=== PATIENT | female | born 1990 | race Caucasian/White ===

== ENCOUNTER 2017-10-15 16:02 | Emergency (ER) | payer OTHER ==
[~2017-10-15] VITALS: Ht 170.2 cm; Wt 129.3 kg
[~2017-10-15 16:02] MED LIST: CHOL400T PO; TOP100 PO
[2017-10-15 16:24] VITALS: BP 119/89
[2017-10-15 16:48] VITALS: BP 118/85
== END 2017-10-15 16:50 | disposition home or self-care (01) ==
LOC: MED 16:02
DX: E65 Localized adiposity (principal); J45.909 Unspecified asthma, uncomplicated; Z79.899 Other long term (current) drug therapy
CPT/HCPCS: 99283

== ENCOUNTER 2018-07-29 13:34 | Inpatient (IN) | payer OTHER ==
[~2018-07-29] VITALS: Ht 175.3 cm; Wt 108.0 kg
[2018-07-29 13:40] VITALS: BP 127/50
--- NOTE | 2018-07-29 13:50 | NUR ---
brought in by EMS from home---mother called 911 as pt with repeated tonic clonic seizure activity 45mins given 2.5mg versed IN x 2 by fire rescue followed by 5mg versed IM no injury no incontinent noted upon arrival to ER, pt answering questions holding conversation----admits to have had a recent sinus infection
--- NOTE | 2018-07-29 14:36 | NUR ---
DR SHAH AT BEDSIDE FOR PT EVAL
[2018-07-29] MEDS ORDERED: NACL 0.9% 1,000 ML IV ONE (14:43)
[2018-07-29] MEDS ORDERED: NACL 0.9% 1,000 ML IV SCH (14:43)
[2018-07-29] MEDS ORDERED: ONDANSETRON 4 MG/2 ML VIAL IVP ONE (14:45)
[2018-07-29] MEDS ORDERED: LORazepam 2 MG/ML VIAL IVP ONE (14:45)
[2018-07-29] MEDS ORDERED: PROMETHAZINE 25 MG/ML VIAL IM ONE (14:45)
--- NOTE | 2018-07-29 14:59 | NUR ---
PT ASSISTED ONTO BED DRUMMOND. UNABLE TO GIVE URINE AT THIS TIME.
--- NOTE | 2018-07-29 15:02 | NUR ---
SHEY EMT AT BEDSIDE FOR EKG
--- NOTE | 2018-07-29 15:20 | NUR ---
WITNESSED TONIC CLONIC SEIZURE LASTING FOR 7 MINS. ATIVAN GIVEN ORDERED. PT AAO X4. PERRL BRISK 3 MM. FULL CLEAR SPEECH. NO INCONTINENCE NOTED. PT DENIES SOB. DR SHAH AT BEDSIDE FOR PT EVALUATION
[2018-07-29 15:48] LABS: BASOPHILS # (AUTO) 0.1 K/uL (0.00-0.22); BASOPHILS % (AUTO) 0.6 % (0.0-2.0); EOSINOPHILS # (AUTO) 0.3 K/uL (0-0.4); EOSINOPHILS % (AUTO) 3.2 % (0.0-4.0); HEMATOCRIT 40.8 % (36-48); HEMOGLOBIN 13.3 g/dL (12.0-16.0); LYMPHOCYTES % (AUTO) 21.8 % (20.5-51.1); MEAN CORPUSCULAR HEMOGLOBIN 28 pg (27-31); MEAN CORPUSCULAR HGB CONC 33 g/dL (33-37); MEAN CORPUSCULAR VOLUME 86.2 fL (80-94); MONOCYTES # (AUTO) 0.7 K/uL (0.8-1.0); MONOCYTES % (AUTO) 7.3 % (1.7-9.3); NEUTROPHILS # (AUTO) 6.2 K/uL (1.8-7.7); NEUTROPHILS % (AUTO) 67.1 % (42.2-75.2); PLATELET COUNT (AUTO) 179 K/uL (140-450); RED BLOOD CELL COUNT(AUTO) 4.73 MIL/uL (4.20-5.40); RED CELL DISTRIBUTION WIDTH 14.1 % (11.6-13.7); WHITE BLOOD COUNT (AUTO) 9.2 K/uL (4.8-10.8)
--- NOTE | 2018-07-29 15:50 | NUR ---
Note kavitha in ED - 07/29/18 at 1659 by MED WITNESSED TONIC CLONIC SEIZURES LASTING APPROX 4 MINS. PT AAO X4 FULL CLEAR SPEECH. PERRL BRISK 3 MM. NO TRAUMA OR INJURY SUSTAINED. SAFETY ENSURED. WILL CONTINUE TO MONITOR.
--- NOTE | 2018-07-29 15:50 | NUR ---
WITNESSED TONIC CLONIC SEIZURES LASTING APPROX 4 MINS. PT AAO X4 FULL CLEAR SPEECH. PT RESPONSIVE AND FOLLOW COMMANDS. PERRL BRISK 3 MM. NO TRAUMA OR INJURY SUSTAINED. SAFETY ENSURED. WILL CONTINUE TO MONITOR.
--- NOTE | 2018-07-29 15:55 | NUR ---
OBTAINED URINE VIA CATH. CALLED LAB FOR CHILI POWDER MIXER.
--- NOTE | 2018-07-29 16:13 | NUR ---
PT TAKEN TO CT VIA BED. PT PLACED ON MONITOR. CHAPERONED PT. PT CONVERSATING APPROPRIATELY
--- NOTE | 2018-07-29 16:14 | NUR ---
PT TAKEN TO CT ACCOMPANIED BY NURSE HOOD
[2018-07-29 16:15] LABS: ANION GAP 14.2 (8-16); CARBON DIOXIDE 24.6 mmol/L (21-32); CHLORIDE 106 mmol/L (98-107); GFR ARICAN-AMERICAN 86 mL/min (>90); GLUCOSE 93 mg/dL (74-106); POTASSIUM 3.8 mmol/L (3.5-5.1); SODIUM SERUM 141 mmol/L (136-145); UREA NITROGEN, BLOOD 16 mg/dL (7-18)
--- NOTE | 2018-07-29 16:20 | NUR ---
WITNESSED SEIZURE WITH JERKING MOVEMENTS APPROX [address] PT TAKEN BACK TO ROOM VIA BED WITH CAN DRAGGER. NOTIFIED CHARGE NURSE. PT RESPONSIVE TO VOICE, ABLE TO FOLLOW COMMANDS, FULL CLEAR SPEECH. PERRL BRISK 3 MM. PT PLACED BACK ON FULL ONLINE SERVICES MANAGER. SEIZURE PRECAUTIONS BACK ON. WILL CONTINUE TO MONITOR.
[2018-07-29 16:28] LABS: ALBUMIN 3.6 g/dL (3.4-5.0); ASPARTATE AMINOTRANSFERASE 18 U/L (15-37); TOTAL BILIRUBIN 0.4 mg/dL (0.0-1.0)
--- NOTE | 2018-07-29 16:35 | NUR ---
RADIOLOGY AT BEDSIDE.
[2018-07-29] MEDS ORDERED: diphenhydrAMINE 50 MG/ML VIAL IVP ONE (16:40)
--- NOTE | 2018-07-29 17:10 | NUR ---
PT IS AAO X4. FUL CLEAR SPEECH. CONVERSATING WITH MOTHER APPROPRIATELY. NO SIGNS AND SYMPTOMS OF DISTRESS NOTED. SAFETY ENSURED. MOTHER AT BEDSIDE.
[2018-07-29 17:50] LABS: ACETONE, SERUM NEGATIVE (NEGATIVE)
[2018-07-29 17:59] LABS: MAGNESIUM 1.8 mg/dL (1.8-2.4)
[2018-07-29 18:09] LABS: AMYLASE 47 U/L (25-115); LIPASE 148 U/L (73-393)
--- NOTE | 2018-07-29 18:22 | NUR ---
PT ACTIVELY SEIZING WITH JERKING MOVEMENTS. V/S: 128/58, 125, 100% 2LPM VIA NC, 19. DR SHAH NOTIFIED. PT SAFETY ENSURED. RN AT BEDSIDE
--- NOTE | 2018-07-29 18:24 | NUR ---
JERKING MOVEMENTS NOTED LASTING APPROX 7 MINS. PT RESPONSIVE TO COMMANDS. OPENS EYES WHEN ASKED, PT PERRL BRISK 3MM. NO TRAUMA NOTED. SAFETY ENSURED. RN AT BEDSIDE FOR MONITORING.
[2018-07-29 18:26] LABS: APPEARANCE,URINE CLEAR (CLEAR); BILIRUBIN,URINE NEGATIVE (NEGATIVE); BLOOD, URINE 1+ (NEGATIVE); COLOR,URINE YELLOW (YELLOW); LEUKOCYTE ESTERASE ,URINE NEGATIVE (NEGATIVE); NITRITE, URINE NEGATIVE (NEGATIVE); UGLUCOSE NEGATIVE (NEGATIVE)
[2018-07-29 18:35] LABS: RBC,URINE 0-5 /HPF (0-5)
[2018-07-29 18:36] LABS: WBC,URINE 0-5 /HPF (0-5)
[2018-07-29 18:38] LABS: BARBITURATE, URINE NEG. ng/ml (NEG <=200); BENZODIAZEPINE, URINE POS. ng/mL (NEG <=200); CANNABINOID, URINE NEG. ng/mL (NEG <=50); COCAINE, URINE NEG. ng/mL (NEG <=300); OPIATE, URINE NEG. ng/mL (NEG <=2000); PHENCYCLIDINE SCREEN,URINE NEG. ng/mL (NEG <=25)
--- NOTE | 2018-07-29 19:10 | NUR ---
received report from IDALMIS Fuentes. assumed care at this time
--- NOTE | 2018-07-29 19:10 | NUR ---
Pt report given to IDALMIS Gaines. Transfer of care at this time.
--- NOTE | 2018-07-29 19:33 | NUR ---
Patient will be admitted to care of Dr. Venegas. Admited to MST. Will go to room 126A. Belongings list completed. VSS at time of transfer. Report to IDALMIS Palm. Transfer fo care at this time
[2018-07-29] MEDS ORDERED: BISACODYL 10 MG SUPP RC PRN (19:35)
[2018-07-29] MEDS ORDERED: guaiFENesin DM 200/20 MG-10 ML 10 ML UDC PO PRN (19:35)
[2018-07-29] MEDS ORDERED: ALUMINUM HYD/MAG/SIMETHICONE 30 ML UDC PO PRN (19:35)
[2018-07-29] MEDS ORDERED: MORPHINE SULFATE 2 MG/ML SYR IVP PRN (19:35)
[2018-07-29] MEDS ORDERED: LORazepam 2 MG/ML VIAL IVP PRN (19:35)
[2018-07-29] MEDS ORDERED: ACETAMINOPHEN 325 MG TAB PO PRN (19:35)
[2018-07-29] MEDS ORDERED: ALBUTEROL 0.083% 2.5 MG/3 ML NEBU INH PRN (19:35)
[2018-07-29] MEDS ORDERED: ZOLPIDEM 5 MG TAB PO PRN (19:35)
[2018-07-29] MEDS ORDERED: diphenhydrAMINE 50 MG/ML VIAL IVP PRN (19:35)
[2018-07-29] MEDS ORDERED: POTASSIUM CHLORIDE 10 MEQ TABER PO PRN (19:35)
[2018-07-29] MEDS ORDERED: HYDROcodone/APAP 5/325 MG 1 TAB TAB PO PRN ×2 (19:35)
[2018-07-29] MEDS ORDERED: cloNIDine 0.1 MG TAB PO PRN (19:35)
[2018-07-29] MEDS ORDERED: MAG SULF 2000 MG/WATER PREMIX 50 ML IV PRN (19:35)
[2018-07-29] MEDS ORDERED: POTASSIUM CHLORIDE 40 MEQ, LIDOCAINE 1% 25 MG in NACL 0.9% 250 ML IV PRN (19:35)
[2018-07-29] MEDS ORDERED: ACETAMINOPHEN 650 MG SUPP RC PRN (19:35)
[2018-07-29] MEDS ORDERED: DOCUSATE SODIUM 250 MG GELCAP PO PRN (19:35)
[2018-07-29] MEDS ORDERED: IPRATROPIUM 0.02% 0.5 MG/2.5 ML NEBU INH PRN (19:35)
[2018-07-29] MEDS ORDERED: ONDANSETRON 4 MG/2 ML VIAL IVP PRN (19:35)
[2018-07-29] MEDS ORDERED: SODIUM PHOSPHATE 118 ML ENEM RC PRN (19:35)
[2018-07-29] MEDS ORDERED: MAGNESIUM OXIDE 400 MG TAB PO PRN (19:35)
[2018-07-29 19:40] VITALS: BP 101/59
--- NOTE | 2018-07-29 19:40 | NUR ---
PT ARRIVED TO UNIT VIA GURNEY WITH MOTHER AT BEDSIDE. PT AMBULATED TO UNIT BED UNASSISTED AND TOLERATED WELL. RECEIVED REPORT FROM ER NURSE. PT AOX4 WITH HX: SEIZURE, HIGH FUNCTIONING AUTISM, BI-POLAR (MEDICINE NON-COMPLIANCE), ON ROOM AIR WITH LEFT HAND #20G INSERTED BY PARAMEDICS. DISCUSSED PLAN OF CARE AND PT VERBALIZED UNDERSTANDING. NO S/S OF RESPIRATORY DISTRESS OR DISCOMFORT AT THIS TIME. BED IN LOWEST POSITION, BED BREAKS ON, BOTH SIDE RAILS UP, AND SEIZURE PRECAUTIONS IN PLACE. BEDSIDE TABLE AND CALL LIGHT ARE WITHIN REACH. WILL CONTINUE TO MONITOR.
--- NOTE | 2018-07-29 20:00 | NUR ---
VITAL SIGNS TAKEN AND TOLERATED WELL. MRSA SWAB COLLECTED AND TOLERATED WELL. NO S/S OF RESPIRATORY DISTRESS OR DISCOMFORT NOTED AT THIS TIME. WILL CONTINUE TO MONITOR.
--- NOTE | 2018-07-29 21:00 | NUR ---
LEFT HAND IV SITE WAS NOT GIVING BLOOD RETURN AND HURT PT WHEN FLUSHED. TEGADERM HAS BEEN TAMPERED WITH MY PT- HOLE EXACTLY WHERE IV PUNCTURED THE SKIN AND FOUND PT TAKING MEDICAL TAPE OFF OF THE IV SITE. EDUCATED PT ON NOT TAKING OFF TAPE FROM IV SITE. NEW IV SITE INSERTED BY CHARGE NURSE IVY-IDALMIS ON FIRST ATTEMPT. LEFT FA #22G. PT TOLERATED WELL. NO S/S OF RESPIRATORY DISTRESS OR DISCOMFORT NOTED AT THIS TIME. WILL CONTINUE TO MONITOR.
[2018-07-29] MEDS: levETIRAcetam 500 MG in NACL 0.9% 100 ML IV SCH (21:02)
--- NOTE | 2018-07-29 21:02 | NUR ---
SCHEDULED MEDICATION KEPPRA GIVEN AND TOLERATED WELL. NO S/S OF RESPIRATORY DISTRESS OR DISCOMFORT NOTED AT THIS TIME. WILL CONTINUE TO MONITOR.
[2018-07-29] MEDS ORDERED: levETIRAcetam 100 MG/ML VIAL IV ONE (21:07)
--- NOTE | 2018-07-29 22:00 | NUR ---
PT SLEEPING IN BED. NO S/S OF RESPIRATORY DISTRESS OR DISCOMFORT NOTED AT THIS TIME. WILL CONTINUE TO MONITOR.
[2018-07-30] VITALS: BP 92/57
--- NOTE | 2018-07-30 | NUR ---
VITAL SIGNS TAKEN AND TOLERATED WELL. NO S/S OF RESPIRATORY DISTRESS OR DISCOMFORT NOTED AT THIS TIME. WILL CONTINUE TO MONITOR.
--- NOTE | 2018-07-30 02:00 | NUR ---
PT CONTINUES TO SLEEP IN BED. NO S/S OF RESPIRATORY DISTRESS OR DISCOMFORT NOTED AT THIS TIME. WILL CONTINUE TO MONITOR.
[2018-07-30 04:00] VITALS: BP 90/53
--- NOTE | 2018-07-30 04:00 | NUR ---
VITAL SIGNS TAKEN AND TOLERATED WELL. NO S/S OF RESPIRATORY DISTRESS OR DISCOMFORT NOTED AT THIS TIME. WILL CONTINUE TO MONITOR.
--- NOTE | 2018-07-30 04:55 | NUR ---
CAME INTO PT ROOM AND PT STATED, "I'M ABOUT TO HAVE A SEIZURE." I NOTICED THE RIGHT SIDED RAIL PADDING WAS OFF AND SHE SAID SHE WAS COLD SO SHE TOOK THE BLANKET TO COVER HERSELF. I ASKED HER WHAT SHE WAS FEELING THAT SHE KNOWS SHE'S GOING TO HAVE A SEIZURE AND SHE DIDN'T RESPOND. I LEFT THE ROOM TO GET ANOTHER BLANKET TO PAD THE SIDE RAIL AND FOUND PT ACTIVELY SEIZING IN BED. CALLED CHARGE NURSE KEVIN FOR HELP WITH TAKING ATIVAN OUT OF THE PIXIS. CHARGE NURSE ARRIVED WITH ATIVAN AND WAS ADMINISTERED. PT TOLERATED WELL. PT CONTINUES TO SEIZE SHAKING HER BODY AND CHANGING POSITIONS FROM LEFT TO RIGHT. NO S/S OF RESPIRATORY DISTRESS OR DISCOMFORT NOTED AT THIS TIME. WILL CONTINUE TO MONITOR.
[2018-07-30] MEDS: LORazepam 2 MG/ML VIAL IVP PRN ×2 (05:12→10:36)
--- NOTE | 2018-07-30 05:12 | NUR ---
ATIVAN WAS GIVEN SEIZURE PROTOCOL WITH CHARGE NURSE KEVIN PRESENT. PT TOLERATED WELL. NO S/S OF RESPIRATORY DISTRESS OR DISCOMFORT NOTED AT THIS TIME. WILL CONTINUE TO MONITOR.
--- NOTE | 2018-07-30 05:30 | NUR ---
INTERMITTENT SEIZING WITH CHARGE NURSE IVY-IDALMIS PRESENT THAT CEASED AT 0519 AND IS NOW CALM IN BED SLEEPING. ACCORDING TO ORDER TO DELIVERY SUPERVISOR, PT CONTINUES TO HAVE SR WITH ARTIFACTS. NO S/S OF RESPIRATORY DISTRESS OR DISCOMFORT NOTED AT THIS TIME. WILL CONTINUE TO MONITOR.
--- NOTE | 2018-07-30 07:38 | NUR ---
RECEIVED HAND OFF REPORT FROM ASPHALT SPREADER NURSE PT IS STABLE AND IN NO APPARENT DISTRESS. ALL SAFETY MEASURES ARE IN PLACE WILL CONTINUE TO MONITOR,
[2018-07-30 08:00] VITALS: BP 99/56
--- NOTE | 2018-07-30 09:13 | NUR ---
PATIENT HAS BEEN SCREENED AND CATEGORIZED MODERATE NUTRITION RISK. PATIENT WILL BE SEEN WITHIN 3-5 DAYS OF ADMISSION. 08/01/18RAMAN BA[address]
--- NOTE | 2018-07-30 09:30 | NUR ---
FREQUENT ROUNDING ON PT PT IS AWAKE AND STABLE IN BED, ALL SAFETY MEASURES ARE IN PLACE. PT IS TALKING WILL CONTINUE TO MONITOR,
[2018-07-30] MEDS: levETIRAcetam 500 MG in NACL 0.9% 100 ML IV SCH (09:38)
--- NOTE | 2018-07-30 10:43 | NUR ---
ATIVAN GIVEN PER ORDER. PT FAMILY CALLED AND STATED THE PATIENT WAS EXPERIENCING A SEIZURE. ARRIVED TO THE ROOM AT 1026 PT WAS SHOWING SIGNS OF SEIZURE. MOTHER AT PT BEDSIDE PT WAS ON HER SIDE. WENT TO GET ATIVAN. CAME BACK AT 1028 PT NO LONGER SHOWING SIGNS OF SEIZURE TRIED TO AROUSE PT TO SEE HER NEURO STATUS PT STARTED SHOWING SIGNS OF SEIZURE AGAIN. FROM 1033 TO 1036. ASSESSED PT TELE STRIP AND PLACED IN PT CHART.
--- NOTE | 2018-07-30 11:16 | NUR ---
FREQUENT ROUNDING PT IS AWAKE IN BED PT IS STABLE AND APPEARS IN NO APPARENT DISTRESS. ALL SAFETY MEASURES ARE IN PLACE. FAMILY IS AT THE BEDSIDE. WILL CONTINUE TO MONITOR.
[2018-07-30 12:37] VITALS: BP 114/65
--- NOTE | 2018-07-30 13:35 | NUR ---
PT WAS HAVING ANOTHER SEIZURE LIKE EPISODE FROM [address] AT PT BEDSIDE DR STATED THAT THOSE ARE SEIZURES. PT IS NOW STABLE AND IN NO APPARENT DISTRESS. ALL SAFETY MEASURES ARE IN PLACE WILL CONTINUE TO MONITOR. PT FAMILY IS AT BEDSIDE.
--- NOTE | 2018-07-30 15:38 | NUR ---
ENDORSED PT TO ALDA FOR CONTINUITY OF CARE. PT IS AWAKE AND STABLE PT IS IN NO APPARENT DISTRESS. AND ALL SAFETY MEASURES ARE IN PLACE.
--- NOTE | 2018-07-30 15:38 | NUR ---
Received report from Priti sprague. Pt stable at this time. Call light within reach.
[2018-07-30 16:00] VITALS: BP 121/75
--- NOTE | 2018-07-30 16:00 | NUR ---
Pt assisted back to bed after toileting. Pt with wobbly gait, able to amb with handheld assist. Call light within reach.
--- NOTE | 2018-07-30 16:05 | NUR ---
Pt observed having generalized body shaking. Bilat padded siderails up for safety. Pt nonverbal but obeys commands when instructed to raise arm & to push self up higher in bed. No SOB noted, no excessive oral secretions. Vital signs obtained. Pt able to reposition self with min assist. Call light within reach. Will cont to monitor.
--- NOTE | 2018-07-30 17:36 | NUR ---
Pt seen ambulating in hallway. Asked where she is going, but pt does not respond. Walked alongside pt, noted to be trying to open exit doors. Pt started running towards exits. Security paged to assist. Pt was redirected by security personnel back to her room. Spoke to Art (father) on the phone for assistance. Per Art, he will call pt's mother to come back & monitor pt at bedside. Paged Dr. Khoury to report behavior and prn IM med. Awaiting call back.
[2018-07-30] MEDS ORDERED: LORazepam 2 MG/ML VIAL IM/IVP PRN ×2 (17:40)
[2018-07-30] MEDS ORDERED: LORazepam 2 MG/ML VIAL ONE (17:57)
--- NOTE | 2018-07-30 19:20 | NUR ---
ENDORSED PT TO NOC SHIFT NURSE. NO DISTRESS NOTED AT THIS TIME. FAMILY AT BEDSIDE.
--- NOTE | 2018-07-30 19:21 | NUR ---
RECEIVED REPORT FROM DAY SHIFT NURSE ALDA-RN AT BEDSIDE. PT AOX4 WITH HX: SEIZURE, HIGH FUNCTIONING AUTISM, BI-POLAR (MEDICINE NON-COMPLIANCE), ON ROOM AIR. NO IV SITE IN PLACE. PT FAMILY AT BEDSIDE. DISCUSSED PLAN OF CARE AND PT VERBALIZED UNDERSTANDING. NO S/S OF RESPIRATORY DISTRESS OR DISCOMFORT AT THIS TIME. BED IN LOWEST POSITION, BED BREAKS ON, BOTH SIDE RAILS UP, AND SEIZURE PRECAUTIONS IN PLACE. BEDSIDE TABLE AND CALL LIGHT ARE WITHIN REACH. WILL CONTINUE TO MONITOR.
[2018-07-30 20:00] VITALS: BP 122/81
--- NOTE | 2018-07-30 20:00 | NUR ---
VITAL SIGNS TAKEN AND TOLERATED WELL. NO S/S OF RESPIRATORY DISTRESS OR DISCOMFORT NOTED AT THIS TIME. WILL CONTINUE TO MONITOR.
--- NOTE | 2018-07-30 21:01 | NUR ---
PT C/O HEADACHE. TYLENOL GIVEN AND TOLERATED WELL. NO S/S OF RESPIRATORY DISTRESS OR DISCOMFORT NOTED AT THIS TIME. WILL CONTINUE TO MONITOR.
--- NOTE | 2018-07-30 22:00 | NUR ---
PT REQUESTED TO TAKE A SHOWER. SELENA MELO AND PT'S SISTER ASSISTED PT IN THE SHOWER AND TOLERATED WELL. PT NOW BACK IN BED RESTING. NO S/S OF RESPIRATORY DISTRESS OR DISCOMFORT NOTED AT THIS TIME. WILL CONTINUE TO MONITOR.
[2018-07-31] VITALS: BP 91/54
--- NOTE | 2018-07-31 | NUR ---
VITAL SIGNS TAKEN AND TOLERATED WELL. NO S/S OF RESPIRATORY DISTRESS OR DISCOMFORT NOTED AT THIS TIME. WILL CONTINUE TO MONITOR.
--- NOTE | 2018-07-31 02:00 | NUR ---
PT SLEEPING IN BED. NO S/S OF RESPIRATORY DISTRESS OR DISCOMFORT NOTED AT THIS TIME. WILL CONTINUE TO MONITOR.
[2018-07-31 04:00] VITALS: BP 98/50
--- NOTE | 2018-07-31 04:00 | NUR ---
VITAL SIGNS TAKEN AND TOLERATED WELL. NO S/S OF RESPIRATORY DISTRESS OR DISCOMFORT NOTED AT THIS TIME. WILL CONTINUE TO MONITOR.
--- NOTE | 2018-07-31 06:00 | NUR ---
PT CONTINUES TO SLEEP IN BED. NO S/S OF RESPIRATORY DISTRESS OR DISCOMFORT NOTED AT THIS TIME. WILL CONTINUE TO MONITOR.
--- NOTE | 2018-07-31 07:15 | NUR ---
RECEIVED BEDSIDE REPORT FROM MACHINIST 2ND SHIFT NURSE FOR CONTINUITY OF CARE. PATIENT IS SLEEPING ON BED AT THIS TIME. EVEN AND UNLABORED CHEST RISES NOTED, ON RA. PATIENT IS AAOX4. NO SIGNS OF DISTRESS NOTED. NO IV SITE DEVELOPED, PER MACHINIST 2ND SHIFT NURSE, PATIENT REMOVED THE IV AND REFUSED TO GET ANOTHER ONE. SKIN INTACT AND CLEAN. PATIENT IS ABLE TO AMBULATE AND CONTINENT. TELE MONITOR ATTACHED. SAFETY MEASURES IN PLACE. BED IN LOW POSITION AND CALL LIGHT WITHIN REACH.
--- NOTE | 2018-07-31 07:38 | NUR ---
RAPID RESPONSE CALLED AT THIS TIME PATIENT PRESENTING WITH SEIZURES SATURTATION 97% OM ROOM AIR HR 122 RR 20 BREATH SOUNDS DECREASED WITH NO EVIDENCE OF SOB RHONCHI OR WHEEZING
--- NOTE | 2018-07-31 07:40 | NUR ---
PATIENT PRESENTING WITH CONTINUED SEIZURES AND DESCENDING SATURATION TO 89% PLACED ON SUPPLEMENTAL OXYGEN AT 15LPM VIA NON REBREATHER SATURATION ASCENDING TO 100% HR 128 RR 20 BREATH SOUNDS DECREASED BILATERAL NO SOB NOTED
--- NOTE | 2018-07-31 07:43 | NUR ---
CONTINUANCE OF SEIZURES IN PROGRESS SATURATION 99% ON SUPPLEMENTAL OXYGENT AT 15 LPM VIA NON REBREATHER HR 119 RR 20 BREATH SOUNDS CLEAR BILATERAL NO SOB NOTED
--- NOTE | 2018-07-31 07:48 | NUR ---
SEIZURES IN PROGRESS SATURATION 99% ON SUPPLEMENTAL OXYGEN AT 15 LPM VIA NON REBREATHER HR 110 RR 20 BREATH SOUNDS CLEAR BILATERAL NO SOB NOTED
--- NOTE | 2018-07-31 07:50 | NUR ---
SEIZURES CONTROLLED SATURATION 100% ON SUPPLEMENTAL OXYGEN AT 15 LPM VIA NON REBREATHER SATURATION 100% HR 102 RR 20 BREATH SOUNDS CLEAR BILATERAL NO SOB NOTED
[2018-07-31] MEDS ORDERED: LORazepam 2 MG/ML VIAL ONE ×2 (07:54→08:01)
[2018-07-31 08:00] VITALS: BP 106/66
--- NOTE | 2018-07-31 08:20 | NUR ---
MOVED PATIENT INTO ROOM 107A. PATIENT IS AWAKE, RESPONSIVE WITH EYE OPENS. NO SIGNS OF DISTRESS NOTED. SAFETY MEASURES IN PLACE. TELE MONITOR ATTACHED.
--- NOTE | 2018-07-31 09:15 | NUR ---
PATIENT IS AWAKE AND READING MAGAZINE ON BED. NO SIGNS OF DISTRESS NOTED. TELE MONITOR ATTACHED. SAFETY MEASURES IN PLACE. BED IN LOW POSITION AND CALL LIGHT WITHIN REACH.
--- NOTE | 2018-07-31 09:45 | NUR ---
MOTHER JONATHAN WAS AT BEDSIDE AND TALKING TO PATIENT. NO SIGNS OF DISTRESS NOTED. SAFETY MEASURES IN PLACE. TELE MONITOR ATTACHED.
--- NOTE | 2018-07-31 09:50 | NUR ---
PATIENT HAS ANOTHER EPISODE OF PSEUDOSEIZURE AND ENDED IN 6 MINS. VITAL SIGNS ARE WITHIN PATIENT'S NORMAL PARAMETER. NO SIGNS OF INJURY OBSERVED. MOTHER JONATHAN IS BY BEDSIDE. SAFETY MEASURES IN PLACE. SEIZURE PADDING IN PLACE. TELE MONITOR ATTACHED. BED IN LOW POSITION. DR SANTILLAN NOTIFIED AND WAS AWARE.
--- NOTE | 2018-07-31 10:30 | NUR ---
DR SANTILLAN IS TALKING TO PATIENT AND PATIENT'S MOM JONATHAN AT BEDSIDE. NO SIGNS OF DISTRESS NOTED. SAFETY MEASURES IN PLACE.
--- NOTE | 2018-07-31 11:15 | NUR ---
DISCHARGE INSTRUCTION PROVIDED TO PATIENT AND MOTHER JONATHAN AT BEDSIDE. EDUCATED PATIENT AND MOTHER JONATHAN TO FOLLOW UP WITH MD, DISEASE MANAGEMENT, SIGNS AND SYMPTOMS, MEDICATION REGIMEN, SIDE EFFECT, AND DIET REGIMEN. MOTHER JONATHAN VERBALIZED UNDERSTANDING. PROVIDED PRINTED OUT DISCHARGE INSTRUCTION AND PRESCRIPTION. INSTRUCTED PATIENT AND MOTHER JONATHAN TO TAKE ALL THE BELONGINGS. PER JONATHAN, SHE IS WAITING FOR HER RIDE, IT MIGHT TAKE SOME TIME. PATIENT IS RESTING ON BED AT THIS TIME. NO SIGNS OF DISTRESS NOTED. SAFETY MEASURES IN PLACE.
--- NOTE | 2018-07-31 11:25 | NUR ---
PATIENT HAS CHANGE INTO HER OWN CLOTHES. PATIENT PULLED OUT THE IV BY HERSELF. CHECKED IV CANNULA AND ITS INTACT, MINIMAL BLEEDING AT IV SITE. PER JONATHAN, SHE IS STILL WAITING FOR HER RIDE.
[2018-07-31 12:00] VITALS: BP 115/65
--- NOTE | 2018-07-31 12:01 | NUR ---
PATIENT RECEIVED HER LUNCH TRAY AND EATING LUNCH ON BED AT THIS TIME. NO SIGNS OF DISTRESS NOTED. SAFETY MEASURES IN PLACE. AWAITING FOR RIDE TO ARRIVE THE HOSPITAL.
--- NOTE | 2018-07-31 12:20 | NUR ---
REMOVED ALL ARM BANDS. PATIENT TOOK ALL HER BELONGINGS. ESCORTED PATIENT TO THE LOBBY WITH WHEELCHAIR. PATIENT IS DISCHARGE AT THIS TIME IN STABLE CONDITION ACCOMPANIED BY MOTHER JONATHAN.
== END 2018-07-31 12:20 | disposition home or self-care (01) | DRG 756 ==
LOC: MED 13:34 → MMU 19:00 → MTU 07-31 09:18
PROVIDERS: ADMIT Internal Medicine Pulmonary Disease; ATTEND Internal Medicine Pulmonary Disease
DX: F44.5 Conversion disorder with seizures or convulsions (principal); Z91.14 Patient's other noncompliance with medication regimen; E66.9 Obesity, unspecified; F41.0 Panic disorder [episodic paroxysmal anxiety]; J45.909 Unspecified asthma, uncomplicated; F41.9 Anxiety disorder, unspecified; Z68.35 Body mass index [BMI] 35.0-35.9, adult; Z79.899 Other long term (current) drug therapy
CPT/HCPCS: 36415; 36600; 70450; 71045; 80053; 80305; 81001; 81025; 82009; 82150; 82803; 82948; 83605; 83690; 83735; 84484; 85025; 85610; 85730; 87081; 93005; 96361; 96372; 96374; 96375; 99285; G0482; J1200; J1953; J2060; J2405; J2550; J7030; Q0092

== ENCOUNTER 2018-07-31 21:23 | Inpatient (IN) | payer OTHER ==
[~2018-07-31] VITALS: Ht 170.2 cm; Wt 134.7 kg
[2018-07-31 21:25] VITALS: BP 131/65
--- NOTE | 2018-07-31 21:50 | NUR ---
TO ER BED 5
--- NOTE | 2018-07-31 21:55 | NUR ---
28/F BIB MOTHER FOR SI. PT ARRIVES TO ED WITH MULTIPLE SUPERFICIAL LACERATIONS TO BL WRISTS AND FOREARMS. PT DENIES ANY OTHER SYMPTOMS. PT AOX4, GCS 15, SKIN NORMAL WARM AND DRY, RR EVEN AND UNLABORED. 1:1 SITTER AT BEDSIDE WITH CLOSE MONITORING. ENVIRONMENT CHECKED FOR SAFETY, SAFETY MEASURES ENSURED. PT WAS PLACED IN GOWN, BELONGINGS SENT TO SECURITY. HX DEPRESSION RX PAXIL
--- NOTE | 2018-07-31 22:20 | NUR ---
TELEPSYCH REQUEST SENT
[2018-07-31 22:28] LABS: BASOPHILS % (AUTO) 0.6 % (0.0-2.0); EOSINOPHILS # (AUTO) 0.4 K/uL (0-0.4); EOSINOPHILS % (AUTO) 4.9 % (0.0-4.0); HEMOGLOBIN 12.8 g/dL (12.0-16.0); LYMPHOCYTES # (AUTO) 2.4 K/uL (2.5-16.5); MEAN CORPUSCULAR HEMOGLOBIN 29 pg (27-31); MEAN CORPUSCULAR HGB CONC 33 g/dL (33-37); MEAN CORPUSCULAR VOLUME 86.7 fL (80-94); MONOCYTES # (AUTO) 0.7 K/uL (0.8-1.0); MONOCYTES % (AUTO) 7.8 % (1.7-9.3); NEUTROPHILS # (AUTO) 5.2 K/uL (1.8-7.7); NEUTROPHILS % (AUTO) 59.7 % (42.2-75.2); PLATELET COUNT (AUTO) 191 K/uL (140-450); RED CELL DISTRIBUTION WIDTH 14.1 % (11.6-13.7); WHITE BLOOD COUNT (AUTO) 8.7 K/uL (4.8-10.8)
--- NOTE | 2018-07-31 22:33 | NUR ---
PT ATTEMPTED TO COLLECT URINE, UNABLE TO AT THIS TIME, WILL TRY AGAIN
[2018-07-31 22:37] LABS: ANION GAP 14.2 (8-16); CARBON DIOXIDE 26.5 mmol/L (21-32); CHLORIDE 106 mmol/L (98-107); CREATININE 1.1 mg/dL (0.6-1.3); GFR ARICAN-AMERICAN 77 mL/min (>90); GLUCOSE 88 mg/dL (74-106); POTASSIUM 3.7 mmol/L (3.5-5.1); SODIUM SERUM 143 mmol/L (136-145); UREA NITROGEN, BLOOD 13 mg/dL (7-18)
--- NOTE | 2018-07-31 22:40 | NUR ---
SPOKE WITH/GAVE REPORT TO PSYCH AUDRA GREENE OVER THE PHONE.
[2018-07-31 22:43] LABS: ACETAMINOPHEN < 0.5 ug/ml (10-30); ALBUMIN 3.5 g/dL (3.4-5.0); ASPARTATE AMINOTRANSFERASE 18 U/L (15-37); SALICYLATE < 2.8 mg/dL (2.8-20.0); TOTAL BILIRUBIN 0.5 mg/dL (0.0-1.0)
--- NOTE | 2018-07-31 23:00 | NUR ---
WOUND CARE PERFORMED ON BL WRIST AND FA BY JEFF EMT, PT TOLERATED WELL.
--- NOTE | 2018-08-01 00:30 | NUR ---
ATTEMPTED TO COLLECT URINE SAMPLE VIA 16FR STRAIGHT CATH WITH EDUCATION. FEMALE CHAPPERONE PABLOU AT BEDSIDE. UNSUCCESSFUL DUE TO PT RESTLESS AND TENSING MUSCLES DESPITE REASSURANCE. WILL ATTEMPT AGAIN LATER
--- NOTE | 2018-08-01 00:55 | NUR ---
PT LAYING IN BED, RR EVEN AND ULABORED. DENIES ANY PAIN. 1:1 SITTER WITH CLOSE MONITORING AT BEDSIDE, SAFETY MEASURES ENSURED. ALL NEEDS MET AT THIS TIME.
[2018-08-01 01:24] LABS: BARBITURATE, URINE NEG. ng/ml (NEG <=200); BENZODIAZEPINE, URINE POS. ng/mL (NEG <=200); CANNABINOID, URINE NEG. ng/mL (NEG <=50); COCAINE, URINE NEG. ng/mL (NEG <=300); OPIATE, URINE NEG. ng/mL (NEG <=2000); PHENCYCLIDINE SCREEN,URINE NEG. ng/mL (NEG <=25)
--- NOTE | 2018-08-01 04:04 | NUR ---
PT SITTING IN BED, RR EVEN AND ULABORED. VS NOTED, DENIES ANY PAIN. 1:1 SITTER WITH CLOSE MONITORING AT BEDSIDE, SAFETY MEASURES ENSURED. ALL NEEDS MET AT THIS TIME.
--- NOTE | 2018-08-01 04:10 | NUR ---
CALLED AND SPOKE WEmiliano PINEDA AT [facility], SHE INFORMED ME THAT SHE HAD CONTACTED 6 DIFFERENT FACILITIES, NO BEDS AVAILABLE.
[2018-08-01] MEDS ORDERED: ONDANSETRON 4 MG/2 ML VIAL IVP PRN (04:20)
[2018-08-01] MEDS ORDERED: LORazepam 2 MG/ML VIAL IVP PRN (04:20)
[2018-08-01] MEDS ORDERED: HYDROcodone/APAP 5/325 MG 1 TAB TAB PO PRN ×2 (04:20)
--- NOTE | 2018-08-01 04:35 | NUR ---
Patient will be admitted to care of DR. SANTILLAN. Admited to MEDSUR. Will go to room 109B. Belongings list completed. Report to IDALMIS AMAYA AT BEDSIDE.
[2018-08-01 05:00] VITALS: BP 109/68
--- NOTE | 2018-08-01 05:00 | NUR ---
ADMITTED A 28 F. FROM ER . CAME BY ALMA ACCOMPANIED BY ER NURSE AND SITTER1:1 DUE TO SUICIDAL ATTEMPT. PT WAS JUST DISCHARGED IN THIS UNIT YESTERDAY. PT IS AWAKE,ALERT AND ORIENTED X4 AT THIS TIME. WITH MULTIPLE LACERATIONS OF KENNETH WRIST. SHE VERBALIZED THAT SHE DID IT DUE TO DEPRESSION. WHICH PT CAN'T TELL THE CAUSE. DENIES ANY HALLUCINATION. NO IV ACCESS NOTED. ON OBSERVATION ONLY. PLAN OF CARE DISCUSSED WITH PT AND SEEMED PT VERBALIZED UNDERSTANDING AT THIS TIME. BED ON LOW POSITION. WITH NO OBJECTS THAT CAN BE USED TO HURT SELF. SHE JUST HAVE A MAGAZINE THAT SHE LIKES TO HAVE AT THIS TIME. WILL FOLLOW UP ADMIT ORDERS.
--- NOTE | 2018-08-01 05:30 | NUR ---
MRSA NARES SPECIMEN COLLECTED . WILL SEND TO LAB.
--- NOTE | 2018-08-01 07:16 | NUR ---
PT ASLEEP. ENDORSED PT IN STABLE CONDITION AT THIS TIME TO AM NURSE FOR CONTINUITY OF CARE.
--- NOTE | 2018-08-01 07:20 | NUR ---
PATIENT WAS SLEEPING COMFORTABLY, EASILY AROUSABLE BY NAME. RESPIRATION EVEN, UNLABOR ON ROOM AIR. SKIN DRY AND WARM. NO IV ACCESS AT THIS TIME. DENIED PAIN. ADMITTED TO HAVE SUICIDAL THOUGH, HOWEVER COULD NOT VERBALIZE ANY PLAN. ADMITTED TO HAVE HALLUCINATION, BUT STATED SHE DOES NOT KNOW WHAT IT IS. PLAN OF CARE WAS DISCUSSED WITH PATIENT. BED AT LOW POSITION, SIDE RAILS UP. 1:1 SITTER ENSURED
--- NOTE | 2018-08-01 07:32 | NUR ---
SIDE RAILS PADDED FOR SEIZURE PRECAUTIONS.
--- NOTE | 2018-08-01 07:50 | NUR ---
PATIENT HAS BEEN SCREENED AND CATEGORIZED LOW NUTRITION RISK. PATIENT WILL BE SEEN WITHIN 7 DAYS OF ADMISSION. 08/07/[address]
[2018-08-01 08:00] VITALS: BP 119/56
--- NOTE | 2018-08-01 08:22 | NUR ---
PATIENT WAS FOUND THRASHING, AND SHAKING IN BED, NOT RESPONSE TO VERBAL STIMULATION, BUT PULLED AWAY TO PAINFUL STIMULI, AND GRIMACED. WILL NOTIFY
--- NOTE | 2018-08-01 08:53 | NUR ---
CONTACTED DR. JOY[facility]S GROUP REGARDING PSYCH CONSULT, EXCHANGE WILL PAGE DR. MEJIA. AWAITING FOR CALL BACK. LORETA ASSIGNED MADE AWARE.
--- NOTE | 2018-08-01 09:00 | NUR ---
PATIENT BROKE THE PLASTIC CUP IN HALF AND CRYING AND THREATENED TO CUT HERSELF. SECURITY WAS NOTIFIED. PLASTIC CUP WAS REMOVED FROM PATIENT. PATIENT WAS GIVEN DRINKS AND MAGAZINE PER REQUEST. PATIENT IS STABLE AT THIS TIME. FAMILY WAS NOTIFIED.
--- NOTE | 2018-08-01 11:41 | NUR ---
Patient's [facility] supportive employment case manager, Yves Echevarria returned phone call, after patient's father provided consent for SW to speak to her. SW informed Yves of patient's hospitalization and requested any updates on patient if possible. KM will follow up with Yves at a later time.
--- NOTE | 2018-08-01 11:54 | NUR ---
PATIENT WAS AWAKE, ALERT, TALKING AND LAUGHING WITH FAMILY. RESPIRATION EVEN, UNLABOR ON ROOM AIR. NO DISTRESS NOTED AT THIS TIME.
[2018-08-01 13:05] VITALS: BP 132/73
--- NOTE | 2018-08-01 13:10 | NUR ---
@1305: pt verbalized that she feels like starting to have a seizure episode. Vigorous shaking on right shoulder and head noted with eyes closed. positioned pt on left side, seizure pads already applied on side rails, vital signs taken. no SOB noted. pt on room air with sats at 95%. @1310: pt stopped seizing. no SOB noted. no signs of pain at this time. post seizure vital signs stable. David assigned made aware.
[2018-08-01 13:15] VITALS: BP 127/76
--- NOTE | 2018-08-01 13:30 | NUR ---
Patient eyes close, patient start shaking, informed patient that I will start an IV and I need her cooperation, patient eyes still close and she stops shaking, will continue to observe patient, sitter and family at bedside at this time
--- NOTE | 2018-08-01 13:56 | NUR ---
DR. MCGOVERN WAS MADE AWARE OF PATIENT HAD ANOTHER PSEUDOSEIZURE EPISODE FOR 10 MINUTES. OK TO CONTINUE TO MONITOR PER MD
--- NOTE | 2018-08-01 14:45 | NUR ---
PATIENT HAD ANOTHER PSEUDOSEIZURE EPISODE LASTED FOR 10 MINUTES, WAS ABLE TO ANSWER SIMPLE QUESTIONS DURING EPISODE. FAMILY AT BEDSIDE.
[2018-08-01 16:00] VITALS: BP 121/84
--- NOTE | 2018-08-01 16:00 | NUR ---
PATIENT WAS AWAKE, ALERT, LAUGHING WITH MOTHER. DENIED PAIN AT THIS TIME. NO DISTRESS NOTED
--- NOTE | 2018-08-01 16:50 | NUR ---
PATIENT COMPLAINED OF HEADACHE 4/, NORCO WAS OFFERED BUT PATIENT REFUSED
--- NOTE | 2018-08-01 17:08 | NUR ---
ENDORSEMENT GIVEN TO VONDA RAYGOZA FOR CONTINUITY OF CARE. PATIENT IS STABLE AT THIS TIME
--- NOTE | 2018-08-01 17:10 | NUR ---
ASSUMED CARE FROM LORETA. PT AAOX4, TALKING TO MOTHER AT THE BEDSIDE. NO COMPLAINTS AT THIS TIME. WILL CONTINUE TO MONITOR .
--- NOTE | 2018-08-01 18:50 | NUR ---
PT HAD ANOTHER RIGHT SHOULDER AND HEAD SHAKING EPISODE FOR ABOUT 10 MINS WHILE LYING DOWN IN BED, WITH 3 SIDE RAILS RAISED UP. PT'S MOTHER AT THE BEDSIDE. PER PT'S MOTHER JONATHAN, THAT WAS NOT A REAL SEIZURE EPISODE. PT'S VITAL SIGNS STABLE. NO SOB NOTED. PT WAS BACK TO BASELINE AGAIN AFTER 10 MINUTES, CONVERSING WITH MOTHER AT THE BEDSIDE. WILL CONTINUE TO MONITOR PT.
--- NOTE | 2018-08-01 19:00 | NUR ---
PT AAOX4. TALKING TO MOTHER AT THE BEDSIDE. NO SOB NOTED. NO COMPLAINTS MADE. ENDORSED TO REJI-RN FOR CONTINUITY OF CARE.
--- NOTE | 2018-08-01 19:01 | NUR ---
RECEIVED BEDSIDE REPORT FROM DAY SHIFT NURSE, MOM @ BEDSIDE, PT AAOX4, SITTER1:1 DUE TO SUICIDAL ATTEMPT. WITH MULTIPLE LACERATIONS OF KENNETH WRIST. NO IV ACCESS NOTED. ON OBSERVATION ONLY. PLAN OF CARE DISCUSSED WITH PT AND SEEMED PT VERBALIZED UNDERSTANDING AT THIS TIME. BED ON LOW POSITION. WITH NO OBJECTS THAT CAN BE USED TO HURT SELF. WILL CONTINUE TO MONITOR.
--- NOTE | 2018-08-01 21:45 | NUR ---
PT'S MOM STATES PT TOLD HER THAT PT HEARD MALE VOICE TO HURT HERSELF WHEN PT ATTEMPT SUICIDE AND HEARD FEMALE VOICE TODAY, NOT SURE WHAT FEMALE VOICE TOLD PT.
--- NOTE | 2018-08-01 22:45 | NUR ---
PT CRYING AND AGITATING. CHARGE NURSE, SALVADOR START IV, GOOD BLOOD RETURN NOTED.
--- NOTE | 2018-08-01 22:54 | NUR ---
GIVEN ATIVAN DR. ORDERED. PT TOLERATED WELL. WILL CONTINUE TO MONITOR.
[2018-08-02] VITALS: BP 94/49
--- NOTE | 2018-08-02 | NUR ---
PT SLEEPING. VS CHECKED. WITHIN NORMAL RANGE. 1:1 SITTER AT BEDSIDE. WILL CONTINUE TO MONITOR.
--- NOTE | 2018-08-02 02:05 | NUR ---
PT SLEEPING IN BED COMFORTABLY. NO S/S OF SOB OR ANY RESP DISTRESS NOTED. BED IN LOW POSITION.
--- NOTE | 2018-08-02 04:21 | NUR ---
PT SLEEPING IN BED COMFORTABLY. NO S/S OF SOB OR ANY RESP DISTRESS NOTED. BED IN LOW POSITION, 1:1 SITTER AT BEDSIDE.
--- NOTE | 2018-08-02 05:23 | NUR ---
PT SLEEPING IN BED COMFORTABLY. RESP EVEN AND UNLABORED. BED IN LOW POSITION. 1:1 SITTER AT BEDSIDE.
--- NOTE | 2018-08-02 05:39 | NUR ---
Still no vacancy found for pt, will nitify charge nurse if placement is found.
[2018-08-02 06:45] LABS: BASOPHILS # (AUTO) 0.1 K/uL (0.00-0.22); BASOPHILS % (AUTO) 0.7 % (0.0-2.0); EOSINOPHILS # (AUTO) 0.3 K/uL (0-0.4); EOSINOPHILS % (AUTO) 4.4 % (0.0-4.0); HEMATOCRIT 39.8 % (36-48); LYMPHOCYTES # (AUTO) 2.5 K/uL (2.5-16.5); LYMPHOCYTES % (AUTO) 34.1 % (20.5-51.1); MEAN CORPUSCULAR HEMOGLOBIN 29 pg (27-31); MEAN CORPUSCULAR HGB CONC 33 g/dL (33-37); MEAN CORPUSCULAR VOLUME 87.1 fL (80-94); MONOCYTES # (AUTO) 0.6 K/uL (0.8-1.0); MONOCYTES % (AUTO) 7.8 % (1.7-9.3); NEUTROPHILS # (AUTO) 3.9 K/uL (1.8-7.7); PLATELET COUNT (AUTO) 205 K/uL (140-450); RED BLOOD CELL COUNT(AUTO) 4.57 MIL/uL (4.20-5.40); RED CELL DISTRIBUTION WIDTH 14.3 % (11.6-13.7); WHITE BLOOD COUNT (AUTO) 7.4 K/uL (4.8-10.8)
--- NOTE | 2018-08-02 06:45 | NUR ---
TALKED TO DR. SANTILLAN PT ON OBSERVATION ONLY. STATE TO CHANGE ORDER TO IN PATIENT. ALSO INFORM TO DR. SANTILLAN THAT PT'S MOM WANT HER TO SEE PSYCHIATRIST D/T PT HEAR VOICE. AWARE OF IT.
--- NOTE | 2018-08-02 07:05 | NUR ---
ENDORSED PT TO DAY SHIFT NURSEROXANA. PT IN STABLE CONDITION.
--- NOTE | 2018-08-02 07:08 | NUR ---
RECEIVED BEDSIDE REPORT FROM BIOPHYSICS TEACHER RN. PT IS ALERT AND ABLE TO MAKE NEEDS KNOWN. STATES SHE STILL HAS THOUGHTS OF HURTING HERSELF, NO SPECIFIC PLAN VERBALIZED. STATES SHE STILL EXPERIENCES AUDITORY AND VISUAL HALLUCINATIONS AT TIMES. SELF-INFLICTED LACERATION TO B/L WRISTS, COVERED WITH TEGADERM. NO S/S DISTRESS. VSS. IV SITE PATENT AND INTACT. PT ABLE TO AMBULATE W/ STEADY GAIT. BED IN LOW POSITION & LOCKED. CALL LIGHT WITHIN REACH. SITTER AT DOOR. WILL CONTINUE TO MONITOR.
[2018-08-02 07:11] LABS: ALBUMIN 3.4 g/dL (3.4-5.0); ANION GAP 12.1 (8-16); CARBON DIOXIDE 27.4 mmol/L (21-32); CREATININE 0.9 mg/dL (0.6-1.3); MAGNESIUM 1.9 mg/dL (1.8-2.4); POTASSIUM 3.5 mmol/L (3.5-5.1); TOTAL BILIRUBIN 0.5 mg/dL (0.0-1.0)
[2018-08-02 08:00] VITALS: BP 118/46
--- NOTE | 2018-08-02 08:55 | NUR ---
FAMILY MEMBER SITTING AT BEDSIDE. SITTER AT DOOR FOR SUICIDAL PRECAUTIONS.
[2018-08-02] MEDS ORDERED: PARoxetine 10 MG TAB PO SCH (10:00)
[2018-08-02] MEDS ORDERED: ARIPiprazole 10 MG TAB PO SCH (10:00)
--- NOTE | 2018-08-02 10:38 | NUR ---
ADMINISTERED SCHEDULED MEDICATIONS. PT STATES SHE IS HAVING "SAD THOUGHTS". EXPLAINED TO PT THAT BOTH PAXIL AND ABILIFY WILL TREAT DEPRESSION.
--- NOTE | 2018-08-02 12:23 | NUR ---
Packet faxed to Uzair at [facility] for review.
--- NOTE | 2018-08-02 12:28 | NUR ---
Called Wilder May [facility], s/w Intake. No beds.
--- NOTE | 2018-08-02 12:30 | NUR ---
Called [facility], s/w House SUP Elvia. No beds.
--- NOTE | 2018-08-02 12:31 | NUR ---
Called [facility], no answer. Was forwarded to the voicemail of Raoul Patterson.
--- NOTE | 2018-08-02 12:38 | NUR ---
DISCUSSED POC WITH MOTHER AT BEDSIDE. MOTHER VERBALIZED COMPLETE UNDERSTANDING.
--- NOTE | 2018-08-02 13:51 | NUR ---
PT RESTING IN BED, NO S/S DISTRESS. MOTHER AT BEDSIDE.
--- NOTE | 2018-08-02 15:51 | NUR ---
PT SLEEPING IN BED, RESPIRATIONS EVEN AND UNLABORED. MOTHER AT BEDSIDE. 1:1 SITTER. WILL CONTINUE TO MONITOR.
[2018-08-02 16:00] VITALS: BP 121/62
--- NOTE | 2018-08-02 17:23 | NUR ---
PT ASSISTED TO THE SHOWER. MOTHER WILL HELP PT IN THE SHOWER. 1:1 SITTER MONITORING OUTSIDE.
--- NOTE | 2018-08-02 17:45 | NUR ---
PATIENT BACK IN ROOM WITH MOTHER. 1:1 SITTER CLOSELY MONITORING.
--- NOTE | 2018-08-02 19:07 | NUR ---
ENDORSED POC TO COMMERCIAL ROOFER RN. PT IN STABLE CONDITION.
--- NOTE | 2018-08-02 19:08 | NUR ---
RECEIVED REPORT FROM DAY SHIFT NURSE ROXANA-RN AT BEDSIDE. PT PARENTS ARE AT BEDSIDE. PT AOX4, ON ROOM AIR WITH LEFT WRIST #22G-SL. SELF-INFLICTED SUPERFICIAL LACERATIONS BILATERAL WRISTS AND FOREARM COVERED WITH TEGADERM AND OTHERS GENERAL MAINTENANCE ENGINEER. DISCUSSED PLAN OF CARE AND PT VERBALIZED UNDERSTANDING. NO S/S OF RESPIRATORY DISTRESS OR DISCOMFORT NOTED AT THIS TIME. BED IN LOWEST POSITION, BED BREAKS ON WITH BOTH SIDE RAILS UP AND (1:1) SITTER DUE TO SUICIDE ATTEMPT. BEDSIDE TABLE WITHIN REACH. WILL CONTINUE TO MONITOR.
[2018-08-02 20:00] VITALS: BP 113/77
--- NOTE | 2018-08-02 20:00 | NUR ---
VITAL SIGNS TAKEN AND TOLERATED WELL. NO S/S OF RESPIRATORY DISTRESS OR DISCOMFORT NOTED AT THIS TIME. WILL CONTINUE TO MONITOR.
--- NOTE | 2018-08-02 22:00 | NUR ---
PT RESTING IN BED BUSY WITH A COLORING BOOK, AND INTERACTING APPROPRIATELY. NO S/S OF RESPIRATORY DISTRESS OR DISCOMFORT NOTED AT THIS TIME. WILL CONTINUE TO MONITOR.
[2018-08-03] VITALS: BP 97/54
--- NOTE | 2018-08-03 | NUR ---
VITAL SIGNS TAKEN AND TOLERATED WELL. NO S/S OF RESPIRATORY DISTRESS OR DISCOMFORT NOTED AT THIS TIME. WILL CONTINUE TO MONITOR.
--- NOTE | 2018-08-03 02:00 | NUR ---
PT CONTINUES TO SLEEP IN BED. NO S/S OF RESPIRATORY DISTRESS OR DISCOMFORT NOTED AT THIS TIME. WILL CONTINUE TO MONITOR.
--- NOTE | 2018-08-03 03:50 | NUR ---
PT AWOKE TO USE THE TOILET. I ASKED IF SHE FELT OKAY AND SHE REPLIED THAT SHE WAS. SHE WAS ABLE TO GET UP AND AMBULATE TO THE TOILET- STABLE. WHEN SHE RETURNED SHE SAT IN BED STATING, "I'M HEARING VOICES TALKING TO ME AGAIN." I ASKED WHAT THEY WERE SAYING AND SHE STATED, "I DON'T KNOW." SHE THEN BEGAN TALKING TO ME ABOUT HOW EXCITED SHE IS ABOUT August THEN STATED "I FEEL LIKE I'M GOING TO HAVE A SEIZURE." PT THEN LAID DOWN ON HER RIGHT SIDE AND BEGAN TO TWITCH SOFTLY THEN MORE FORCEFULLY ON INTERMITTENT CYCLES THAT STARTED AT 0334 UNTIL 0338. PT NOW SLEEPING IN BED, SNORING SOFTLY. NO S/S OF RESPIRATORY DISTRESS OR DISCOMFORT NOTED AT THIS TIME. WILL CONTINUE TO MONITOR.
--- NOTE | 2018-08-03 06:00 | NUR ---
PT CONTINUES TO SLEEP IN BED. NO S/S OF RESPIRATORY DISTRESS OR DISCOMFORT NOTED AT THIS TIME. WILL CONTINUE TO MONITOR.
--- NOTE | 2018-08-03 07:26 | NUR ---
RECEIVED BEDSIDE REPORT FROM IDALMIS OZUNA. PT STABLE, SLEEPING, BUT EASILY AROUSABLE. NO SIGNS OF DISTRESS NOTED. NO REDNESS, SWELLING, OR INFLAMMATION NOTED ON IV SITE. 1:1 SITTER AT BEDSIDE. CALL [place] WITHIN REACH. BED IN LOWEST POSITION. SAFETY MEASURES IN PLACE. PLAN OF CARE REVIEWED.
--- NOTE | 2018-08-03 07:27 | NUR ---
ENDORSED PT CARE TO DAY SHIFT NURSE GEORGE PICKENS FOR CONTINUITY OF CARE.
[2018-08-03 08:00] VITALS: BP 103/66
--- NOTE | 2018-08-03 08:30 | NUR ---
DR MEJIA AT THE BEDSIDE.
[2018-08-03] MEDS ORDERED: ARIPiprazole 10 MG TAB PO SCH (09:00)
[2018-08-03] MEDS ORDERED: PARoxetine 10 MG TAB PO SCH (09:00)
[2018-08-03] MEDS: PARoxetine 10 MG TAB PO SCH (09:25)
[2018-08-03] MEDS: ARIPiprazole 10 MG TAB PO SCH (09:25)
--- NOTE | 2018-08-03 09:29 | NUR ---
ADMINISTERED SCHEDULED MEDICATIONS, PT TOLERATED WELL. FAMILY AND 1:1 SITTER AT THE BEDSIDE. NO OTHER NEEDS AT THIS TIME.
--- NOTE | 2018-08-03 11:48 | NUR ---
PT STABLE, SLEEPING, BUT EASILY AROUSABLE. NO SIGNS OF DISTRESS NOTED. PARENTS AT THE BEDSIDE.
--- NOTE | 2018-08-03 12:30 | NUR ---
PT EATING LUNCH, PARENTS AT THE BEDSIDE.
--- NOTE | 2018-08-03 13:20 | NUR ---
PT STABLE, SLEEPING, BUT EASILY AROUSABLE. CHEST RISE AND FALL VISIBLY NOTED. MOTHER AT THE BEDSIDE.
[2018-08-03] MEDS ORDERED: ABI10 PO (14:29)
[2018-08-03] MEDS ORDERED: PAX10 PO (14:29)
--- NOTE | 2018-08-03 15:50 | NUR ---
VITAL SIGNS TAKEN, PT STABLE. NO OTHER NEEDS AT THIS TIME. WILL CONTINUE TO MONITOR.
[2018-08-03 16:00] VITALS: BP 108/62
--- NOTE | 2018-08-03 17:30 | NUR ---
PT AMBULATING IN THE HALLWAY WITH STEADY GAIT, ASSISTED BY SITTER.
--- NOTE | 2018-08-03 19:25 | NUR ---
RECD. RESTING IN BED, AWAKE, A/OX4. RESPIRATION EVEN AND UNLABORED. IV SALINE LOCK AT THE LEFT WRIST G22, PATENT AND INTACT. WITH SELF INFLICTED LACERATION BILATERAL FOREARMS/WRISTS. STATED SHE STILL HEARS VOICES OCCASIONALLY. PLAN OF CARE FOR THE SHIFT DISCUSSED. VERBALIZED UNDERSTANDING. DENIES PAIN 0/10. WILL CONTINUE TO MONITOR AND ENSURE SAFETY BEING THE NURSE-SITTER FOR THIS SHIFT.
--- NOTE | 2018-08-03 19:25 | NUR ---
ENDORSED PT TO IDALMIS STEWART FOR CONTINUITY OF CARE. PT STABLE.
--- NOTE | 2018-08-03 20:30 | NUR ---
ATE A CHOCOLATE PUDDING. REMAIN JUST SITTING QUIETLY, CLOSED EYES, THEN OPENS AGAIN. OCCASIONALLY MOUTH MOVING BUT NO SOUNDS COME OUT. CLOSED EYES AGAIN THEN WAKES UP. NO AGITATION NOTED.
--- NOTE | 2018-08-03 21:00 | NUR ---
AMBULATED TO TO VOID, BACK TO BED AFTER VOIDING.
--- NOTE | 2018-08-03 22:00 | NUR ---
SLEEPING COMFORTABLY IN BED.
--- NOTE | 2018-08-03 22:54 | NUR ---
At thie time there are no beds available for placement, will continue to make calls , Yadira RAYGOZA made aware. Addendum: 08/03/18 at 2300 by Ronaldo Randle CM At this
--- NOTE | 2018-08-03 23:21 | NUR ---
WOKE UP FOR A FEW MINUTES THEN WENT BACK TO SLEEP.
[2018-08-04] VITALS: BP 103/70
--- NOTE | 2018-08-04 00:08 | NUR ---
STILL SLEEPING COMFORTABLY, VS STABLE.
--- NOTE | 2018-08-04 02:45 | NUR ---
WOKE UP FOR A FEW MINUTES THEN WENT BACK TO SLEEP.
--- NOTE | 2018-08-04 04:15 | NUR ---
SLEEPING COMFORTABLY IN BED.
--- NOTE | 2018-08-04 06:00 | NUR ---
WOKE UP, SMILES WHEN GREETED GOOD MORNING BUT WENT BACK TO SLEEP AGAIN.
--- NOTE | 2018-08-04 06:21 | NUR ---
STILL SLEEPING COMFORTABLY, NEW SITTER MONITORING PATIENT. CONDITION REMAIN STABLE. NO SUICIDAL IDEATION. NO SEIZURE NOTED DURING SHIFT. ENDORSED TO IDALMIS HAYNES FOR CONTINUITY OF CARE.
--- NOTE | 2018-08-04 07:00 | NUR ---
RECEIVED REPORT FROM MECHANICAL MAINTENANCE INSTRUCTOR NURSE IVY FOR CONTINUITY OF CARE. PT IN STABLE CONDITION. RESPIRATIONS EVEN AND UNLABORED. PT SLEEPING AT THIS TIME. IV INTACT AND PATENT, SALINE LOCK. SAFETY MEASURES IN PLACE. BED IN LOW POSITION. 1:1 SITTER AT BEDSIDE. WILL CONTINUE TO MONITOR.
[2018-08-04 08:00] VITALS: BP 112/69
--- NOTE | 2018-08-04 08:01 | NUR ---
PT SLEEPING AT THIS TIME IN STABLE CONDITION. RESPIRATIONS EVEN AND UNLABORED. BED IN LOW POSITION. SITTER 1:1 AT BEDSIDE. WILL CONTINUE TO MONITOR.
--- NOTE | 2018-08-04 09:09 | NUR ---
DAD ARRIVED, PT WAKING UP AFTER SLEEPING. PT IN STABLE CONDITION. BED IN LOW POSITION. WILL CONTINUE TO MONITOR.
--- NOTE | 2018-08-04 09:49 | NUR ---
AWAKE AND EATING BREAKFAST AT THIS TIME IN STABLE CONDITION. FAMILY AT BEDSIDE. SITTER 1:1. BED IN LOW POSITION. WILL CONTINUE TO MONITOR.
[2018-08-04] MEDS: ARIPiprazole 10 MG TAB PO SCH (09:54)
[2018-08-04] MEDS: PARoxetine 10 MG TAB PO SCH (09:54)
--- NOTE | 2018-08-04 10:05 | NUR ---
FAMILY MEMBER (DAD) LEFT AND PT IS SITTING QUIETLY IN BED. THEN PT LAID DOWN ON THE BED AND STARTED TO SLOWLY TWITCH BODY IF HAVING A MILD SEIZURE. PT WAS ASKED IF SHE WAS OKAY "NO" PT WAS ASKED IF SHE LIKED [employer]FE[employer] CR[employer] "YES" PT SMILED AND PT WAS ASKED IF SHE CAN TELL THE NURSE WHY SHE LIKED [employer] CR[employer]. PT SAT UP WITH A SMILE AND TALKED ABOUT [employer] IN STABLE CONDITION. NO TWITCHING AT THIS TIME. BED IN LOW POSITION. SITTER 1:1. WILL CONTINUE TO MONITOR.
--- NOTE | 2018-08-04 11:20 | NUR ---
PT USING THE RESTROOM AT THIS TIME FOR BOWEL MOVEMENT. WILL CONTINUE TO MONITOR.
--- NOTE | 2018-08-04 12:05 | NUR ---
EATING LUNCH AT THIS TIME. PT IN STABLE CONDITION. BED IN LOW POSITION. SITTER 1:1. WILL CONTINUE TO MONITOR.
--- NOTE | 2018-08-04 13:53 | NUR ---
PT SITTING IN BED WORKING ON A WORD SEARCH PUZZLE AT THIS TIME. PT IN STABLE CONDITION. BED IN LOW POSITION. SITTER 1:1. WILL CONTINUE TO MONITOR.
--- NOTE | 2018-08-04 13:56 | NUR ---
FAMILY AT BEDSIDE AT THIS TIME (MOM AND DAD). PT IN STABLE CONDITION. BED IN LOW POSITION. WILL CONTINUE TO MONITOR.
--- NOTE | 2018-08-04 15:13 | NUR ---
SITTING IN THE CHAIR TALKING ON THE PHONE WITH FAMILY IN STABLE CONDITION. FAMILY AT BEDSIDE (MOM). WILL CONTINUE TO MONITOR. WILL CONTINUE TO MONITOR.
--- NOTE | 2018-08-04 15:56 | NUR ---
PSEUDOSEIZURE LASTING 4 MINUTES. [id number]. PT IN STABLE CONDITION. RESPIRATIONS EVEN AND UNLABORED. PT SLEEPING AT THIS TIME. VITALS: B/P 115/69 P 115 T 96.3 O2 98% R 18. BED IN LOW POSITION. SITTER 1:1. WILL CONTINUE TO MONITOR.
[2018-08-04 16:00] VITALS: BP 115/69
--- NOTE | 2018-08-04 16:31 | NUR ---
PT AWAKE AND TALKING WITH FAMILY MEMBER (MOM) IN STABLE CONDITION AT THIS TIME. RESPIRATIONS EVEN AND UNLABORED. BED IN LOW POSITION. SITTER 1:1. WILL CONTINUE TO MONITOR.
--- NOTE | 2018-08-04 18:13 | NUR ---
PT LYING IN BED IN STABLE CONDITION, TALKING TO FAMILY MEMBER (MOM). BED IN LOW POSITION. SITTER 1:1. WILL CONTINUE TO MONITOR.
--- NOTE | 2018-08-04 18:36 | NUR ---
GAVE REPORT TO CLINICAL SOCIOLOGIST NURSE TERRY FOR CONTINUITY OF CARE. PT IN STABLE CONDITION.
--- NOTE | 2018-08-04 18:37 | NUR ---
RECD. RESTING IN BED, AWAKE, A/OX4. RESPIRATION EVEN AND UNLABORED. IV SALINE LOCK AT THE LEFT FOREARM G22, PATENT AND INTACT. WHEN INQUIRED IF SHE STILL HEAR VOICES STATED, "I HAD ONE TODAY." BUT DID NOT UNDERSTAND WHAT THE VOICE IS TELLING HER, CLAIMED IT IS A MALE VOICE. ON SOME OCCASION WHILE IN BED IMITATES THE SOUND OF BIRDS. PLAN OF CARE FOR THE SHIFT DISCUSSED. VERBALIZED UNDERSTANDING. DENIES PAIN 0/10. WILL CONTINUE TO MONITOR BEING THE NURSE-SITTER FOR THIS SHIFT.
--- NOTE | 2018-08-04 19:46 | NUR ---
SITTING ON BED DOING CROSS WORD PUZZLE.
--- NOTE | 2018-08-04 21:00 | NUR ---
WANTS TO HAVE A SHOWER. ACCOMPANIED TO SHOWER ROOM AND TAKE A SHOWER.
--- NOTE | 2018-08-04 21:20 | NUR ---
BACK ROOM, SAFETY MAINTAINED.
--- NOTE | 2018-08-04 22:00 | NUR ---
DISCUSSED AND REVIEWED PT CARE PLAN WITH TERRY GARCIA LVN
--- NOTE | 2018-08-04 22:18 | NUR ---
IN BED RESTING, EATING CHIPS BROUGHT BY MOTHER EARLIER TODAY.
--- NOTE | 2018-08-04 23:25 | NUR ---
IV INFILTRATED, NEW IV LINE INSERTED BY LUZ HAYNES AT THE RIGHT WRIST G 24.
[2018-08-05] VITALS: BP 117/65
--- NOTE | 2018-08-05 | NUR ---
SLEEPING COMFORTABLY IN BED.
--- NOTE | 2018-08-05 02:35 | NUR ---
WOKE UP FOR A WHILE STATED SHE FEELS WARM. REMOVE EXTRA BLANKETS. WENT BACK TO SLEEP.
--- NOTE | 2018-08-05 04:00 | NUR ---
WOKE UP FOR A FEW MINUTES THEN WENT BACK TO SLEEP.
--- NOTE | 2018-08-05 06:43 | NUR ---
CONDITION REMAIN STABLE. NO UNUSUAL BEHAVIOR NOTED DURING SHIFT. NEW SITTER MONITORING PATIENT NEAR DOOR. WILL ENDORSED TO AM NURSE FOR CONTINUITY OF CARE.
--- NOTE | 2018-08-05 07:15 | NUR ---
RECEIVED REPORT FROM SOURCING COORDINATOR NURSE TERRY FOR CONTINUITY OF CARE. PT IN STABLE CONDITION. RESPIRATIONS EVEN AND UNLABORED. IV INTACT AND PATENT. SAFETY MEASURES IN PLACE. BED IN LOW POSITION. SITTER 1:1 AT BEDSIDE. WILL CONTINUE TO MONITOR.
[2018-08-05 08:00] VITALS: BP 107/71
--- NOTE | 2018-08-05 09:49 | NUR ---
GAVE ORDERED DUE MEDICATIONS. PT TOLERATED WELL. SITTER 1:1 AT BEDSIDE. BED IN LOW POSITION. WILL CONTINUE TO MONITOR.
[2018-08-05] MEDS: PARoxetine 10 MG TAB PO SCH (09:55)
[2018-08-05] MEDS: ARIPiprazole 10 MG TAB PO SCH (09:55)
--- NOTE | 2018-08-05 10:53 | NUR ---
S/W Kristal RAYGOZA taking care of patient. Will fax new [phone] hold for placement
--- NOTE | 2018-08-05 11:09 | NUR ---
SW followed up with [facility]. Spoke to Dory. Per Dory, [facility], [facility], [facility], [facility], and [facility] all have no beds available. SW/CM will follow up as needed.
--- NOTE | 2018-08-05 11:10 | NUR ---
[facility] s/w Radha, patient is denied because she is unable to be safely managed [facility] s/w Elvia no beds at this time. They are full [facility] s/w Beatris, expecting discharges, packet faxed Wilder [facility] s/w Felix no adult beds only child/adolescent [facility] s/w Lori, packet fax for review [facility] s/w Amparo no beds
--- NOTE | 2018-08-05 11:27 | NUR ---
FAXED [phone] HOLD TO FLACO AT [facility] .
--- NOTE | 2018-08-05 12:26 | NUR ---
EATING LUNCH IN STABLE CONDITION. CALL LIGHT AT BEDSIDE. BED IN LOW POSITION. WILL CONTINUE TO MONITOR.
--- NOTE | 2018-08-05 13:30 | NUR ---
FAMILY AT BEDSIDE ASKING FOR TRANSFER UPDATE. ALL QUESTIONS ANSWERED AT THIS TIME. PT IN STABLE CONDITION. SITTER 1:1 AT BEDSIDE. BE IN LOW POSITION. WILL CONTINUE TO MONITOR.
--- NOTE | 2018-08-05 15:06 | NUR ---
PT SITTING IN CHAIR AT THIS TIME. FAMILY AT BEDSIDE AT THIS TIME. PT IN STABLE CONDITION. SITTER 1:1. WILL CONTINUE TO MONITOR.
[2018-08-05 16:00] VITALS: BP 111/63
--- NOTE | 2018-08-05 17:25 | NUR ---
PT EATING AT THIS TIME. PT IN STABLE CONDITION. FAMILY AT BEDSIDE (MOM). WILL CONTINUE TO MONITOR. BED IN LOW POSITION. CALL LIGHT AT BEDSIDE. Addendum: 08/05/18 at 9154 by Kristal Pardo RN NOTE FOR [phone]
--- NOTE | 2018-08-05 17:25 | NUR ---
PT C/O HAVING BAD THOUGHTS OF CUTTING HERSELF AND FEELING SAD. PT MENTIONED NOT WANTING TO GO HOME HEARD VOICES IN HER ROOM. WALKED AROUND MST IN STABLE CONDITION. RESPIRATIONS EVEN AND UNLABORED. PT STATED FEELING A LITTLE BETTER AFTER THE WALK. PT ADVISED IF FEELING SAD ASK SITTER TO TAKE A WALK. WILL CONTINUE TO MONITOR.
--- NOTE | 2018-08-05 19:15 | NUR ---
GAVE REPORT TO CPC CODER NURSE KEDAR FOR CONTINUITY OF CARE. PT IN STABLE CONDITION.
--- NOTE | 2018-08-05 19:16 | NUR ---
RECEIVED BEDSIDE REPORT FROM MIRIAM RAYGOZA. PT IS AAO X4 ON ROOM AIR. RESPIRATIONS ARE EQUAL AND UNLABORED. C/C SUICIDAL IDEATION. PT WITH SUPERFICIAL CUTS TO BOTH WRIST. IV ON R WRIST 22G SL. ON 5150 HOLD WITH SITTER. MOTHER AND FATHER ARE AT BEDSIDE. DR CRUZJACKIE HERE TO SEE PT. ALL SAFETY MEASURES ARE IN PLACE. WILL CONTINUE TO MONITOR.
--- NOTE | 2018-08-05 20:10 | NUR ---
PER DR JACKIE CABRALES PT TO BE D/C. CALLED TEACHER PRIVATE DR.KIM FIGUEROA TO D/C. PT S VITAL SIGNS ARE STABLE. BRITANY FREGOSO WILL PREPARE D/C PAPERS. Addendum: 08/05/18 at 2131 by Yolanda Gustafson RN VITAL SIGNS: 111/75 105 HR 98% RA RR 16 NO PAIN 98.3
--- NOTE | 2018-08-05 20:40 | NUR ---
GAVE D/C INSTRUCTIONS PT WITH 2 NEW PRESCRIPTIONS EXPLAINED SIDE EFFECTS. PER PT HAS TAKEN THESE MEDS BEFORE. ALL PAPERS WERE SIGN. D/C PHOTO TAKEN. IV REMOVED. IV CATH IS INTACT. SECURITY BROUGHT PATIENT BELONGINGS. PT AMBULATED OUT OF UNIT WITH BOTH PARENTS IN STABLE CONDITION.
== END 2018-08-05 20:40 | disposition home or self-care (01) | DRG 384 ==
LOC: MED 21:23 → MTU 08-01 04:18 → UNDOADMIN 08-01 04:18 → UNDOADMOB 08-01 04:18 → MTU 08-01 04:18 → OBSVTOIN 08-02 07:03
PROVIDERS: ADMIT Internal Medicine Pulmonary Disease; ATTEND Internal Medicine Pulmonary Disease
DX: S61.512A Laceration without foreign body of left wrist, initial encounter (principal); E66.01 Morbid (severe) obesity due to excess calories; F32.9 Major depressive disorder, single episode, unspecified; X78.9XXA Intentional self-harm by unspecified sharp object, initial encounter; F41.9 Anxiety disorder, unspecified; F70 Mild intellectual disabilities; F84.0 Autistic disorder; J45.909 Unspecified asthma, uncomplicated; G40.89 Other seizures; S61.511A Laceration without foreign body of right wrist, initial encounter; S51.812A Laceration without foreign body of left forearm, initial encounter; S51.811A Laceration without foreign body of right forearm, initial encounter; Z79.899 Other long term (current) drug therapy; Y93.89 Activity, other specified; Y92.89 Other specified places as the place of occurrence of the external cause; Y99.8 Other external cause status
CPT/HCPCS: 99285; G0378; 36415; 80053; 80305; 83735; 85025; 87081; 93005; C1758; G0480; G0482; J2060

== ENCOUNTER 2018-08-20 17:40 | Inpatient (IN) | payer OTHER ==
[~2018-08-20] VITALS: Ht 170.2 cm; Wt 129.3 kg
[~2018-08-20 17:40] MED LIST changes: +ABI10 PO; -CHOL400T PO; +PAX10 PO; -TOP100 PO
[2018-08-20 17:45] VITALS: BP 155/93
--- NOTE | 2018-08-20 17:55 | NUR ---
PATIENT AMBULATED TO BED 1
[2018-08-20] MEDS ORDERED: NACL 0.9% 1,000 ML IV ONE (18:03)
--- NOTE | 2018-08-20 18:04 | NUR ---
PT EVALUATED BY DR. SHAH. CHARGE NURSE MADE AWARE THAT PT IS +SI WITH PLAN. +VISUAL AND AUDITORY HALLUCINATIONS. DENIES HI. PT CALM AND COOPERATIVE AT THIS TIME. PT IN GOWN AND ON MONITOR. HR 135, EKG IN PROGRESS. PT DENIES CP/SOB.
--- NOTE | 2018-08-20 18:12 | NUR ---
PT BIB MOM C/O GENERALIZED WEAKNESS, NAUSEA, VOMITING, DIARRHEA X 4 DAYS. VOMITING X 3 TODAY, DIARRHEA X 2 TODAY. DENIES BLOOD IN STOOL OR EMESIS. +PAINFUL URINATION X 4 DAYS. PT DIAGNOSED WITH UTI AT [facility] 4 DAYS AGO. PT ALSO "HEARING VOICES" "THEY ARE TELLING ME TO KILL MYSELF." +SI WITH PLAN TO "CUT." +VISUAL HALLUCINATIONS "A FEMALE AND MALE ARE WATCHING." PT CALM AND COOPERATIVE. MOTHER WITH PATIENT. VSS. HX: AUTISM, PSEUDO SEIZURES, DEPRESSION RX: PAROXETINE, ABILIFY, KEFLEX.
--- NOTE | 2018-08-20 18:18 | NUR ---
[facility] CALLED TO EVALUATE PT, ADVISED THEY WILL BE SENDING A OFFICER TO EVALUATE.
[2018-08-20 18:40] LABS: BASOPHILS % (AUTO) 0.4 % (0.0-2.0); EOSINOPHILS # (AUTO) 0.1 K/uL (0-0.4); EOSINOPHILS % (AUTO) 0.5 % (0.0-4.0); HEMATOCRIT 40.7 % (36-48); HEMOGLOBIN 13.2 g/dL (12.0-16.0); LYMPHOCYTES # (AUTO) 2.4 K/uL (2.5-16.5); LYMPHOCYTES % (AUTO) 20.3 % (20.5-51.1); MEAN CORPUSCULAR HEMOGLOBIN 28 pg (27-31); MEAN CORPUSCULAR HGB CONC 33 g/dL (33-37); MEAN CORPUSCULAR VOLUME 86.5 fL (80-94); MONOCYTES # (AUTO) 0.9 K/uL (0.8-1.0); MONOCYTES % (AUTO) 7.7 % (1.7-9.3); NEUTROPHILS # (AUTO) 8.4 K/uL (1.8-7.7); NEUTROPHILS % (AUTO) 71.1 % (42.2-75.2); PLATELET COUNT (AUTO) 305 K/uL (140-450); RED BLOOD CELL COUNT(AUTO) 4.71 MIL/uL (4.20-5.40); RED CELL DISTRIBUTION WIDTH 14.9 % (11.6-13.7); WHITE BLOOD COUNT (AUTO) 11.8 K/uL (4.8-10.8)
[2018-08-20] MEDS ORDERED: LOPERAMIDE 2 MG CAP PO ONE (18:45)
[2018-08-20] MEDS ORDERED: ONDANSETRON 4 MG/2 ML VIAL IVP ONE (18:45)
--- NOTE | 2018-08-20 18:46 | NUR ---
EMT SHEY ASSISTING PT TO RESTROOM TO PROVIDE URINE SAMPLE. PT MOTHER AT [facility]
[2018-08-20] MEDS ORDERED: NACL 0.9% 2,000 ML IV SCH (18:50)
--- NOTE | 2018-08-20 18:56 | NUR ---
[place] [employer] AT BEDSIDE
--- NOTE | 2018-08-20 18:58 | NUR ---
PT TACHYCARDIC AT 137, ER NOTIFIED, 2L BOLUS NS STARTED
--- NOTE | 2018-08-20 19:00 | NUR ---
[place] [employer] AT BEDSIDE TO EVALUATE PT.
--- NOTE | 2018-08-20 19:05 | NUR ---
RECEIEVED REPORT FROM IDALMIS CELAYA. [facility] AT THIS TIME.
[2018-08-20 19:11] LABS: ALBUMIN 3.5 g/dL (3.4-5.0); ASPARTATE AMINOTRANSFERASE 19 U/L (15-37); CARBON DIOXIDE 25.5 mmol/L (21-32); CHLORIDE 101 mmol/L (98-107); GFR ARICAN-AMERICAN 86 mL/min (>90); GLUCOSE 123 mg/dL (74-106); POTASSIUM 3.5 mmol/L (3.5-5.1); SODIUM SERUM 139 mmol/L (136-145); TOTAL BILIRUBIN 0.3 mg/dL (0.0-1.0); UREA NITROGEN, BLOOD 4 mg/dL (7-18)
[2018-08-20 19:19] LABS: MAGNESIUM 1.7 mg/dL (1.8-2.4)
--- NOTE | 2018-08-20 19:26 | NUR ---
TELEPSYCH CONSULT REQUEST INITIATED
[2018-08-20 19:35] LABS: ACETONE, SERUM NEGATIVE (NEGATIVE)
[2018-08-20 19:45] LABS: APPEARANCE,URINE CLEAR (CLEAR); BILIRUBIN,URINE NEGATIVE (NEGATIVE); BLOOD, URINE TRACE-I (NEGATIVE); COLOR,URINE YELLOW (YELLOW); LEUKOCYTE ESTERASE ,URINE 1+ (NEGATIVE); NITRITE, URINE NEGATIVE (NEGATIVE); UGLUCOSE NEGATIVE (NEGATIVE)
[2018-08-20 19:49] LABS: BARBITURATE, URINE NEG. ng/ml (NEG <=200); BENZODIAZEPINE, URINE NEG. ng/mL (NEG <=200); CANNABINOID, URINE NEG. ng/mL (NEG <=50); COCAINE, URINE NEG. ng/mL (NEG <=300); OPIATE, URINE NEG. ng/mL (NEG <=2000); PHENCYCLIDINE SCREEN,URINE NEG. ng/mL (NEG <=25)
[2018-08-20 20:02] LABS: RBC,URINE 0 /HPF (0-5)
--- NOTE | 2018-08-20 20:15 | NUR ---
PT LYING IN BED QUIETLY. MOTHER AT BEDSIDE. VSS. EMT 1:1 MONITORING. BED IN LOWEST POSITION. SEIZURE PRECAUTIONS IN PLACE. WILL CONTINUE TO MONITOR.
--- NOTE | 2018-08-20 21:21 | NUR ---
DR. CHAVIRA CALLED AND SPEAKING WITH PRIMARY NURSE CHAS AT THIS TIME.
--- NOTE | 2018-08-20 21:25 | NUR ---
SPOKE WITH DR. CHAVIRA, TELEPSYCH, TO PROVIDE INFORMATION REGARDING CURRENT PT STATUS.
--- NOTE | 2018-08-20 21:35 | NUR ---
SECURITY AT BEDSIDE AND BELONGINGS SENT WITH SECURITY AND WILL BE STORED WHILE PATIENT WAITING FOR PLACEMENT.
--- NOTE | 2018-08-20 22:05 | NUR ---
PT AWAKE AND SITTING UPRIGHT IN BED. FATHER AT BEDSIDE. VSS AT THIS TIME. EMT 1:[address] PADS IN PL[address]. WILL CONTINUE TO MONITOR.
[2018-08-20] MEDS ORDERED: CEPH250C16 PO (22:48)
[2018-08-20] MEDS ORDERED: ARIPiprazole 10 MG TAB PO ONE (23:00)
[2018-08-20] MEDS ORDERED: PARoxetine 20 MG TAB PO ONE (23:00)
[2018-08-20] MEDS ORDERED: MAG SULF 2000 MG/WATER PREMIX 50 ML IV ONE (23:00)
[2018-08-20] MEDS ORDERED: CEPHALEXIN 500 MG CAP PO ONE (23:00)
[2018-08-20] MEDS ORDERED: ALBUTEROL 0.083% 2.5 MG/3 ML NEBU INH PRN (23:20)
[2018-08-20] MEDS ORDERED: ACETAMINOPHEN 325 MG TAB PO PRN (23:20)
--- NOTE | 2018-08-20 23:50 | NUR ---
Patient will be admitted to care of Dr. Cortés. Admited to [facility]. Will go to room 109B. Belongings list completed. VSS at time of transport. Report to IDALMIS Hammond. Endorsed to Stephany to administer paxil and abilify. Transfer of care at this time.
--- NOTE | 2018-08-20 23:53 | NUR ---
RECEIVED FROM ER PER WHEELCHAIR AWAKE AND ALERT. NO SOB. DENIES PAIN AT THIS TIME. CALL LIGHT WITH IN REACH . ROM X 4. CLEAR SPEECH. ABLE TO VERBALIZE NEEDS WELL IN [place]. SKIN INTACT WITH OLD SCARS ON BOTH WRISTS FROM ATTEMPTED SUICIDE IN THE PAST. PT. PROVIDED WITH A SANDWICH RT COMPLAINED THAT SHE IS VERY HUNGRY. NO FURTHER COMPLAINTS DONE. DX. OF 5150. BED RAILS PADDED FOR HX. OF PSEUDO SEIZURES. IVF SITE TO RIGHT HAND #22 INTACT AND NEW. GOOD BLOOD RETURN. SKIN INTACT. OBESE FEMALE PT. BED ALARM ON.
--- NOTE | 2018-08-21 00:14 | NUR ---
ASSISTED TO RESTROOM SITUATED INSIDE ROOM TO URINATE. NOTED ROM X 4. ABLE TO STAND UP INDEPENDENTLY BY HERSELF. ABLE TO VERBALIZE AND COMMUNICATE WITH CARE GIVERS WELL. ABILIFY AND PAXIL P.O. ORDERED IN ER ADMINISTERED. TOLERATED WELL.
[2018-08-21 00:38] VITALS: BP 121/80
--- NOTE | 2018-08-21 01:04 | NUR ---
PT. SLEEPING AT THIS TIME. WITH SITTER 1:1 . BED SIDE RAILS PADDED FOR SEIZURE PRECAUTIONS.
--- NOTE | 2018-08-21 03:50 | NUR ---
SLEEPING WELL THIS SHIFT. SITTER 1:1. NO RESTLESSNESS OR ANY UNTOWARD INCIDENT.
--- NOTE | 2018-08-21 05:50 | NUR ---
SLEEPING WELL THIS SHIFT. SITTER 1:1. NO COMPLAINTS DONE AFTER EATING HER SNACK.
--- NOTE | 2018-08-21 07:18 | NUR ---
ENDORSED TO T HE NEXT RN FOR CONTINUITY OF CARE. SLEPT WELL THIS SHIFT. PRESENTLY AWAKE AND ALERT. SITTER 1:1.
--- NOTE | 2018-08-21 07:19 | NUR ---
RECEIVED BEDSIDE REPORT FROM REHABILITATION WORKER NURSE. PATIENT IS AWAKE, ALERT, AND ORIENTEDX4. NO SIGNS OF DISTRESS ON RA. SKIN IS INTACT. IV ON R HAND 22G SL. CLEAN, DRY AND INTACT. PATIENT IS AMBULATORY, CONTINENT. ABLE TO MAKE NEEDS KNOWN. PATIENT ON 5150 HOLD. 1:1 SITTER AT BEDSIDE. WILL CONTINUE TO MONITOR THE PATIENT
[2018-08-21 08:00] VITALS: BP 151/85
--- NOTE | 2018-08-21 09:10 | NUR ---
PATIENT HAS BEEN SCREENED AND CATEGORIZED HIGH NUTRITION RISK. PATIENT WILL BE SEEN WITHIN 1-2 DAYS OF ADMISSION. 08/20/18-08/22/[address]
[2018-08-21] MEDS: ARIPiprazole 10 MG TAB PO SCH (09:37)
[2018-08-21] MEDS: CEPHALEXIN 500 MG CAP PO SCH ×2 (09:37→21:21)
[2018-08-21] MEDS: PARoxetine 20 MG TAB PO SCH (09:37)
--- NOTE | 2018-08-21 09:40 | NUR ---
ADMINISTERED MEDS. EDUCATED ON MEDS. PATIENT VERBALIZED UNDERSTANDING AND TOLERATED WELL. WILL CONTINUE TO MONITOR. 1:1 SITTER AT BEDSIDE
[2018-08-21] MEDS ORDERED: ZOLPIDEM 5 MG TAB PO PRN (10:55)
--- NOTE | 2018-08-21 11:40 | NUR ---
1:1 SITTER AT BEDSIDE. PATIENT IS SLEEPING. NO SIGNS OF DISTRESS
--- NOTE | 2018-08-21 11:53 | NUR ---
CALLED DR JOY'S OFFICE [phone], NOTIFIED THEM OF NEW CONSULT, HE WILL NOTIFY ONCALL DOCTOR, UNSURE WHO IT IS AT THIS TIME, FACE SHEET FAXED TO [phone].
--- NOTE | 2018-08-21 12:43 | NUR ---
PATIENT IS SLEEPING. NO SIGNS OF DISTRESS. WILL CONTINUE TO MONITOR. 1:1 SITTER AT BEDSIDE
--- NOTE | 2018-08-21 14:18 | NUR ---
08/21/18 RD INITIAL ASSESSMENT COMPLETED PLEASE REFER TO NUTRITION ASSESSMENT UNDER CARE ACTIVITY FOR ESTIMATED NUTRITIONAL NEEDS. 1. CONTINUE REGULAR DIET TOLERATED 2. ENCOURAGED PT TO INCREASE VEGETABLE INTAKE 3. ENCOURAGED PT TO DECREASE INTAKE OF SUGAR SWEETENED BEVERAGES 4. RD TO FOLLOW-UP 5-7 DAYS, LOW RISK CECE CHEN, RD
--- NOTE | 2018-08-21 14:29 | NUR ---
PATIENT IN THE RESTROOM. FAMILY AT BEDSIDE. 1:1 SITTER AT BEDSIDE. WILL CONTINUE TO MONITOR THE PATIENT
--- NOTE | 2018-08-21 15:42 | NUR ---
FAMILY AT BEDSIDE. PER MOM PATIENT HAS A SMALL PSEUDOSEIZURE. PATIENT SHOWS NO SIGNS OF DISTRESS. WILL CONTINUE TO MONITOR THE PATIENT
[2018-08-21 15:50] VITALS: BP 125/76
--- NOTE | 2018-08-21 17:45 | NUR ---
PATIENT NOT EATING. ENCOURAGED PATIENT TO EAT AT THIS TIME. PATIENT IS EATING. MOM AT BEDSIDE. 1:1 SITTER AT BEDSIDE. WILL CONTINUE TO MONITOR
--- NOTE | 2018-08-21 19:00 | NUR ---
GAVE BEDSIDE REPORT TO ADMINISTRATIVE VOLUNTEER NURSE.PATIENT ENDORSED IN STABLE CONDITION
--- NOTE | 2018-08-21 19:01 | NUR ---
RECD. RESTING IN BED, AWAKE, A/OX4. RESPIRATION EVEN AND UNLABORED. IV SALINE LOCK AT THE RIGHT HAND G22, PATENT AND INTACT. SEEMS DROWSY AND DEPRESSED. PLAN OF CARE FOR THE SHIFT DISCUSSED WITH PATIENT AND MOTHER. MOTHER IS WORRIED BY DAUGHTER WANTS TO VOID BUT UNABLE TO VOID WHEN PATIENT GOES TO THE BR. CRANBERRY JUICES AND WATER GIVEN, AND WILL MONITOR VOIDING AFTER DRINKING JUICE AND WATER. ON 1:1 SITTER MONITORING PATIENT NEAR DOOR. DENIES PAIN 0/10.
[2018-08-21 20:00] VITALS: BP 122/78
--- NOTE | 2018-08-21 20:30 | NUR ---
MOTHER AND FATHER AT THE BEDSIDE. PATIENT IS RESTING IN BED, WANTS A SLEEPING PILL, WILL MEDICATE ORDERED.
--- NOTE | 2018-08-21 21:20 | NUR ---
MEDICATED WITH AMBIEN ORDERED. FATHER AND MOTHER LEFT.
--- NOTE | 2018-08-21 21:30 | NUR ---
Patient's Plan of Care was discussed and reviewed with DIRECTOR OF HEALTHCARE SYSTEMS: TERRY GARCIA
--- NOTE | 2018-08-21 22:20 | NUR ---
SLEEPING COMFORTABLY IN BED.
[2018-08-22] VITALS: BP 126/78
--- NOTE | 2018-08-22 | NUR ---
SLEEPING COMFORTABLY IN BED, SITTER MONITORING PATIENT NEAR DOOR.
--- NOTE | 2018-08-22 05:44 | NUR ---
Follow up calls were made through out shift. Still no bed vacancies at this time. Called the following contracted [facility] facilities regarding bed placement. [facility], spoke with Pat. [facility], spoke with Mehnaz, they wont have bed vacancies until Sunday. [facility], spoke with Poly[facility], spoke with Jacquelyn. [facility], spoke with Nabil. [facility], spoke with Minh. NOC shift will endorse to on comming shift to follow up with bed placement.
--- NOTE | 2018-08-22 06:45 | NUR ---
ABLE TO SLEEP WELL. CONDITION REMAIN STABLE. NO AGITATION, NO SUICIDAL IDEATION NOTED DURING SHIFT. WILL ENDORSE TO AM NURSE FOR CONTINUITY FO CARE.
--- NOTE | 2018-08-22 07:25 | NUR ---
Received bedside report from pm nurse Sana. Pt in bed interacting appropriately with RT. Respirations even & nonlabored. Sitter at bedside. Will cont to monitor. Addendum: 08/22/18 at 0948 by Jazmín Salinas RN Addendum: Right hand IV saline lock patent & asymptomatic.
--- NOTE | 2018-08-22 07:45 | NUR ---
Served breakfast tray. Pt in bed, awake, says "thank you" but wants to eat later. Pt with intermittent non-productive cough. Sitter remains at bedside.
[2018-08-22 08:00] VITALS: BP 123/84
--- NOTE | 2018-08-22 08:15 | NUR ---
Pt lying quietly in bed, awake, no signs of distress. Asked pt if she's ready to eat her breakfast. Pt sat up & only drank 1 box of orange juice then went back to bed. Asked pt if she is still hearing voices. Pt replies "yes, they're telling me to hurt myself." Asked pt if they are saying anything in particular, pt says "no." Pt also verbalized "i don't feel good about it. It upsets me." Active listening, validation, & reassurance provided. Room checked for safety hazards. Sitter remains at bedside.
--- NOTE | 2018-08-22 09:15 | NUR ---
Pt's father Art arrived to visit pt. Pt lying supine in bed, awake, interacting appropriately with visitor. Sitter remains at bedside.
[2018-08-22] MEDS: PARoxetine 20 MG TAB PO SCH (09:32)
[2018-08-22] MEDS: CEPHALEXIN 500 MG CAP PO SCH ×2 (09:32→21:00)
[2018-08-22] MEDS: ARIPiprazole 10 MG TAB PO SCH (09:33)
--- NOTE | 2018-08-22 10:54 | NUR ---
Bedside report given to Michell RAYGOZA. Pt asleep in bed, respirations even & nonlabored, FLACC 0. Pt's father Art sitting at bedside.
--- NOTE | 2018-08-22 10:55 | NUR ---
RECEIVED ENDORSEMENT FROM IDALMIS LIZAMA. PATIENT IS SLEEPING BUT EASILY AROUSABLE. RESPIRATIONS ARE EVEN AND UNLABORED ON ROOM AIR. PATIENT DENIES ANY PAIN OR SUICIDAL IDEATION AT THIS TIME. RIGHT HAND 22G IV INTACT AND SL. PLAN OF CARE WAS REVIEWED WITH PATIENT. PATIENT VERBALIZED UNDERSTANDING. SAFETY MEASURES IN PLACE, CALL LIGHT WITHIN REACH. Addendum: 08/22/18 at 1309 by Michell Ramírez RN FATHER PRESENT AT THE BEDSIDE.
--- NOTE | 2018-08-22 12:50 | NUR ---
PATIENT SLEEPING, EASILY AROUSABLE. PATIENT DENIES ANY PAIN AT THIS TIME. NO OTHER NEEDS AT THIS TIME. WILL CONTINUE TO MONITOR.
--- NOTE | 2018-08-22 13:53 | NUR ---
PATIENT RESTING IN BED. MOM AND DAD PRESENT AT THE BEDSIDE. ADDRESSED ALL QUESTIONS AND CONCERNS. NO OTHER NEEDS AT THIS TIME, WILL CONTINUE TO MONITOR.
--- NOTE | 2018-08-22 15:35 | NUR ---
DR SHIPLEY MADE AWARE OF MAG 1.7 TODAY, NO NEW ORDERS AT THIS TIME.
--- NOTE | 2018-08-22 15:55 | NUR ---
PATIENT SLEEPING, EASILY AROUSABLE. PATIENT DENIES PAIN AT THIS TIME. NO OTHER NEEDS AT THIS TIME, WILL CONTINUE TO MONITOR.
[2018-08-22 16:00] VITALS: BP 134/75
--- NOTE | 2018-08-22 17:15 | NUR ---
PATIENT SLEEPING, EASILY AROUSABLE. PATIENT DENIES ANY PAIN AT THIS TIME. NO OTHER NEEDS AT THIS TIME, WILL CONTINUE TO MONITOR.
--- NOTE | 2018-08-22 19:19 | NUR ---
ENDORSED TO OFFICIAL COURT REPORTER NURSE FOR CONTINUITY OF CARE. PATIENT IS STABLE AT THIS TIME.
--- NOTE | 2018-08-22 19:20 | NUR ---
RECD. RESTING IN BED, AWAKE, A/OX4. RESPIRATION EVEN AND UNLABORED. IV SALINE LOCK AT THE RIGHT HAND G20, PATENT AND INTACT. STATED SHE IS NOT HEARING VOICES AT THIS TIME. PLAN OF CARE FOR THE SHIFT DISCUSSED. NODS HEAD IN UNDERSTANDING. SITTER NEAR DOOR MONITORING PATIENT. DENIES PAIN 0/10.
--- NOTE | 2018-08-22 19:45 | NUR ---
AMBULATED TO BR TO VOID, DENIES PAIN DURING URINATION. ENCOURAGED TO DRINK MORE FLUIDS. NO AGITATION NOTED AT THIS TIME.
--- NOTE | 2018-08-22 20:00 | NUR ---
Patient's Plan of Care was discussed and reviewed with ENVELOPE SEALING MACHINE OPERATOR: RADHA. WILL CONTINUE WITH CURRENT POC.
--- NOTE | 2018-08-22 20:30 | NUR ---
INTERACTING WITH FATHER AT THE BEDSIDE.
--- NOTE | 2018-08-22 21:00 | NUR ---
DUE PO MEDICATIONS GIVEN.
[2018-08-23 00:03] VITALS: BP 123/83
--- NOTE | 2018-08-23 01:30 | NUR ---
WOKE UP, AMBULATED TO BR TO VOID, BACK TO BED AFTER VOIDING AND SLEEP AGAIN.
--- NOTE | 2018-08-23 04:00 | NUR ---
SLEEPING COMFORTABLY IN BED, SITTER SITTING NEAR DOOR.
--- NOTE | 2018-08-23 06:34 | NUR ---
Follow up calls were made through out shift. There were no updates on bed placement. Called [facility], [facility], [facility], [facility], [facility], [facility]. Will endorse to next shift. 5150 expires today 08/23 @ 0023
--- NOTE | 2018-08-23 07:10 | NUR ---
ABLE TO SLEEP WELL. NO SUICIDAL BEHAVIOR NOTED DURING SHIFT. ENDORSED TO AM NURSE FOR CONTINUITY OF CARE.
--- NOTE | 2018-08-23 07:15 | NUR ---
RECEIVED PT FROM GAS TURBINE MECHANIC NURSE, PT IS ASLEEP AND LYING ON THE BED WITH 1:1 SITTER ON THE BEDSIDE, IV LINE ON RT HAND G. 22 ON SALINE LOCK, RESPIRATION IS EVEN AND NO SIGN OF DISTRESS NOTED, ROOM WAS CHECKED FOR ANY HARMFUL OBJECTS. WILL MONITOR PT.
[2018-08-23 08:00] VITALS: BP 124/83
[2018-08-23] MEDS: ARIPiprazole 10 MG TAB PO SCH (08:32)
[2018-08-23] MEDS: CEPHALEXIN 500 MG CAP PO SCH (08:32)
[2018-08-23] MEDS: PARoxetine 20 MG TAB PO SCH (08:33)
--- NOTE | 2018-08-23 08:35 | NUR ---
PT IS AWAKE, 1:1 SITTER ON THE BEDSIDE, DAD TALKING TO PT, ORAL MEDICATIONS WERE GIVEN AND PT TOLERATED IT. PT IS CLAM AND RESPONDING APPROPRIATELY TO DA. WILL MONITOR PT.
--- NOTE | 2018-08-23 10:06 | NUR ---
SPOKE TO RADHA HOOD) AT DR ANITA FREEMAN'S OFFICE AT [phone], CLINIC IS CLOSED FOR TODAY. Addendum: 08/23/18 at 1009 by Pamela Hamilton UNABLE TO OBTAIN FOLLOW UP VISIT.
--- NOTE | 2018-08-23 10:35 | NUR ---
PSYCH DOCTOR CAME TO PT'S ROOM AND SPOKE TO PT NOW.
--- NOTE | 2018-08-23 13:33 | NUR ---
DISCHARGED PT TO HOME WITH FAMILY VIA WHEELCHAIR, TEACHINGS AND INSTRUCTIONS GIVEN TO PT AND VERBALIZED UNDERSTANDING. IV AND ARM BANDS REMOVED AND PT IS STABLE AT THIS TIME, DENIES HURTING SELF NOW.
[2018-08-23] MEDS ORDERED: ARIPiprazole 10 MG TAB PO SCH (21:00)
[2018-08-23] MEDS ORDERED: PARoxetine 20 MG TAB PO SCH (21:00)
--- NOTE | 2018-08-26 11:44 | NUR ---
CALLED PATIENT'S #[phone] SPOKE WITH HER FATHER MR HARLEY ANDREA AND INFORMED HIM THAT I MADE A F/U APPOINTMENT WITH HER PCP DR LYDIA HOWARD [phone] PER PT'S FATHER MR. ANDREA HE HAS TO RESCHEDULE IT HE SAID HE HAS THE NUMBER AND WILL CALL THEM.
== END 2018-08-23 13:33 | disposition home or self-care (01) | DRG 422 ==
LOC: MED 17:40 → MTU 23:20
PROVIDERS: ADMIT Internal Medicine Pulmonary Disease; ATTEND Internal Medicine Pulmonary Disease
DX: E86.0 Dehydration (principal); F31.32 Bipolar disorder, current episode depressed, moderate; F41.9 Anxiety disorder, unspecified; Z79.899 Other long term (current) drug therapy; T36.95XA Adverse effect of unspecified systemic antibiotic, initial encounter; Y92.89 Other specified places as the place of occurrence of the external cause
CPT/HCPCS: 36415; 80053; 80305; 81001; 81025; 82009; 83605; 83735; 85025; 87081; 87086; 93005; 96361; 96365; 96375; 99285; G0482; J2405; J3475; J7030

== ENCOUNTER 2018-10-22 17:47 | Emergency (ER) | payer OTHER ==
[~2018-10-22] VITALS: Ht 170.2 cm; Wt 129.3 kg
[~2018-10-22 17:47] MED LIST changes: +CEPH250C16 PO
[2018-10-22 17:55] VITALS: BP 133/66
[2018-10-22 18:52] LABS: BASOPHILS # (AUTO) 0.1 K/uL (0.00-0.22); BASOPHILS % (AUTO) 0.7 % (0.0-2.0); EOSINOPHILS # (AUTO) 0.3 K/uL (0-0.4); EOSINOPHILS % (AUTO) 4.4 % (0.0-4.0); HEMATOCRIT 40.6 % (36-48); HEMOGLOBIN 13.2 g/dL (12.0-16.0); LYMPHOCYTES # (AUTO) 2.4 K/uL (2.5-16.5); LYMPHOCYTES % (AUTO) 32.3 % (20.5-51.1); MEAN CORPUSCULAR HEMOGLOBIN 28 pg (27-31); MEAN CORPUSCULAR HGB CONC 33 g/dL (33-37); MEAN CORPUSCULAR VOLUME 86.7 fL (80-94); MONOCYTES # (AUTO) 0.6 K/uL (0.8-1.0); MONOCYTES % (AUTO) 7.8 % (1.7-9.3); NEUTROPHILS # (AUTO) 4.2 K/uL (1.8-7.7); NEUTROPHILS % (AUTO) 54.8 % (42.2-75.2); PLATELET COUNT (AUTO) 197 K/uL (140-450); RED BLOOD CELL COUNT(AUTO) 4.69 MIL/uL (4.20-5.40); RED CELL DISTRIBUTION WIDTH 14.9 % (11.6-13.7); WHITE BLOOD COUNT (AUTO) 7.6 K/uL (4.8-10.8)
[2018-10-22 19:07] LABS: ANION GAP 15.2 (8-16); CARBON DIOXIDE 26.7 mmol/L (21-32); CHLORIDE 105 mmol/L (98-107); CREATININE 1.1 mg/dL (0.6-1.3); GFR ARICAN-AMERICAN 77 mL/min (>90); GLUCOSE 90 mg/dL (74-106); POTASSIUM 3.9 mmol/L (3.5-5.1); SODIUM SERUM 143 mmol/L (136-145); UREA NITROGEN, BLOOD 18 mg/dL (7-18)
[2018-10-22 19:12] LABS: ALBUMIN 3.6 g/dL (3.4-5.0); ASPARTATE AMINOTRANSFERASE 15 U/L (15-37); TOTAL BILIRUBIN 0.2 mg/dL (0.0-1.0)
[2018-10-22 19:13] LABS: ACETAMINOPHEN < 0.5 ug/ml (10-30); SALICYLATE < 2.8 mg/dL (2.8-20.0)
[2018-10-22 19:27] LABS: APPEARANCE,URINE SL CLOUDY (CLEAR); BILIRUBIN,URINE NEGATIVE (NEGATIVE); BLOOD, URINE 3+ (NEGATIVE); COLOR,URINE AMBER (YELLOW); LEUKOCYTE ESTERASE ,URINE TRACE (NEGATIVE); NITRITE, URINE NEGATIVE (NEGATIVE); UGLUCOSE NEGATIVE (NEGATIVE)
[2018-10-22 19:35] LABS: RBC,URINE 20-50 /HPF (0-5)
[2018-10-22 19:40] LABS: BARBITURATE, URINE NEG. ng/ml (NEG <=200); BENZODIAZEPINE, URINE NEG. ng/mL (NEG <=200); CANNABINOID, URINE NEG. ng/mL (NEG <=50); COCAINE, URINE NEG. ng/mL (NEG <=300); OPIATE, URINE NEG. ng/mL (NEG <=2000); PHENCYCLIDINE SCREEN,URINE NEG. ng/mL (NEG <=25)
[2018-10-22 23:56] VITALS: BP 130/77
== END 2018-10-22 23:56 | disposition home or self-care (01) ==
LOC: MED 17:47
DX: F29 Unspecified psychosis not due to a substance or known physiological condition (principal); F32.9 Major depressive disorder, single episode, unspecified; Z86.69 Personal history of other diseases of the nervous system and sense organs; Z79.899 Other long term (current) drug therapy; Z79.2 Long term (current) use of antibiotics
CPT/HCPCS: 36415; 80053; 80305; 81001; 81025; 85025; 87086; 93005; 99284; G0480; G0482

== ENCOUNTER 2018-12-13 10:39 | Inpatient (IN) | payer OTHER ==
--- NOTE | 2018-12-09 21:00 | NUR ---
FAXED AGAIN THE APPLICATION FOR ASSESSMENT TO [facility]; RECEIVED BY RAMIRO Addendum: 12/17/18 at 0615 by Dania Reilly RN JIGNESH DUFFY
[~2018-12-13] VITALS: Ht 167.6 cm; Wt 99.8 kg
--- NOTE | 2018-12-13 10:42 | NUR ---
PT AMBULATED TO BED 2.
[2018-12-13 10:46] VITALS: BP 131/92
--- NOTE | 2018-12-13 10:57 | NUR ---
UPON INTIAL TRIAGE, PT AND MOTHER STATED PT C/O UTI SYMTPOMS. WHEN COLLECTING URINE, MOTHER ADDS THAT HER DAUGHTER IS SUICIDAL. PT VERBALLY STATES SHE IS HEARING HALLUCINATIONS AND IS SUICIDAL PT MOVED TO BED 6
--- NOTE | 2018-12-13 11:11 | NUR ---
Patient transferred to bed 6 for further care. RN re-evaluating patient at bedside.
--- NOTE | 2018-12-13 11:12 | NUR ---
C/O SUICDAL IDEATION/HALLUCINATIONS. WAS RECENTLY RELEASED FROM BEHAVIORAL FACILITY ON 12/11.PT STATED SHE HAS BURING SENSATION WHEN SHE GOES BATHROOM X 1-2 WEEKS. NO URGENCY NOTED. PMH- DEPRESSION, AUSTISM . DENIES N/V/D; SKIN IS PINK/WARM/DRY; AAOX4 WITH EVEN AND STEADY GAIT; LUNGS CLEAR BL; HR EVEN AND REGULAR; PT DENIES ANY FEVER, CP, SOB, OR COUGH AT THIS TIME; PATIENT STATES PAIN OF 5/10 AT THIS TIME; VSS; PATIENT POSITIONED FOR COMFORT; HOB ELEVATED; BEDRAILS UP X2; BED DOWN. ER MD MADE AWARE OF PT STATUS. MOTHER AT BEDSIDE.
--- NOTE | 2018-12-13 11:17 | NUR ---
Telepsychiatry consultation ordered as requested by Dr. Hirsch.
[2018-12-13 11:36] LABS: APPEARANCE,URINE SL CLOUDY (CLEAR); BILIRUBIN,URINE NEGATIVE (NEGATIVE); BLOOD, URINE NEGATIVE (NEGATIVE); COLOR,URINE YELLOW (YELLOW); LEUKOCYTE ESTERASE ,URINE 1+ (NEGATIVE); NITRITE, URINE NEGATIVE (NEGATIVE); PH,URINE 5.5 (5.0-9.0); UGLUCOSE NEGATIVE (NEGATIVE)
[2018-12-13 11:47] LABS: RBC,URINE 0-5 /HPF (0-5)
--- NOTE | 2018-12-13 12:09 | NUR ---
Telepsych speaking with patietn and mother at bedside.
--- NOTE | 2018-12-13 12:45 | NUR ---
Called [place] [employer] for 5150 hold evaluation.
[2018-12-13 13:07] LABS: BASOPHILS % (AUTO) 0.7 % (0.0-2.0); EOSINOPHILS # (AUTO) 0.4 K/uL (0-0.4); EOSINOPHILS % (AUTO) 5.9 % (0.0-4.0); HEMATOCRIT 42.5 % (36-48); HEMOGLOBIN 13.9 g/dL (12.0-16.0); LYMPHOCYTES # (AUTO) 2.1 K/uL (2.5-16.5); MEAN CORPUSCULAR HEMOGLOBIN 29 pg (27-31); MEAN CORPUSCULAR HGB CONC 33 g/dL (33-37); MEAN CORPUSCULAR VOLUME 87.8 fL (80-94); MONOCYTES # (AUTO) 0.5 K/uL (0.8-1.0); MONOCYTES % (AUTO) 8.5 % (1.7-9.3); NEUTROPHILS # (AUTO) 3.4 K/uL (1.8-7.7); NEUTROPHILS % (AUTO) 51.9 % (42.2-75.2); PLATELET COUNT (AUTO) 170 K/uL (140-450); RED BLOOD CELL COUNT(AUTO) 4.84 MIL/uL (4.20-5.40); RED CELL DISTRIBUTION WIDTH 14.5 % (11.6-13.7); WHITE BLOOD COUNT (AUTO) 6.5 K/uL (4.8-10.8)
--- NOTE | 2018-12-13 13:12 | NUR ---
[facility] aware of patient and will continue to follow. Please fax clinicals and [phone] hold when placed to [phone] for placement assistance. Thank you
[2018-12-13 13:45] LABS: BARBITURATE, URINE NEGATIVE ng/ml (NEG <=200); BENZODIAZEPINE, URINE NEGATIVE ng/mL (NEG <=200); CANNABINOID, URINE NEGATIVE ng/mL (NEG <=50); COCAINE, URINE NEGATIVE ng/mL (NEG <=300); OPIATE, URINE NEGATIVE ng/mL (NEG <=2000); PHENCYCLIDINE SCREEN,URINE NEGATIVE ng/mL (NEG <=25)
[2018-12-13 13:49] LABS: ANION GAP 11.6 (8-16); CHLORIDE 106 mmol/L (98-107); GFR ARICAN-AMERICAN 86 mL/min (>90); GLUCOSE 111 mg/dL (74-106); POTASSIUM 4.6 mmol/L (3.5-5.1); SODIUM SERUM 143 mmol/L (136-145); UREA NITROGEN, BLOOD 11 mg/dL (7-18)
--- NOTE | 2018-12-13 13:53 | NUR ---
Denice ALEXANDER at bedside for 5150 hold evaluation.
[2018-12-13 13:57] LABS: ASPARTATE AMINOTRANSFERASE 14 U/L (15-37); TOTAL BILIRUBIN 0.4 mg/dL (0.0-1.0)
[2018-12-13 13:59] LABS: ACETAMINOPHEN < 0.5 ug/ml (10-30); ALBUMIN 3.8 g/dL (3.4-5.0); SALICYLATE < 2.8 mg/dL (2.8-20.0)
--- NOTE | 2018-12-13 16:41 | NUR ---
Pt Packed received by [facility]. Contacted the following facilities: No beds available, faxed for waitlist. [facility], [facility], [facility], [place]. Will f/u.
[2018-12-13] MEDS ORDERED: NITROFURANTOIN 100 MG CAP PO ONE (17:00)
--- NOTE | 2018-12-13 18:00 | NUR ---
OFFERED PT DINNER TRAY.
--- NOTE | 2018-12-13 18:20 | NUR ---
Received report from outgoing shift. Will continue to look for placement
--- NOTE | 2018-12-13 19:05 | NUR ---
ENDORSED TO PM SHIFT RN
--- NOTE | 2018-12-13 23:15 | NUR ---
PT CONTINUES TO HAVE SUICIDAL IDEATIONS BUT GUARDED ABOUT ANY PLAN. STATES SHE STILL HEARS VOICES TELLING HER TO HURT HERSELF. WILL CONTINUE TO MONITOR.
--- NOTE | 2018-12-13 23:53 | NUR ---
[facility] no beds [facility] no beds [facility] no answer [facility] Razia no beds [facility] s[facility]w [facility] no beds
--- NOTE | 2018-12-14 03:11 | NUR ---
PT ASLEEP ON BED. PRESENTS GUARDED ABOUT ANY SUICIDAL IDEATIONS. PT HAS A FLAT AFFECT AND IS WITHDRAWN. PT VSS. WILL CONTINUE TO MONITOR.
--- NOTE | 2018-12-14 05:38 | NUR ---
Still no beds at any of the contracted facilities. Will endorse to incoming shift to continue to seek placement
--- NOTE | 2018-12-14 07:24 | NUR ---
RECEIVED REPORT FROM MARIAN RAYGOZA. PT FOUND SLEEPING IN BED LYING LEFT LATERAL. BREAKFAST TRAY PROVIDED FOR PATIENT. PT IS WAITING FOR PLACEMENT TO A PSYCHIATRIC FACILITY.
--- NOTE | 2018-12-14 08:02 | NUR ---
Pt does not want to eat at this time. Pt is calm and relaxed, states she wants to sleep a little longer. Lights in room dimmed. Sitter at bedside.
--- NOTE | 2018-12-14 08:18 | NUR ---
Spoke with patient's mother Larissa, she was given an update on patient's status. Mother transferred to a portable phone and speaking to patient.
--- NOTE | 2018-12-14 08:18 | NUR ---
Larissa (patient's mother)-
[2018-12-14] MEDS ORDERED: NITROFURANTOIN 100 MG CAP ONE ×2 (09:11→17:05)
--- NOTE | 2018-12-14 09:12 | NUR ---
Pt report given to Celine RAYGOZA . Transfer of care at this time.
[2018-12-14] MEDS: NITROFURANTOIN 100 MG CAP PO SCH ×2 (09:13→17:09)
--- NOTE | 2018-12-14 09:13 | NUR ---
Report received from IDALMIS Paz. Transfer of care at this time.
--- NOTE | 2018-12-14 09:50 | NUR ---
pt is sleeping in bed.
--- NOTE | 2018-12-14 10:24 | NUR ---
Pt is resting in bed with eyes opened. Calm and relaxed. VSS.
[2018-12-14] MEDS ORDERED: ARIP20TA1 PO (11:21)
[2018-12-14] MEDS ORDERED: PAX20 PO (11:21)
[2018-12-14] MEDS ORDERED: OLAN2.5T1 PO (11:22)
[2018-12-14] MEDS ORDERED: OLANZapine 5 MG ODT SL ONE (11:30)
--- NOTE | 2018-12-14 11:49 | NUR ---
PT IS RESTING IN BED WITH EYES OPENED. CALM AND RELAXED. PARENTS ARE AT BEDSIDE.
--- NOTE | 2018-12-14 12:12 | NUR ---
PT IS EATING IN BED.
--- NOTE | 2018-12-14 13:56 | NUR ---
PT IS SITTING IN BED. CALM AND RELAXED.
--- NOTE | 2018-12-14 14:39 | NUR ---
PT IS SITING IN BED WITH EYES OPENED. CALM AND RELAXED.
--- NOTE | 2018-12-14 14:44 | NUR ---
MOTHER IS BACK AND SITTING AT BEDSIDE.
--- NOTE | 2018-12-14 15:13 | NUR ---
ICED WATER PROVIDED TO PT. MOTHER IS SITING AT BEDSIDE. PT IS CALM AND RELAXED.
--- NOTE | 2018-12-14 16:00 | NUR ---
Pt ambulated to restroom without assistance. Gurney sheet, pillow case and blankets removed from bed, new clean sheet and pillow case applied to bed. Pt also provided with a new clean gown. Warm blanket provided. Pt placed in position of comfort. Mother at bedside. All questions answered at this time.
--- NOTE | 2018-12-14 16:59 | NUR ---
Crackers and juice provided to pt. Mother is at bedside. Pt is calm and relaxed.
--- NOTE | 2018-12-14 17:23 | NUR ---
PT IS EATING DINNER IN BED. MOTHER IS AT BEDSIDE. PT IS CALM AND RELAXED.
--- NOTE | 2018-12-14 19:14 | NUR ---
Pt report given to IDALMIS Temple. Transfer of care at this time.
--- NOTE | 2018-12-14 19:31 | NUR ---
PT AWAKE, LAYING ON BED. PT GUARDED ABOUT ANY SUICIDAL IDEATIONS. CONTINUES TO ENDORSE AUDITORY HALLUCINATIONS; DENIES COMMAND HALLUCINATIONS. WILL CONTINUE TO MONITOR.
--- NOTE | 2018-12-14 19:55 | NUR ---
PT ADMITTED TO [facility] RM 110A. PT TRANSFERRED VIA [facility] WITH [facility] EMT, STABLE CONDITION. REPORT GIVEN TO TERRY RAYGOZA. PT CARE TRANSFERRED TO RECEIVING RN.
[2018-12-14 20:00] VITALS: BP 102/49
--- NOTE | 2018-12-14 20:00 | NUR ---
Admitted from ER TO MED SURGICAL UNIT, with chief complaint of SUICIDAL IDEATION, HEARING VOICES, UTI, 28 y/o ,Female, Cooperative, AWAKE, A/OX4, OBESE. RESPIRATION EVEN AND UNLABORED. NO IV LINE. INDEPENDENT, ABLE TO AMBULATE BY HERSELF. WHEN INQUIRED IS SHE HAS THOUGHTS OF HURTING SELF, STATED "YES". HEAD TO TOE ASSESSMENT DONE WITH CHARGE NURSE WILD, SKIN INTACT. PLAN OF CARE FOR THE SHIFT DISCUSSED. VERBALIZED UNDERSTANDING. DENIES PAIN 0/10. oriented to call light, bed, phone,television, bathroom, smoking policy,visiting hours, procedures, ID bracelet on. Belongings list checked.
[2018-12-14] MEDS: OLANZapine 5 MG TAB PO SCH (21:26)
[2018-12-14] MEDS: ARIPiprazole 10 MG TAB PO SCH (21:26)
[2018-12-14] MEDS: PARoxetine 20 MG TAB PO SCH (21:27)
--- NOTE | 2018-12-14 21:27 | NUR ---
DUE PO MEDICATIONS GIVEN. WATCHING TV.
--- NOTE | 2018-12-14 23:00 | NUR ---
SLEEPING COMFORTABLY IN BED.
[2018-12-15] VITALS: BP 92/44
--- NOTE | 2018-12-15 00:20 | NUR ---
Patient's Plan of Care was discussed and reviewed with SANDING SUPERVISOR: TERRY GARCIA.
--- NOTE | 2018-12-15 02:00 | NUR ---
NO DISTRESS NOTED. STILL SLEEPING COMFORTABLY IN BED.
--- NOTE | 2018-12-15 04:00 | NUR ---
CONTINUED SLEEPING IN BED. NO APPEARANCE OF DISCOMFORT NOTED.
--- NOTE | 2018-12-15 06:30 | NUR ---
WAKEN UP AND ENCOURAGED TO GO OUT OF BED AND VOID IN THE BR BUT CONTINUED SLEEPING AND SAID "LATER".
--- NOTE | 2018-12-15 07:00 | NUR ---
CONDITION REMAIN STABLE. STILL SLEEPING COMFORTABLY IN BED. NEW SITTER MONITORING PATIENT. WILL ENDORSE TO AM NURSE TO FOLLOW UP VOIDING AND FOR CONTINUITY OF CARE.
--- NOTE | 2018-12-15 07:20 | NUR ---
RECEIVED REPORT FROM FISH NET MAKER NURSE. PATIENT LYING DOWN IN BED SLEEPING, AROUSABLE BY VOICE. NO DISTRESS NOTED. DENIES ANY PAIN. RESPIRATIONS EVEN, UNLABORED, ON ROOM AIR. AAOX4, CALM, COOPERATIVE, SKIN COLOR APPROPRIATE TO ETHNICITY, WARM TO TOUCH. SKIN INTACT. NO IV SITE IN PLACE, MD AWARE. ABDOMEN SOFT, OBESE. REVIEWED PLAN OF CARE WITH PATIENT. PATIENT VERBALIZED UNDERSTANDING. SAFETY MEASURES IN PLACE, SITTER AT BEDSIDE. WILL CONTINUE TO MONITOR.
--- NOTE | 2018-12-15 07:31 | NUR ---
OLI FROM BEHAVIORAL DEPARTMENT IN [facility] CALLED AND SAID THAT HE IS IN [facility] AND PT IS BELONGING TO [facility] AND HE CAN NOT FIND PLACE FOR PT.AMPHIBIAN CREWMEMBER HAS TO DO THAT.
[2018-12-15 08:00] VITALS: BP 117/78
[2018-12-15] MEDS ORDERED: NITROFURANTOIN 100 MG CAP PO SCH (08:00)
--- NOTE | 2018-12-15 08:22 | NUR ---
PATIENT HAS BEEN SCREENED AND CATEGORIZED LOW NUTRITION RISK. PATIENT WILL BE SEEN WITHIN 7 DAYS OF ADMISSION. 12/20/[address]
[2018-12-15] MEDS: OLANZapine 5 MG TAB PO SCH ×2 (09:46→20:40)
--- NOTE | 2018-12-15 09:49 | NUR ---
PATIENT SITTING IN BED COLORING IN COLORING BOOK. NO DISTRESS NOTED. REPORTS HAVING THOUGHTS OF HARMING SELF, BUT NO PLANS. SITTER AT BEDSIDE. WILL CONTINUE TO MONITOR.
[2018-12-15 16:00] VITALS: BP 118/75
--- NOTE | 2018-12-15 16:30 | NUR ---
JULI FROM [facility] CALLED FOR INFORMATION, PER JULI, THEY ARE NOT ABLE TO ACCEPT PATIENT DUE TO HAVING A HISTORY OF AUTISM. [facility] DOES NOT ACCEPT PATIENT'S WITH AUTISM.
--- NOTE | 2018-12-15 17:08 | NUR ---
PATIENT HAD AN EPISODE PSEUDOSEIZURE THAT LASTED 2 MIN, WITH BODY SHAKING. PATIENT RESPONDING AND FOLLOWING COMMANDS DURING SEIZURE. NOTIFIED DR. JAMES FOR ATIVAN ORDER.
--- NOTE | 2018-12-15 19:16 | NUR ---
GAVE REPORT TO DENTURE PACKER NURSE FOR CONTINUITY OF CARE. PATIENT IN STABLE CONDITION.
--- NOTE | 2018-12-15 19:17 | NUR ---
RECEIVED BEDSIDE REPORT FROM DAY SHIFT NURSE. PATIENT LYING DOWN IN BED. FAMILY AT BEDSIDE. NO DISTRESS NOTED. DENIES ANY PAIN. RESPIRATIONS EVEN, UNLABORED, ON ROOM AIR. AAOX4, CALM, COOPERATIVE, SKIN WARM AND DRY TO TOUCH. SKIN INTACT. IV SITE ON LFA 22G, SL, PATENT, INTACT AND ASYMPTOMATIC. ABDOMEN SOFT. REVIEWED PLAN OF CARE WITH PATIENT. PATIENT VERBALIZED UNDERSTANDING. SAFETY MEASURES IN PLACE, SITTER AT BEDSIDE. WILL CONTINUE TO MONITOR.
--- NOTE | 2018-12-15 19:48 | NUR ---
ENDORSED PT TO CHARGE NURSEWILD FOR CONTINUOUS CARE. PT IN STABLE CONDITION.
--- NOTE | 2018-12-15 20:09 | NUR ---
Report received from day shift and will continue to follow up with Vern Ryan [facility] contracted psych facilities.
--- NOTE | 2018-12-15 20:15 | NUR ---
RECEIVED REPORT FROM LOYD RAYGOZA.PT IS IN STABLE CONDITION.PARENTS AT BEDSIDE.NO S/S OF ANY DISTRESS NOTED.WILL CONTINUE MONITORING.
[2018-12-15] MEDS: ARIPiprazole 10 MG TAB PO SCH (20:39)
[2018-12-15] MEDS: PARoxetine 20 MG TAB PO SCH (20:39)
[2018-12-15] MEDS: LORazepam 2 MG/ML VIAL IVP PRN (20:40)
--- NOTE | 2018-12-15 20:42 | NUR ---
HAD C/O SEIZURE .ALL PO MEDS GIVEN ALSO ATIVAN IVP .VS STABLE.WILL CONTINUE MONITORING.
[2018-12-16] VITALS: BP 108/75
--- NOTE | 2018-12-16 | NUR ---
NO SZ ANYMORE.SLEEPING W/O S/S OF ANY DISTRESS.SITTER AT BEDSIDE.
--- NOTE | 2018-12-16 01:21 | NUR ---
Follow up calls were made to contracted psych facilities, still no beds available for remainder of shift. [facility], spoke with Cullen. [facility], spoke with Christina. [facility], spoke with Kimberley. [facility], spoke with Poly. [facility], spoke with Verna. [facility], spoke with Corina. [facility], spoke with Nabil.
[2018-12-16 06:44] LABS: BASOPHILS # (AUTO) 0.1 K/uL (0.00-0.22); BASOPHILS % (AUTO) 0.8 % (0.0-2.0); EOSINOPHILS # (AUTO) 0.5 K/uL (0-0.4); EOSINOPHILS % (AUTO) 6.5 % (0.0-4.0); HEMOGLOBIN 13.2 g/dL (12.0-16.0); LYMPHOCYTES % (AUTO) 38.1 % (20.5-51.1); MEAN CORPUSCULAR HEMOGLOBIN 29 pg (27-31); MEAN CORPUSCULAR HGB CONC 33 g/dL (33-37); MEAN CORPUSCULAR VOLUME 88.2 fL (80-94); MONOCYTES # (AUTO) 0.7 K/uL (0.8-1.0); MONOCYTES % (AUTO) 8.4 % (1.7-9.3); NEUTROPHILS # (AUTO) 3.7 K/uL (1.8-7.7); NEUTROPHILS % (AUTO) 46.2 % (42.2-75.2); PLATELET COUNT (AUTO) 188 K/uL (140-450); RED BLOOD CELL COUNT(AUTO) 4.54 MIL/uL (4.20-5.40); WHITE BLOOD COUNT (AUTO) 7.9 K/uL (4.8-10.8)
--- NOTE | 2018-12-16 07:18 | NUR ---
Received report from night monitor. Will continue to look for placement.
--- NOTE | 2018-12-16 07:20 | NUR ---
REPORT GIVEN TO MATTHEW RAYGOZA.PT IS IN STABLE CONDITION.
--- NOTE | 2018-12-16 08:00 | NUR ---
RECEIVED REPORT FROM IDALMIS ROME. PATIENT ASLEEP, AROUSABLE, NOT IN ANY DISTRESS NOTED. VITALS TAKEN. HEPLOCK ON THE LEFT FOREARM DRY AND INTACT. SITTER PRESENT. NEEDS ATTENDED. WILL CONTINUE TO MONITOR.
[2018-12-16 08:23] VITALS: BP 127/69
[2018-12-16] MEDS: OLANZapine 5 MG TAB PO SCH ×2 (09:28→21:37)
[2018-12-16] MEDS: LORazepam 2 MG/ML VIAL IVP PRN (10:43)
--- NOTE | 2018-12-16 10:45 | NUR ---
PATIENT VERY AGITATED, MOTHER AT BEDSIDE, MEDICATED WITH ATIVAN ORDERED. WILL CONTINUE TO MONITOR.
--- NOTE | 2018-12-16 14:40 | NUR ---
FLACO FROM [facility] [phone] AND ASKING FOR RENEWAL OF HOLD. SPOKE TO DR. JOY AND HE SAID PATIENT IS STILL ON HOLD. HE IS NOT UNABLE TO WRITE THE RENEWAL TODAY AND HE SAID HE TALK TO THE MOTHER YESTERDAY ABOUT THE PLAN THAT PATIENT NEED IN PATIENT PSYCH.
[2018-12-16 16:00] VITALS: BP 116/76
--- NOTE | 2018-12-16 16:13 | NUR ---
SEEN BY DR. MORENO, COVERING FOR DR JOY, AND SHE WILL RENEW THE HOLD. WILL NOTIFY FLACO [facility].
--- NOTE | 2018-12-16 16:13 | NUR ---
WILL ENDORSE TO MIRIAM FOR CONTINUITY OF CARE. NO SEIZURE NOTED.
--- NOTE | 2018-12-16 16:14 | NUR ---
RECEIVED REPORT FROM CHARGE NURSE MATTHEW FOR CONTINUITY OF CARE. PT IN STABLE CONDITION. RESPIRATIONS EVEN AND UNLABORED. IV INTACT AND PATENT. BED IN LOW POSITION. SITTER 1:1. WILL CONTINUE TO MONITOR.
--- NOTE | 2018-12-16 16:27 | NUR ---
Discharge Plan: KM faxed [phone] to [facility] [phone]. KM/SYED will follow up as needed. Addendum: 12/18/18 at 0924 by Shahid Munoz Patient is a 28 year old female admitted for 5150 on 12/14/2018. Patient's hold was extended on 12/16/2018 1610 and will be expiring 12/19/2018 1610. Patient is currently awaiting placement for inpatient psych. VICKY will follow up. Addendum: 12/18/18 at 1613 by Shahid Munoz KM contacted Charge Nurse Vince to discuss DC plan for patient. Per Vince, patient is pending psych consult with Dr. Mejias on 12/19/2018. VICKY will follow up with patient.
--- NOTE | 2018-12-16 18:01 | NUR ---
PT SITTING IN BED LOOKING AT MAGAZINE IN STABLE CONDITION. WILL CONTINUE TO MONITOR. SITTER 1:1. BED IN LOW POSITION.
--- NOTE | 2018-12-16 19:25 | NUR ---
GAVE REPORT TO WELDER FITTER ARC NURSE SAKSHI FOR CONTINUITY OF CARE. PT IN STABLE CONDITION.
--- NOTE | 2018-12-16 19:26 | NUR ---
RECEIVED REPORT FROM AM NURSE, PATIENT AWAKE, ALERT ORIENTED X 4 WITH MOTHER AT BEDSIDE. NOT IN ANY DISTRESS NOTED. HEPLOCK ON THE LEFT FOREARM LG 22; DRY AND INTACT. SITTER PRESENT. NEEDS ATTENDED. WILL CONTINUE TO MONITOR.
[2018-12-16 20:00] VITALS: BP 131/64
--- NOTE | 2018-12-16 21:13 | NUR ---
FAXED AGAIN THE APPLICATION FOR ASSESSMENT TO [facility]; RECEIVED BY RAMIRO
[2018-12-16] MEDS: ARIPiprazole 10 MG TAB PO SCH (21:37)
[2018-12-16] MEDS: PARoxetine 20 MG TAB PO SCH (21:38)
--- NOTE | 2018-12-16 22:10 | NUR ---
PATIENT HAD A PSEUDOSEIZURE; PATIENT WAS TURNING FROM SIDE TO SIDE IN A NORMAL MANNER, NO RESPIRATORY DISTRESS NOTED WHILE PSEUDOSEIZURE ONGOING. LASTING FOR 15 MINS; PATIENT'S COLOR STILL NORMAL. AFTER PATIENT WAS TALKING AND ASKING FOR CANDY TO HER ROOMATE. NO DEFICITS NOTED. PLACED PATIENT BACK TO BED. PT TRIED CLOSING HER EYES.
--- NOTE | 2018-12-16 23:20 | NUR ---
PATIENT STOOD UP AND WENT TO BRUSH HER TEETH AT THE SMALL SINK. FIXED HERSELD. ASSISTED PT BACK TO BED IN A SUPINE POSITION. PT TRYING TO GET SOME SLEEP
--- NOTE | 2018-12-17 08:00 | NUR ---
RECEIVED REPORT FROM SENIOR CORPORATE RECRUITER. PATIENT ALERT AWAKE ORIENTED X4, NOT IN ANY DISTRESS NOTED. PATIENT DENIES HURTING HERSELF, NO AUDITORY HALLUCINATIONS, NO SEIZURE NOTED. INITIAL ASSESSMENT INITIATED. WILL CONTINUE TO MONITOR.
[2018-12-17 08:08] VITALS: BP 130/65
[2018-12-17] MEDS: OLANZapine 5 MG TAB PO SCH ×2 (09:08→20:33)
--- NOTE | 2018-12-17 12:19 | NUR ---
PATIENT C/O CONSTIPATION, WILL PAGE DR. DIAZ. RESTING IN BED, MOTHER AT BEDSIDE. WILL CONTINUE TO MONITOR.
[2018-12-17] MEDS: LORazepam 2 MG/ML VIAL IVP PRN (13:59)
--- NOTE | 2018-12-17 14:30 | NUR ---
Followed with cyn Galarza/veronica Garcia. No beds at this time.
--- NOTE | 2018-12-17 14:31 | NUR ---
Packet faxed to Jacquelyn at [facility] for wait-list. No beds at this time.
--- NOTE | 2018-12-17 14:34 | NUR ---
Followed up with cyn Patten/veronica Ford. No beds.
--- NOTE | 2018-12-17 14:35 | NUR ---
Called [facility], was transferred to [place] SU[facility]. NO answer.
--- NOTE | 2018-12-17 14:41 | NUR ---
Called [facility] s/w Amparo. No beds. Possible discharges later.
[2018-12-17 16:12] VITALS: BP 103/62
--- NOTE | 2018-12-17 17:52 | NUR ---
SEEN BY DR. DIAZ TODAY WITH ORDER OF MIRALAX. PATIENT HAD ONE TIME PSEUDO SEIZURE LASTED FOR ONE MINUTE.MOTHER AT BEDSIDE. WILL CONTINUE TO MONITOR.
--- NOTE | 2018-12-17 19:30 | NUR ---
RECEIVED FROM AM RN IN BED AWAKE AND ALERT FROM CHARGE NURSE. MOTHER AT BEDSIDE. SITTER IN PLACE. NO SOB. NEEDS WILL BE ANTICIPATED AND WILL BE MET. NEEDS ASSIST WITH ADLS. AFEBRILE. WILL CONTINUE WITH CARE FOR THE NIGHT. NO RESTLESSNESS. DX. SUICIDAL IDEATION. HX. OF SCHIZO, AUTISM , PSEUDO SEIZURES, DEPRESSION, HALLUCINATIONS AND VISUAL AUDITORY. IVF SITE LFA #22. INTACT AND WITH GOOD BLOOD RETURN.
[2018-12-17] MEDS: ARIPiprazole 10 MG TAB PO SCH (20:30)
[2018-12-17] MEDS: PARoxetine 20 MG TAB PO SCH (20:32)
--- NOTE | 2018-12-17 21:00 | NUR ---
MOTHER LEFT FOR HOME. NO COMPLAINTS DONE. ALL P.O. MEDICATIONS TAKEN WELL. SITTING UP ON SIDE OF BED AND WATCHING TV.
--- NOTE | 2018-12-17 23:00 | NUR ---
PT. STILL AWAKE AT THIS TIME WATCHING TV. ENCOURAGED TO SLEEP. SITTER PRESENT AND WATCHING OVER HER.
--- NOTE | 2018-12-18 | NUR ---
SLEEPING. NO COMPLAINTS DONE. SITTER WATCHING.
[2018-12-18 00:25] VITALS: BP 106/74
--- NOTE | 2018-12-18 03:00 | NUR ---
CHECKED ON PT. SLEEPING WELL. NO SEIZURES.
--- NOTE | 2018-12-18 05:20 | NUR ---
PT. SLEEPING WELL THIS SHIFT. NO COMPLAINTS DONE AND NO SEIZURES NOTED SINCE START OF SHIFT. WITH SITTER.
--- NOTE | 2018-12-18 07:00 | NUR ---
WILL ENDORSE TO AM RN FOR CONTINUITY OF CARE. SLEEPING WELL THIS SHIFT. SITTER IN PLACE. NO SEIZURES NOTED AND REPORTED BY SITTER THIS SHIFT. HEP LOCKED WITH IVF.
--- NOTE | 2018-12-18 07:13 | NUR ---
RECEIVED REPORT FROM MOLASSES PREPARER NURSE. PT IS AROUSABLE TO NAME, ORIENTED X4, NO C/O PAIN AT THIS TIME. IV ON LT FA 22 GA ON SALINE LOCK. RESPIRATIONS EVEN AND UNLABORED ON RA. ABD SOFT, ACTIVE BS. SKIN IS INTACT, WARM TO TOUCH. PT IS ON FALL RISK PRECAUTIONS, SAFETY MEASURES IN PLACE, CALL LIGHT WITHIN REACH. SITTER AT BEDSIDE. REVIEWED POC WITH PT, PT VERBALIZED UNDERSTANDING BUT WILL NEED REINFORCEMENT.
[2018-12-18 08:00] VITALS: BP 109/74
[2018-12-18] MEDS: POLYETHYLENE GLYCOL 17 GM/PKT PO SCH (08:58)
[2018-12-18] MEDS: OLANZapine 5 MG TAB PO SCH ×2 (08:58→21:01)
--- NOTE | 2018-12-18 08:58 | NUR ---
ADMINISTERED MIRALAX AND ZYPREXA PER ORDER, REVIEWED INDICATIONS AND POTENTIAL SIDE EFFECTS OF MEDICATIONS. PT HAS NO SIGNS OF DISTRESS AT THIS TIME.
--- NOTE | 2018-12-18 11:18 | NUR ---
PT RESTING IN BED IN SUPINE POSITION. PT HAS NO SIGNS OF DISTRESS AT THIS TIME.
--- NOTE | 2018-12-18 12:58 | NUR ---
12/18/18 RD INITIAL ASSESSMENT COMPLETED PLEASE REFER TO NUTRITION ASSESSMENT UNDER CARE ACTIVITY FOR ESTIMATED NUTRITIONAL NEEDS. 1. CONTINUE REGULAR DIET TOLERATED 2. RD TO FOLLOW-UP 5-7 DAYS, LOW RISK RAMAN BAIG RD
--- NOTE | 2018-12-18 13:25 | NUR ---
PT IS CONVERSATIONAL, VISITOR AT BEDSIDE. PT HAS NO C/O PAIN OR SIGNS OF DISTRESS AT THIS TIME.
[2018-12-18 14:25] VITALS: BP 99/50
--- NOTE | 2018-12-18 14:25 | NUR ---
PT HAD SEIZURE-LIKE ACTIVITY FOR 5 MINUTES, PT ON LEFT LATERAL SIDE. RN RUSLAN AND MOTHER AT SIDE. PAGED DR. DIAZ, AWAITING CALL BACK.
[2018-12-18 14:36] VITALS: BP 109/50
--- NOTE | 2018-12-18 14:36 | NUR ---
PT HAD SEIZURE-LIKE ACTIVITY FOR 1 MINUTE, PT ON LEFT LATERAL SIDE. WILL ADMINISTER ATIVAN WHEN IV AVAILABLE. PAGED DR. DIAZ FOR THE SECOND TIME, AWAITING CALL BACK.
--- NOTE | 2018-12-18 14:50 | NUR ---
DISCONTINUED IV ON LT FA WITH CANNULA INTACT, NO ACTIVE BLEEDING NOTED. STARTED IV ON LT HAND 22 GA, FLUSHING WITH NO RESISTANCE.
[2018-12-18] MEDS: LORazepam 2 MG/ML VIAL IVP PRN (14:54)
--- NOTE | 2018-12-18 14:54 | NUR ---
ADMINISTERED ATIVAN PER ORDER TO PREVENT SEIZURE-LIKE ACTIVITY, PT AND MOTHER VERBALIZES UNDERSTANDING OF INDICATION AND POTENTIAL SIDE EFFECTS. WILL CONTINUE TO MONITOR.
[2018-12-18 16:00] VITALS: BP 126/71
--- NOTE | 2018-12-18 16:18 | NUR ---
PT'S VITAL SIGNS STABLE AT THIS TIME, PT HAS NO C/O PAIN. MOTHER AND SITTER AT BEDSIDE. NO EPISODES OF SEIZURE-LIKE ACTIVITY AFTER ATIVAN ADMINISTERED.
--- NOTE | 2018-12-18 18:57 | NUR ---
PT SITITNG UP IN BED WATCHING TV. NO SIGNS OF DISTRESS NOTED AT THIS TIME.
--- NOTE | 2018-12-18 19:12 | NUR ---
ENDORSED PT TO MULTIPLE TUBE WINDING MACHINE OPERATOR NURSE. PT HAS NO SIGNS OF DISTRESS AT THIS TIME.
--- NOTE | 2018-12-18 19:15 | NUR ---
PT. MOTHER AT BEDSIDE . CARE PLANS FOR THE NIGHT DISCUSSED WITH THEM AND CALL LIGHT WITH IN REACH. SITTER IN PLACE. NO COMPLAINTS DONE. PT. ABLE TO VERBALIZE NEEDS WELL. IVF SITE INTACT AND WITH GOOD BLOOD RETURN.
--- NOTE | 2018-12-18 19:51 | NUR ---
Change of shift report given, will keep helping to facilitate placement
[2018-12-18] MEDS: ARIPiprazole 10 MG TAB PO SCH (21:01)
[2018-12-18] MEDS: PARoxetine 20 MG TAB PO SCH (21:01)
--- NOTE | 2018-12-18 22:11 | NUR ---
PT. HAD A SH0WER [id number] BY FEMALE HEALTH PROMOTER IN SHOWER ROOM FOR ASSIST. PT. VERY HAPPY AFTER. WITH SITTER. WATCHING TV AT THIS TIME. ABLE TO BRUSH HAIR HERSELF AND PUT SOCKS ON. ABLE TO INVOLVE SELF IN PERSONAL CARE. ASSISTED WITH ADLS.
--- NOTE | 2018-12-18 23:27 | NUR ---
No Beds through this evening [facility] has approved patient however awaiting discharges in the am. They will keep us informed. Intake paperwork sent also to [facility]/ Ashkan Quintana/ Miah/ Sarah/ Lissett Bang/ [facility]
[2018-12-19 00:02] VITALS: BP 110/74
--- NOTE | 2018-12-19 00:48 | NUR ---
SLEEPING WELL. SITTER IN PLACE. NO SOB. NO RESTLESSNESS.
--- NOTE | 2018-12-19 03:30 | NUR ---
SLEEPING. NO SEIZURES SINCE START OF SHIFT. SITTER IN PLACE WATCHING OVER HER.
--- NOTE | 2018-12-19 05:05 | NUR ---
SLEEPING WELL. NO REPORTED OR NOTED SEIZURES THIS SHIFT. SITTER IN PLACE.
--- NOTE | 2018-12-19 07:22 | NUR ---
ENDORSED TO AM RN FOR CONTINUITY OF CARE. AWAKE AND ALERT. NO SEIZURES THIS SHIFT.
[2018-12-19 08:04] VITALS: BP 118/63
[2018-12-19] MEDS: POLYETHYLENE GLYCOL 17 GM/PKT PO SCH (08:43)
[2018-12-19] MEDS: OLANZapine 5 MG TAB PO SCH (08:43)
--- NOTE | 2018-12-19 10:00 | NUR ---
SPOKE WITH DR. MEJIA OVER THE PHONE REGARDING THE PSYCH REEVALUATION. PER DR. MEJIA, HE WILL COME TO SEE PT LATER IN THE AFTERNOON.
--- NOTE | 2018-12-19 14:48 | NUR ---
PT IV ACCIDENTALLY GOT PULLED OUT. DOES NOT WANT A NEW IV ACCESS. PT IS MEDICALLY CLEARED BY DR DIAZ. JUST AWAITING PSYCH EVAL TO RELEASE PT SO SHE CAN GO HOME. MOM AT BEDSIDE. BOTH AGREE NOT NECESSARY.
[2018-12-19 16:00] VITALS: BP 126/74
[2018-12-19] MEDS ORDERED: PAX20 PO (16:47)
[2018-12-19] MEDS ORDERED: ARIP30TA1 PO (16:48)
[2018-12-19] MEDS ORDERED: OLAN2.5T1 PO ×2 (16:54→16:55)
--- NOTE | 2018-12-19 17:30 | NUR ---
DC INSTRUCTIONS GIVEN TO PT AND MOM. 3 NEW RX GIVEN. PT AND MOM VERBALIZED UNDERSTANDING. ANSWERED ALL QUESTIONS. REMOVED PT'S IV. CANNULA INTACT AND NO BLEEDING NOTED. PT IS ALREADY DRESSED. READY TO GO. REFUSED WHEELCHAIR. WE WILL GET A LOADING SUPERVISOR WALK WITH PT.
--- NOTE | 2018-12-19 17:35 | NUR ---
PT AMBULATED TO THE [facility], ACCOMPANIED BY MOM AND DISABILITY INSURANCE CLAIM EXAMINER. PT IS IN STABLE CONDITION.
--- NOTE | 2018-12-19 19:17 | NUR ---
Change of shift report given, will continue to help facilitate placement
== END 2018-12-19 17:35 | disposition home or self-care (01) | DRG 751 ==
LOC: MED 10:39 → MTU 12-14 17:08
PROVIDERS: ADMIT Internal Medicine Pulmonary Disease; ATTEND Internal Medicine Pulmonary Disease
DX: F29 Unspecified psychosis not due to a substance or known physiological condition (principal); F20.9 Schizophrenia, unspecified; R45.851 Suicidal ideations; F84.0 Autistic disorder; N39.0 Urinary tract infection, site not specified; E66.3 Overweight; F32.9 Major depressive disorder, single episode, unspecified; G40.909 Epilepsy, unspecified, not intractable, without status epilepticus; Z68.35 Body mass index [BMI] 35.0-35.9, adult
CPT/HCPCS: 36415; 80053; 80305; 81001; 81025; 85025; 87081; 87086; 99285; G0480; G0482; J0696; J2060; J7030; J7060

== ENCOUNTER 2019-04-20 15:00 | Inpatient (IN) | payer OTHER ==
[~2019-04-20] VITALS: Ht 167.6 cm; Wt 68.0 kg
[~2019-04-20 15:00] MED LIST changes: -ABI10 PO; +ARIP30TA1 PO; -CEPH250C16 PO; +OLAN2.5T1 PO; -PAX10 PO; +PAX20 PO
[2019-04-20 15:03] VITALS: BP 133/66
--- NOTE | 2019-04-20 15:14 | NUR ---
AMB TO MOTHER TO BED 05
--- NOTE | 2019-04-20 15:49 | NUR ---
Dr. hTao is evaluating the patient at bedside.
--- NOTE | 2019-04-20 15:55 | NUR ---
[facility] Call Center aware of patient. Will assistance with placement if asssitance is needed
--- NOTE | 2019-04-20 16:00 | NUR ---
BIB MOM WITH C/O AUDITORY COMMAND HALLUCINATIONS AND SUICIDAL IDEATION STARTING TODAY. PT STATES SHE IS HEARING A VOICE TELLING HER TO "CUT HERSELF". PT CONFIRMS SUICIDAL IDEATION. PT STATES HER PLAN IS TO CUT HERSELF BUT DENIES ACTING ON COMMANDS TO HURT HERSELF, AND DENIES HOMICIDAL IDEATION. PER PT MOM, SHE HAS HAD A RECENT INCREASE IN HER VRAYLAR RX FROM 1.5MG TO 4.5MG AND HAS STOPPED TAKING HER ABILIFY. PROVIDED A PT WITH A GOWN, COLLECTED ALL PATIENT BELONGINGS AND REMOVED ALL SAFTEY HAZARDS FROM THE ROOM. SEIZURE PADS IN PLACE. BED IN LOW POSITION, SIDE RAIL UP X2.
--- NOTE | 2019-04-20 16:10 | NUR ---
Telepsychiatry consultation ordered as requested by Dr. Thao.
--- NOTE | 2019-04-20 16:24 | NUR ---
PHLEB at bedside for blood draw.
--- NOTE | 2019-04-20 16:30 | NUR ---
Telepsych MD evaluating pt with pt's mother via Telepsych at bedside.
[2019-04-20 16:57] LABS: APPEARANCE,URINE CLOUDY (CLEAR); BILIRUBIN,URINE 1+ (NEGATIVE); BLOOD, URINE 3+ (NEGATIVE); COLOR,URINE RED (YELLOW); LEUKOCYTE ESTERASE ,URINE TRACE (NEGATIVE); NITRITE, URINE POSITIVE (NEGATIVE); PH,URINE 6.5 (5.0-9.0); UGLUCOSE NEGATIVE (NEGATIVE)
[2019-04-20 17:03] LABS: BARBITURATE, URINE NEGATIVE ng/ml (NEG <=200); BENZODIAZEPINE, URINE NEGATIVE ng/mL (NEG <=200); CANNABINOID, URINE NEGATIVE ng/mL (NEG <=50); COCAINE, URINE NEGATIVE ng/mL (NEG <=300); OPIATE, URINE NEGATIVE ng/mL (NEG <=2000); PHENCYCLIDINE SCREEN,URINE NEGATIVE ng/mL (NEG <=25)
[2019-04-20] MEDS ORDERED: NITROFURANTOIN 100 MG CAP PO ONE (17:10)
[2019-04-20 17:11] LABS: BASOPHILS # (AUTO) 0.1 K/uL (0.00-0.22); BASOPHILS % (AUTO) 0.8 % (0.0-2.0); EOSINOPHILS # (AUTO) 0.3 K/uL (0-0.4); EOSINOPHILS % (AUTO) 4.7 % (0.0-4.0); HEMATOCRIT 39.3 % (36-48); HEMOGLOBIN 13.4 g/dL (12.0-16.0); LYMPHOCYTES # (AUTO) 1.8 K/uL (2.5-16.5); LYMPHOCYTES % (AUTO) 24.7 % (20.5-51.1); MEAN CORPUSCULAR HEMOGLOBIN 29 pg (27-31); MEAN CORPUSCULAR HGB CONC 34 g/dL (33-37); MEAN CORPUSCULAR VOLUME 84.4 fL (80-94); MONOCYTES # (AUTO) 0.5 K/uL (0.8-1.0); MONOCYTES % (AUTO) 7.3 % (1.7-9.3); NEUTROPHILS # (AUTO) 4.5 K/uL (1.8-7.7); NEUTROPHILS % (AUTO) 62.5 % (42.2-75.2); PLATELET COUNT (AUTO) 168 K/uL (140-450); RED BLOOD CELL COUNT(AUTO) 4.66 MIL/uL (4.20-5.40); RED CELL DISTRIBUTION WIDTH 14.7 % (11.6-13.7); WHITE BLOOD COUNT (AUTO) 7.2 K/uL (4.8-10.8)
[2019-04-20 17:29] LABS: ANION GAP 9.7 (8-16); CARBON DIOXIDE 30.4 mmol/L (21-32); CHLORIDE 105 mmol/L (98-107); GFR ARICAN-AMERICAN 86 mL/min (>90); GLUCOSE 79 mg/dL (74-106); POTASSIUM 4.1 mmol/L (3.5-5.1); SODIUM SERUM 141 mmol/L (136-145); UREA NITROGEN, BLOOD 10 mg/dL (7-18)
[2019-04-20 17:48] LABS: ACETAMINOPHEN < 0.5 ug/ml (10-30); ALBUMIN 3.7 g/dL (3.4-5.0); ASPARTATE AMINOTRANSFERASE 18 U/L (15-37); SALICYLATE < 2.8 mg/dL (2.8-20.0); THYROID STIMULATING HORMONE 0.65 uIU/mL (0.34-3.74); TOTAL BILIRUBIN 0.3 mg/dL (0.0-1.0)
[2019-04-20] MEDS ORDERED: QUEtiapine FUMARATE 25 MG TAB PO ONE (17:50)
--- NOTE | 2019-04-20 17:53 | NUR ---
Dr. Thao is re-evaluating the patient at bedside.
[2019-04-20] MEDS ORDERED: buPROPion 75 MG TAB PO ONE (17:55)
--- NOTE | 2019-04-20 17:59 | NUR ---
CALLED AZRA RODARTE FOR SEROQUEL AND BUPROPRION
--- NOTE | 2019-04-20 18:02 | NUR ---
[place] [employer] at bedside.
[2019-04-20 18:13] LABS: RBC,URINE >100 /HPF (0-5)
--- NOTE | 2019-04-20 19:02 | NUR ---
pt awake in bed, mom at bedside
--- NOTE | 2019-04-20 19:10 | NUR ---
RECIVED REPORT FROM SULMA RAYGOZA. CONTINUATION OF CARE.
[2019-04-20] MEDS ORDERED: CARI4.5C PO (19:22)
--- NOTE | 2019-04-20 19:23 | NUR ---
PT RESTING IN BED EYES OPEN. RESPONDS TO VERBAL STIMULI. PT PRESENTS CALM. RESPIRATIONS ARE EVEN AND UNLABORED. SKIN IS WARM AND DRY TO TOUCH. VSS. MOTHER AT BEDSIDE. SUICIDE PRECAUTIONS IN PLACE. SEIZURE PRECAUTIONS IN PLACE, SIDERAILS PADDED. BED LOCKED AND IN LOWEST POSITION.
--- NOTE | 2019-04-20 19:27 | NUR ---
PT GIVEN SANDWICH AND JUICE. MOTHER AT BEDSIDE.
--- NOTE | 2019-04-20 21:00 | NUR ---
PT RESTING IN BED EYES CLOSED. RESPIRATIONS ARE EVEN AND UNLABORED. SUICIDE PRECAUTIONS IN PLACE. SEIZURE PRECAUTIONS IN PLACE, SIDERAILS PADDED. BED LOCKED AND IN LOWEST POSITION. 1:1 SITTER AT BEDSIDE.
--- NOTE | 2019-04-20 21:45 | NUR ---
PT RESTING IN BED EYES OPEN. PT AAO X4. PT DENIES HAVING VISUAL OR AUDITORY HALLUCINATIONS AT THIS TIME. RESPIRATIONS ARE EVEN AND UNLABORED. SUICIDE PRECAUTIONS IN PLACE. SEIZURE PRECAUTIONS IN PLACE, SIDERAILS PADDED. BED LOCKED AND IN LOWEST POSITION. 1:1 SITTER AT BEDSIDE.
--- NOTE | 2019-04-20 22:10 | NUR ---
Patient will be admitted to care of . Admited to [facility]. Will go to room 109A. Belongings list completed. Report to SALVADOR RAYGOZA.
[2019-04-20 22:15] VITALS: BP 102/60
--- NOTE | 2019-04-20 22:15 | NUR ---
RECEIVED PT FROM ER VIA WHEELCHAIR PT IS AAOX4 AMBULATORY HL ON LEFT FA GUGE # 20 PT 5150 HOLD FOR SUICIDAL IDEATION, SHE VERBALIZED TO HEAR VOICES TO KILL HERSELF BUT PT DID NOT DO ANY ACTION, TO KILL HERSELF, PT IS ORIENTED TO THE FLOOR NOT DISTRESS NOTED AT THIS Josette MARTÍNEZ PROTOCOL WAS TAKEN AND DEN TO; LAB, INITIAL ASSESSMENT DONE
[2019-04-20] MEDS ORDERED: ACETAMINOPHEN 325 MG TAB PO PRN (23:35)
--- NOTE | 2019-04-21 00:15 | NUR ---
PT SLEEPING WELL NOT DISTRESS NOTED, SITTER AT BED SIDE ALL TIMES
[2019-04-21 04:00] VITALS: BP 94/53
--- NOTE | 2019-04-21 04:00 | NUR ---
PT SLEEPONG , , NOT DISTRESS NOTED, SITTER AT BED SIDE FOR 5150 HOLD , PT WILL BE CONTINUINING ON CLOSE MONITORING FOR SUICIDAL IDEATION
--- NOTE | 2019-04-21 06:00 | NUR ---
PT SLEEPING NOT SIGNS OF DISTRESS NOTED AT THIS TIME , PT ON CLOSE CARE FOR SUICIDAL IDEATION
--- NOTE | 2019-04-21 07:03 | NUR ---
SITTER AT BED SIDE, THEODORE FELDMAN ENDORSED [facility] NURSE FOR CONTINUE FO CARE.
--- NOTE | 2019-04-21 07:20 | NUR ---
RECEIVED REPORT FROM DIRECTOR OPERATIONS BROADCAST NURSE FOR CONTINUATION OF CARE.
[2019-04-21] MEDS: NITROFURANTOIN 100 MG CAP PO SCH ×2 (07:39→17:15)
[2019-04-21 08:00] VITALS: BP 98/58
--- NOTE | 2019-04-21 08:57 | NUR ---
PATIENT HAS BEEN SCREENED AND CATEGORIZED LOW NUTRITION RISK. PATIENT WILL BE SEEN WITHIN 7 DAYS OF ADMISSION. 04/27/[address]
--- NOTE | 2019-04-21 09:10 | NUR ---
RECEIVED REPORT FROM SHIFT NURSE FOR CONTINUITY OF CARE. [id number] PATIENT. SITTER AT BEDSIDE. MOTHER AT BEDSIDE. RESPIRATIONS EVEN, UNLABORED. PATIENT IS CALM AT THIS TIME. NO C/O PAIN. NO S/SX ACUTE DISTRESS. WILL CONTINUE TO MONITOR. Addendum: 04/21/19 at 1940 by Xiomara Martinez RN AMEND: WRONG TIME.
--- NOTE | 2019-04-21 09:30 | NUR ---
PATIENT IS RESTING IN BED, ON A 1:1 SITTER FOR 5150 HOLD FOR DANGER TO SELF. MEDICATIONS TOLERATED WELL, ONLY MEDICATION IS MACROBID FOR UTI. PATIENT REPORTS LIGHT BURNING WHEN URINATING, BUT DENIES FEELING OF FEVER. WILL CONTINUE TO MONITOR.
--- NOTE | 2019-04-21 11:09 | NUR ---
Snaker Tractor Driver Note: Basic Screen: Yes High Risk DC Screen Hermleigh: EMRE Guerra Relationship: FATHER Pre-Admission Living Arrangements: Lives with Other Prior ADL Independent Current Home Health Name/Tel: N/A Current DME/02 Name/Tel: N/A Current Hospice Name/Tel: N/A Current Dialysis Name/Tel: N/A Advance Directive No - REFUSED Physician Orders for Life Sustaining Treatment Form No Information Taught: Advance Directive Community Resources Person Taught: Patient Teaching Tools: Verbal Factors Affecting Learning: None Participation Level: Refused Evaluation: Verbalizes Understanding Needs Additional Education: No Discipline: Case Mgt/Social Svcs Tentative Discharge Plan/Destination: No Needs Identified Will require assistance post discharge: No Referred to Stonework Supervisor: No Tentative Discharge Plan Summary: Patient is a 28-year-old female admitted for suicidal ideation. Patient has PMHX fo depression, pseudoseizures, autism, and suicidal ideation. Patient was admitted from home where she lives with father and grandmother. Patient reports auditory hallucinations and current suicidal ideations. SW refused mental health resources and stated she did not want a therapist or psychiatrist. SW assessed for risk factors at home. Patient stated that she began feeling suicidal yesterday. Tentative discharge plan for patient is to be transferred to psychiatric facility. No further needs identified. Signature: DALLAS Stanley Date: Apr 21, 2019 Time: 11:09
--- NOTE | 2019-04-21 11:48 | NUR ---
PATIENT IS BEING ASSESSED BY PSYCHIATRIST DR. BURNETT FOR PSYCH EVALUATION. IV IN LEFT AC FLUSHED, PATENT. NO CONCERNS AT THIS TIME. 1:1 FOR 5150, DANGER TO SELF. WILL CONTINUE TO MONITOR.
[2019-04-21 12:00] VITALS: BP 102/70
--- NOTE | 2019-04-21 13:21 | NUR ---
PATIENT IS RESTING IN BED, ABILIFY ADDED TO PATIENTS MEDICATION LIST. 1:1 SITTER AT BEDSIDE FOR SAFETY. NO CONCERNS AT THIS TIME. WILL CONTINUE TO MONITOR.
--- NOTE | 2019-04-21 14:19 | NUR ---
Called the following facilities: [facility] s/w Amparo, packet fax for review [facility] s/w Rowena, no beds but packet fax for their transfer list [facility] s/w Jonah no beds for [facility] s/w Hemalatha, packet fax for review
--- NOTE | 2019-04-21 15:10 | NUR ---
DISCHARGE PLANNING: THIS IS A 28, Y/O FEMALE PATIENT FROM HOME, WHO CAME IN DUE TO SUICIDAL IDEATION. PAST MEDICAL HISTORY INCLUDE DEPRESSION, OBESITY, AUTISM AND PSEUDOSEIZURES. INITIAL DIAGNOSIS OF 5150 HOLD. CURRENT LABS INCLUDE WBC 7.2/ H/H 13.4/39.3, NA/K 141/4.1, BUN/CREA 10/1.0. ON ABILIFY, PAXIL AND MICROBID PO. DC PLAN TO IN PATIENT. PSYCHE CONSULT PENDING.
--- NOTE | 2019-04-21 15:50 | NUR ---
PATIENT IS RESTING IN BED, IV REMOVED DUE TO INFILTRATION WHEN FLUSHED WITH NS. PATIENT TOLERATED REMOVAL WELL. PATIENTS MOTHER IS AT BEDSIDE. 1:1 FOR 5150 AT BEDSIDE. WILL CONTINUE TO MONITOR.
[2019-04-21 16:00] VITALS: BP 101/68
--- NOTE | 2019-04-21 17:00 | NUR ---
DR. STAHL CALLED FOR PSYCH MEDICATIONS DUE TO INCREASED AGITATION. DR. STAHL ORDERED ADDITIONAL PSYCH MEDS TO BE DUE HS. 1:1 MONITORING FOR SAFETY PER MD'S ORDERS. WILL CONTINUE TO MONITOR.
--- NOTE | 2019-04-21 19:08 | NUR ---
REPORT GIVEN TO RAIL BENDER NURSE FOR CONTINUATION OF CARE.
--- NOTE | 2019-04-21 19:10 | NUR ---
RECEIVED REPORT FROM AM SHIFT NURSE FOR CONTINUITY OF CARE. [id number] PATIENT. SITTER AT BEDSIDE. MOTHER AT BEDSIDE. RESPIRATIONS EVEN, UNLABORED. PATIENT IS CALM AT THIS TIME. NO C/O PAIN. NO S/SX ACUTE DISTRESS. WILL CONTINUE TO MONITOR.
[2019-04-21 20:00] VITALS: BP 103/56
--- NOTE | 2019-04-21 20:08 | NUR ---
There are still no beds available at any of the contracted facilities. Will endorse to pm shift to continue to seek placement throughout their shift
[2019-04-21] MEDS: ARIPiprazole 10 MG TAB PO SCH (20:10)
[2019-04-21] MEDS: QUEtiapine FUMARATE 100 MG TAB PO SCH (20:11)
[2019-04-21] MEDS: PARoxetine 20 MG TAB PO SCH (20:11)
--- NOTE | 2019-04-21 21:00 | NUR ---
PATIENT CALM AND IN STABLE CONDITION. NO C/O PAIN. NO S/SX ACUTE DISTRESS. SITTER AT BEDSIDE. WILL CONTINUE TO MONITOR.
--- NOTE | 2019-04-21 23:31 | NUR ---
PATIENT ASLEEP AND IN STABLE CONDITION. NO C/O PAIN. NO S/SX ACUTE DISTRESS. SITTER AT BEDSIDE. WILL CONTINUE TO MONITOR.
--- NOTE | 2019-04-22 01:31 | NUR ---
PATIENT ASLEEP AND IN STABLE CONDITION. NO C/O PAIN. NO S/SX ACUTE DISTRESS. SITTER AT BEDSIDE. WILL CONTINUE TO MONITOR.
--- NOTE | 2019-04-22 03:36 | NUR ---
PATIENT IS ASLEEP AND IN STABLE CONDITION. NO C/O PAIN. NO S/SX ACUTE DISTRESS. SITTER AT BEDSIDE. WILL CONTINUE TO MONITOR.
--- NOTE | 2019-04-22 05:46 | NUR ---
PATIENT ASLEEP AND IN STABLE CONDITION. NO C/O PAIN. NO S/SX ACUTE DISTRESS. SITTER AT BEDSIDE. CALL LIGHT WITHIN REACH. WILL CONTINUE TO MONITOR.
--- NOTE | 2019-04-22 07:21 | NUR ---
ENDORSED PATIENT TO AM SHIFT NURSE IN STABLE CONDITION FOR CONTINUITY OF CARE.
--- NOTE | 2019-04-22 07:23 | NUR ---
RECEIVED REPORT FROM NIGHT NURSE. PATIENT IN STABLE CONDITION. PATIENT AWAKE, ALERT AND ORIENTED X4. RESPIRATION EVEN AND UNLABORED. INTRODUCED SELF. BED IN LOW POSITION. SITTER AT BEDSIDE. CALL LIGHT WITHIN REACH.
[2019-04-22 08:00] VITALS: BP 107/62
[2019-04-22] MEDS: NITROFURANTOIN 100 MG CAP PO SCH ×2 (08:06→17:21)
[2019-04-22] MEDS: busPIRone 5 MG TAB PO SCH ×3 (08:06→17:21)
[2019-04-22] MEDS ORDERED: buPROPion 150 MG TABER PO SCH (09:00)
--- NOTE | 2019-04-22 09:21 | NUR ---
[facility] day shift aware of need for inpatient psych placement. Will continue to follow up with contracted facilities for bed availability.
--- NOTE | 2019-04-22 09:30 | NUR ---
ROUNDS MADE. PATIENT WITH 1 TO 1 SITTER. PATIENT DENIES HAVING SUICIDAL IDEATION OR THOUGHTS AT THIS TIME. AM MEDICATIONS GIVEN AND TOLERATED WELL. PATIENT IN BED, AAOX4. RESTING QUIETLY.
--- NOTE | 2019-04-22 11:14 | NUR ---
PT WITH 1 TO 1 SITTER AT THIS TIME. NO S/S OF DISTRESS NOTED. DENIES SI THOUGHTS.
--- NOTE | 2019-04-22 12:25 | NUR ---
[facility] s/w Dania no beds [facility] s/w Deborah no beds but packet faxed for review [facility] s/w Hemalatha no beds
--- NOTE | 2019-04-22 12:40 | NUR ---
[facility] s/w Amparo, no beds but packet fax for pending discharges
--- NOTE | 2019-04-22 12:44 | NUR ---
[facility] s/w Sung. Packet faxed for wait list
--- NOTE | 2019-04-22 13:15 | NUR ---
PATIENT IS AWAKE, ALERT AND ORIENTED X4. MOTHER AT BEDSIDE. CONTINUES TO HAVE SITTER 1 TO 1 FOR CLOSE MONITORING. PATIENT DENIES SI AT THIS TIME.
--- NOTE | 2019-04-22 14:31 | NUR ---
[facility] s/w Radha. Patient decline at their facility due to unable to safely managed
--- NOTE | 2019-04-22 15:30 | NUR ---
PATIENT IS AWAKE, ALERT AND ORIENTED X4. MOTHER AT BEDSIDE. CONTINUES TO HAVE SITTER 1 TO 1 FOR CLOSE MONITORING. PATIENT DENIES SI AT THIS TIME.
[2019-04-22 16:00] VITALS: BP 117/71
--- NOTE | 2019-04-22 17:30 | NUR ---
ROUNDS MADE. PATIENT IS AWAKE, ALERT AND ORIENTED X4. MOTHER AT BEDSIDE. CONTINUES TO HAVE SITTER 1 TO 1 FOR CLOSE MONITORING. PATIENT DENIES SI AT THIS TIME.
--- NOTE | 2019-04-22 18:31 | NUR ---
PT REMAINS STABLE. SITTER 1:1 CONTINUED.
--- NOTE | 2019-04-22 19:00 | NUR ---
REPORT GIVEN TO NIGHT NURSE. PATIENT IN STABLE CONDITION.
[2019-04-22] MEDS: ARIPiprazole 10 MG TAB PO SCH (20:08)
[2019-04-22] MEDS: PARoxetine 20 MG TAB PO SCH (20:08)
[2019-04-22] MEDS: QUEtiapine FUMARATE 100 MG TAB PO SCH (20:08)
--- NOTE | 2019-04-22 20:35 | NUR ---
SPOKE TO MYRTLE FROM [facility] REGARDING PLACEMENT. PATIENT WILL BE ACCEPTED UNDER [facility] AND ADMITTED IN UNIT 200 A. MYRTLE SAID TO CALL THE STATION AT [phone] TO GIVE REPORT WHEN READY.
--- NOTE | 2019-04-22 20:40 | NUR ---
PAGED DR. DOYLE REGARDING DISCHARGE AND AWAITING CALL BACK.
--- NOTE | 2019-04-22 20:45 | NUR ---
SPOKE TO IDALMIS LOPEZ AT [facility] AND GAVE REPORT. SHE SAID THE PATIENT CAN COME ANYTIME TONIGHT AND TO JUST INFORM HER ONCE TRANSPORT LEAVES [place].
--- NOTE | 2019-04-22 20:50 | NUR ---
SPOKE TO DR. DOYLE WITH DISCHARGE ORDERS TO TRANSFER TO [place]. PAGED DR. MEJIA AND AWAITING CALL BACK.
--- NOTE | 2019-04-22 21:30 | NUR ---
LEFT A MESSAGE ON DR. MEJIA CELL PHONE [phone] REGARDING TRANSFER OF PATIENT TO [facility].
[2019-04-22 21:33] VITALS: BP 122/84
--- NOTE | 2019-04-22 22:25 | NUR ---
PATIENT LEFT VIA GURNEY WITH 2 TRANSPORT MEMBERS FOR [facility]. MOTHER MADE AWARE. CALLED [facility] TO LET THEM KNOW PATIENT IS ON THE WAY. PATIENT LEFT IN STABLE CONDITION. RESPIRATIONS EVEN, UNLABORED. SKIN ASSESSMENT COMPLETED. SKIN WARM, DRY AND INTACT. NO C/O PAIN. NO S/SX ACUTE DISTRESS. DISCHARGE PAPERS SENT WITH PATIENT.
== END 2019-04-22 22:25 | DRG 756 ==
LOC: MED 15:00 → MTU 21:20
PROVIDERS: ADMIT Internal Medicine; ATTEND Internal Medicine
DX: R44.0 Auditory hallucinations (principal); F44.5 Conversion disorder with seizures or convulsions; R45.851 Suicidal ideations; N39.0 Urinary tract infection, site not specified; F32.9 Major depressive disorder, single episode, unspecified; E66.9 Obesity, unspecified; F41.9 Anxiety disorder, unspecified; F84.0 Autistic disorder; Z68.24 Body mass index [BMI] 24.0-24.9, adult
CPT/HCPCS: 36415; 80053; 80305; 81001; 84443; 85025; 87081; 87086; 99285; G0480; G0482

== ENCOUNTER 2019-04-28 16:50 | Emergency (ER) | payer OTHER ==
[~2019-04-28] VITALS: Ht 170.2 cm; Wt 132.0 kg
[2019-04-28 17:02] VITALS: BP 120/89
--- NOTE | 2019-04-28 17:06 | NUR ---
URINE CUP HANDED TO PT
--- NOTE | 2019-04-28 18:00 | NUR ---
28 Y/O FEMALE BIB MOTHER. PT'S MOTHER STATES PT HAS A C/C OF WEAKNESS/BURNING AND ITCHING WITH URINATION AND CLOUDY URINE/ PT FEELING DEPRESSED/POLYDIPSIA X 1 DAY . PT'S MOTHER STATES PT WAS IN SEEN IN [facility] 1 WEEK AGO FOR SIMILAR S/SX AND WAS GIVEN MACROBID, WHICH THE PT FINISHED THIS MORNING ON 04/28/2019. PT'S MOTHER STATES PT STARTED COUGHING AND SNEEZING. DENIES N/V/D; SKIN IS PINK/WARM/DRY; AAOX4 WITH EVEN AND STEADY GAIT;PT DENIES ANY FEVER, CP, SOB, AT THIS TIME; PATIENT STATES PAIN OF 0/10 AT THIS TIME; VSS; PATIENT POSITIONED FOR COMFORT; HOB ELEVATED; BEDRAILS UP X2; BED DOWN AND LOCKED. MEDICAL HX: AUTISM/DEPRESSION/UTI/ANXIETY NKA
[2019-04-28 18:25] LABS: APPEARANCE,URINE CLEAR (CLEAR); BILIRUBIN,URINE NEGATIVE (NEGATIVE); BLOOD, URINE NEGATIVE (NEGATIVE); COLOR,URINE YELLOW (YELLOW); LEUKOCYTE ESTERASE ,URINE TRACE (NEGATIVE); NITRITE, URINE NEGATIVE (NEGATIVE); UGLUCOSE NEGATIVE (NEGATIVE)
--- NOTE | 2019-04-28 18:38 | NUR ---
MARIO SHAW AT BEDSIDE EXAMINING PT
--- NOTE | 2019-04-28 18:51 | NUR ---
PT RESTING IN BED IN POSITION OF COMFORT, BED LOW AND LOCKED WITH 2 SIDERAILS UP. PT'S MOTHER AT [facility]. WILL CONTINUE TO MONITOR.
[2019-04-28 19:13] VITALS: BP 122/94
--- NOTE | 2019-04-28 19:13 | NUR ---
Patient discharged with v/s stable. Written and verbal after care instructions given and explained. Patient alert, oriented and verbalized understanding of instructions. Ambulatory with steady gait. All questions addressed prior to discharge. ID band removed. Patient advised to follow up with PMD. Rx of PROMETHAZINE AND DIFLUCAN given. Patient educated on indication of medication including possible reaction and side effects. Opportunity to ask questions provided and answered.
== END 2019-04-28 19:13 | disposition home or self-care (01) ==
LOC: MED 16:50
DX: L29.2 Pruritus vulvae (principal); J06.9 Acute upper respiratory infection, unspecified
CPT/HCPCS: 81003; 81025; 99283

== ENCOUNTER 2019-07-07 15:47 | Inpatient (IN) | payer OTHER ==
[~2019-07-07] VITALS: Ht 172.7 cm; Wt 136.1 kg
[2019-07-07 15:49] VITALS: BP 135/80
--- NOTE | 2019-07-07 15:50 | NUR ---
PT AMBULATED TO BED 6, STEADY GAIT.
--- NOTE | 2019-07-07 16:01 | NUR ---
CONTACT INFO MOTHER- JONATHAN
--- NOTE | 2019-07-07 16:01 | NUR ---
PT UNABLE TO PROVIDE URINE AT THIS TIME, URINE CUP AT BEDSIDE.
--- NOTE | 2019-07-07 16:02 | NUR ---
Dr. Thao is evaluating the patient at bedside.
[2019-07-07] MEDS ORDERED: RISP0.5T3 PO (16:11)
[2019-07-07] MEDS ORDERED: FLUO10CA21 PO (16:11)
[2019-07-07] MEDS ORDERED: OXCA300T PO (16:11)
--- NOTE | 2019-07-07 16:15 | NUR ---
Telepsychiatry consultation ordered as requested by Dr. Thao.
--- NOTE | 2019-07-07 16:16 | NUR ---
29 YO FEMALE CO OF SI. PT STATES THAT SHE WANTS TO KILL HERSELF BY CUTTING HER WRISTS. PT HAS NO SPECIFIC PLAN, BUT STATES THAT IT SEEMS TO BE THE EASIEST WAY. PT HAS HX OF AUTISM AND SCHITZO. MOM STATES THAT SHE ALOS STEPPED ON A NAIL THE OTHER DAY. NO REDNESS OR SWELLING NOTED ON HER FOOT.
--- NOTE | 2019-07-07 16:24 | NUR ---
LAB AT BEDSIDE.
[2019-07-07 16:37] LABS: BASOPHILS # (AUTO) 0.1 K/uL (0.00-0.22); EOSINOPHILS # (AUTO) 0.2 K/uL (0-0.4); EOSINOPHILS % (AUTO) 2.9 % (0.0-4.0); HEMOGLOBIN 14.3 g/dL (12.0-16.0); LYMPHOCYTES # (AUTO) 1.5 K/uL (2.5-16.5); LYMPHOCYTES % (AUTO) 22.4 % (20.5-51.1); MEAN CORPUSCULAR HEMOGLOBIN 29 pg (27-31); MEAN CORPUSCULAR HGB CONC 33 g/dL (33-37); MEAN CORPUSCULAR VOLUME 87.9 fL (80-94); MONOCYTES # (AUTO) 0.5 K/uL (0.8-1.0); MONOCYTES % (AUTO) 8.1 % (1.7-9.3); NEUTROPHILS # (AUTO) 4.3 K/uL (1.8-7.7); NEUTROPHILS % (AUTO) 65.6 % (42.2-75.2); PLATELET COUNT (AUTO) 169 K/uL (140-450); RED BLOOD CELL COUNT(AUTO) 4.89 MIL/uL (4.20-5.40); RED CELL DISTRIBUTION WIDTH 14.6 % (11.6-13.7); WHITE BLOOD COUNT (AUTO) 6.6 K/uL (4.8-10.8)
[2019-07-07 16:54] LABS: ALBUMIN 3.8 g/dL (3.4-5.0); ANION GAP 10.3 (8-16); ASPARTATE AMINOTRANSFERASE 20 U/L (15-37); CARBON DIOXIDE 31.1 mmol/L (21-32); CHLORIDE 104 mmol/L (98-107); CREATININE 1.2 mg/dL (0.6-1.3); GFR ARICAN-AMERICAN 69 mL/min (>90); GLUCOSE 89 mg/dL (74-106); POTASSIUM 4.4 mmol/L (3.5-5.1); SALICYLATE < 2.8 mg/dL (2.8-20.0); SODIUM SERUM 141 mmol/L (136-145); TOTAL BILIRUBIN 0.3 mg/dL (0.0-1.0); UREA NITROGEN, BLOOD 13 mg/dL (7-18)
[2019-07-07 16:55] LABS: ACETAMINOPHEN < 0.5 ug/ml (10-30)
[2019-07-07] MEDS ORDERED: traZODone 50 MG TAB PO PRN (18:35)
--- NOTE | 2019-07-07 18:37 | NUR ---
[place] PD Officer Vanda is evaluating the patient for a 5150 hold at bedside.
[2019-07-07 18:42] LABS: APPEARANCE,URINE CLEAR (CLEAR); BILIRUBIN,URINE NEGATIVE (NEGATIVE); BLOOD, URINE NEGATIVE (NEGATIVE); COLOR,URINE YELLOW (YELLOW); LEUKOCYTE ESTERASE ,URINE TRACE (NEGATIVE); NITRITE, URINE NEGATIVE (NEGATIVE); PH,URINE 6.5 (5.0-9.0); UGLUCOSE NEGATIVE (NEGATIVE)
[2019-07-07 18:55] LABS: BARBITURATE, URINE NEGATIVE ng/ml (NEG <=200); BENZODIAZEPINE, URINE NEGATIVE ng/mL (NEG <=200); CANNABINOID, URINE NEGATIVE ng/mL (NEG <=50); COCAINE, URINE NEGATIVE ng/mL (NEG <=300); OPIATE, URINE NEGATIVE ng/mL (NEG <=2000); PHENCYCLIDINE SCREEN,URINE NEGATIVE ng/mL (NEG <=25)
--- NOTE | 2019-07-07 19:12 | NUR ---
REPORT RECEIVED FROM ELFEGO RAYGOZA, TRANSFER OF CARE AT THIS TIME. PT ALERT AND AWAKE, BREATHING EVEN AND UNLABORED, SITTER AT BEDSIDE. PT IS EATING DINNER TRAY
--- NOTE | 2019-07-07 20:30 | NUR ---
PATIENT ALERT AND AWAKE, BREATHING EVEN AND UNLABORED
--- NOTE | 2019-07-07 21:07 | NUR ---
Spool Carrier called for Seroquel.
[2019-07-07] MEDS: QUEtiapine FUMARATE 25 MG TAB PO SCH (21:25)
--- NOTE | 2019-07-07 21:38 | NUR ---
PATIENT RESTING WITH EYES CLOSED, BREATHING EVEN AND UNLABORED
--- NOTE | 2019-07-07 23:00 | NUR ---
PATIENT RESTING WITH EYES CLOSED, BREATHING EVEN AND UNLABORED. SITTER REMAINS AT BEDSIDE
--- NOTE | 2019-07-08 | NUR ---
PATIENT RESTING WITH EYES CLOSED, BREATHING EVEN AND UNLABORED. SITTER REMAINS AT BEDSIDE
--- NOTE | 2019-07-08 01:00 | NUR ---
PATIENT RESTING WITH EYES CLOSED, BREATHING EVEN AND UNLABORED. SITTER REMAINS AT BEDSIDE
[2019-07-08] MEDS ORDERED: ACETAMINOPHEN 325 MG TAB PO PRN (01:45)
--- NOTE | 2019-07-08 01:51 | NUR ---
PATIENT RESTING WITH EYES CLOSED, BREATHING EVEN AND UNLABORED. SITTER REMAINS AT BEDSIDE
[2019-07-08 02:25] VITALS: BP 115/68
--- NOTE | 2019-07-08 02:25 | NUR ---
PT ARRIVED FROM ER DEPT VIA WHEELCHAIR. RECEIVED REPORT FROM RADHA (ER NURSE). PT IS AWAKE, ALERT, ORIENTED. AMBULATORY. ABLE TO MAKE NEEDS KNOWN. CALM AND COOPERATIVE TO CARE. DENIES ANY PAIN OR DISCOMFORT. RESPIRATIONS EVEN AND UNLABORED TO ROOM AIR. SKIN IS WARM, DRY, AND INTACT. ABDOMEN IS SOFT AND NON-TENDER. PT ORIENTED TO ROOM. MRSA SWAB DONE. VITAL SIGNS TAKEN. PLAN OF CARE DISCUSSED. SAFETY MEASURES IN PLACE. SITTER AT BEDSIDE. WILL CONTINUE TO MONITOR.
--- NOTE | 2019-07-08 02:25 | NUR ---
Patient will be admitted to care of Dr Ramirez. Admited to [facility]. Will go to room 109B. Belongings list completed. Report to Jerome RAYGOZA.
--- NOTE | 2019-07-08 03:15 | NUR ---
At this time there are no vacancy still at the following facilities Vern Harris-Hung Macias [facility]-Micaela Yusuf [facility]iana Dooley- Rito Manuel charge nurse made aware.
--- NOTE | 2019-07-08 04:00 | NUR ---
VITAL SIGNS WITHIN NORMAL LIMITS. PT RESTING. NO S/SX OF DISTRESS NOTED. SAFETY MEASURES IN PLACE. WILL CONTINUE TO MONITOR.
--- NOTE | 2019-07-08 07:05 | NUR ---
Received report from shift boss. There are no beds at this time. [facility] still looking for placement.
--- NOTE | 2019-07-08 07:13 | NUR ---
GAVE REPORT TO DAY SHIFT NURSE FOR CONTINUITY OF CARE. PT IS IN STABLE CONDITION.
--- NOTE | 2019-07-08 07:37 | NUR ---
RECEIVED REPORT FROM PLAYER DEVELOPMENT MANAGER RN FOR CONTINUITY OF CARE. PT IS AAOX4. AMBULATORY. ABLE TO MAKE NEEDS KNOWN. CALM AND COOPERATIVE TO CARE. DENIES ANY PAIN OR DISCOMFORT AT THIS TIME. RESPIRATIONS EVEN AND UNLABORED TO ROOM AIR. SKIN IS WARM, DRY, AND INTACT. ABDOMEN IS SOFT AND NON-TENDER. VITAL SIGNS TAKEN. PLAN OF CARE DISCUSSED WITH PT AND PT VERBALIZED UNDERSTANDING. SAFETY MEASURES IN PLACE. SITTER AT BEDSIDE. WILL MONITOR PT CLOSELY THROUGHOUT THE SHIFT.
[2019-07-08 08:00] VITALS: BP 104/60
[2019-07-08] MEDS: QUEtiapine FUMARATE 25 MG TAB PO SCH (09:00)
[2019-07-08] MEDS ORDERED: FLUoxetine 10 MG CAP PO SCH (09:00)
--- NOTE | 2019-07-08 09:08 | NUR ---
PATIENT HAS BEEN SCREENED AND CATEGORIZED LOW NUTRITION RISK. PATIENT WILL BE SEEN WITHIN 7 DAYS OF ADMISSION. 07/14/[address]
[2019-07-08] MEDS: FLUoxetine 10 MG CAP PO SCH (09:13)
[2019-07-08] MEDS: risperiDONE 1 MG TAB PO SCH ×2 (09:13→21:19)
[2019-07-08] MEDS: OXcarbazepine 150 MG TAB PO SCH ×2 (09:13→21:19)
--- NOTE | 2019-07-08 09:20 | NUR ---
ADMINISTERED MORNING MEDS TO PT. PT TOLERATED WELL. ALL NEEDS MET. WILL CONTINUE TO ROUND ON PT.
--- NOTE | 2019-07-08 10:00 | NUR ---
CONTACTED DR. MEJIA AND NOTIFIED WITH THE CONSULT. PER MD, HE WILL COME TO SEE PT TODAY. DR. IRBY ON ROUNDS AND WAS NOTIFIED.
--- NOTE | 2019-07-08 10:59 | NUR ---
TAPE RECORDER REPAIRER NOTE: Basic Screen: Yes High Risk DC Screen [place]: EMRE Guerra Relationship: FATHER Pre-Admission Living Arrangements: Lives with Other Prior ADL Independent Current Home Health Name/Tel: N/A Current DME/02 Name/Tel: N/A Current Hospice Name/Tel: N/A Current Dialysis Name/Tel: N/A Healthcare Decision Maker: Next of Kin Other: FATHER - EMRE SOUZA Information Taught: Community Resources Person Taught: Patient Teaching Tools: Community Resources Computer Generated Print Verbal Factors Affecting Learning: None Participation Level: Refused Evaluation: Verbalizes Understanding Needs Additional Education: No Discipline: Case Mgt/Social Svcs Tentative Discharge Plan/Destination: Other Will require assistance post discharge: No Referred to Biological Sciences Professor: No Tentative Discharge Plan Summary: PATIENT IS A 29-YEAR-OLD FEMALE ADMITTED FOR 5150 AND SUICIDAL IDEATION. PATIENT HAS PMHX OF BIPOLAR DISORDER, AUTISM, SI, AND AH. PATIENT WAS ADMITTED FROM HOME WHERE SHE LIVES WITH HER FATHER, GRANDMOTHER, AND SISTER. SW MET WITH PATIENT AT BEDSIDE TO VERIFY DEMOGRAPHICS. PATIENT IS WELL-KNOWN TO HOSPITAL AND SW. SW PROVIDED COUNSELING AND USED MOTIVATIONAL INTERVIEWING TECHNIQUES TO PATIENT. PATIENT HAD PLEASANT AFFECT BUT WAS SHORT IN RESPONSES. PATIENT STATED THAT SHE WAS EXPERIENCING SUICIDAL IDEATIONS AND AUDITORY HALLUCINATIONS TO CUT HERSELF. PATIENT STATED THAT SHE IS CURRENTLY FEELING SUICIDAL AND EXPERIENCING AUDITORY HALLUCINATIONS. PATIENT STATED SHE HAS A PSYCHIATRIST BUT SHE IS UNABLE TO RECALL HIS NAME. SW SPOKE WITH PATIENT REGARDING FOLLOWING UP WITH [facility] FOR THERAPY. PATIENT STATED SHE WAS NOT INTERESTED AND REFUSED MENTAL HEALTH RESOURCES. PATIENT STATED SHE IS INDEPENDENT WITH ADLS AND REPORTED NO SUBSTANCE ABUSE. SW ASSESSED FOR RISK FACTORS AT HOME AND EXPLORED FAMILY DYNAMICS. PATIENT STATED THAT SHE SOMETIMES FEELS DEPRESSED AND HEARS VOICES TO CUT HERSELF. TENTATIVE DISCHARGE PLAN IS FOR PATIENT TO BE DISCHARGED TO INPATIENT PSYCHIATRIC FACILITY PENDING PSYCHIATRIC CONSULT. Signature: DALLAS KUMAR Date: July 08, 2019 Time: 10:58 Addendum: 07/11/19 at 1359 by Shahid AJ KM CONTACTED [facility] AND SPOKE TO AMBER [phone]. AMBER STATED THAT THERE IS NO BED AVAILABILITY IN FACILITIES THAT SHE HAS CONTACTED. KM WILL FOLLOW UP. Addendum: 07/11/19 at 1524 by Shahid AJ KM SPOKE WITH AMBER FROM [facility] [phone]. PER AMBER THE FOLLOWING FACILITIES ARE PENDING. [facility] AMBER STATED THAT [facility] HAD DENIED HER. AMBER STATED THAT SHE WILL CONTINUE SEEKING PLACEMENT FOR PATIENT. Addendum: 07/15/19 at 1125 by Shahid AJ KM CONTACTED EMRE SOUZA [phone]. SW HAD DISCUSSION WITH DISCHARGE PLAN WITH EMRE SOUZA. ART PROVIDED [facility] CONTACT BALDO TO [phone]. ART PROVIDED PATIENT'S PSYCHIATRIST: DR. INIGUEZ AT [facility]. ART STATED THAT HE WOULD LIKE FOR PATIENT TO RETURN HOME BUT WOULD LIKE ASSISTANCE WITH DAY PROGRAMS. ART ALSO STATED THAT HE WOULD BE INTERESTED IN A THERAPIST THAT SPECIALIZES IN AUTISM. KM REFERRED ART TO [facility] WORKER BALDO [phone] TO INQUIRE ABOUT DAY PROGRAMS AVAILABLE. KM ALSO PROVIDED PHONE NUMBER TO [facility] WHERE HE CAN BE ASSISTED IN FINDING A THERAPIST WHO SPECIALIZES IN AUTISM. ART STATED HE WILL CALL BALDO AND FOLLOW UP WITH [facility] AND IS AMENABLE TO PATIENT RETURNING HOME. Addendum: 07/15/19 at 1129 by Shahid AJ KM CONTACTED BALDO GHOTRA [phone] - [facility] WORKER FOR PATIENT. KM LEFT . KM WILL FOLLOW UP. Addendum: 07/15/19 at 1132 by Shahid Munoz SS KM INFORMED DR. MEJIA OF DISCHARGE PLAN. Addendum: 07/15/19 at 1321 by Shahid Munoz SS KM CONTACTED BALDOMIRYAM GHOTRA - [facility] WORKER [phone]. PER BALDO, SHE HAS OFFERED FAMILY DAY PROGRAMS BUT RECOMMENDED THAT PATIENT FINDS A PSYCHIATRIST AND THERAPIST PRIOR TO ENROLLING IN DAY PROGRAMS. KM PROVIDED PSYCHIATRIST'S INFORMATION TO BALDO AND INFORMED BALDO THAT PATIENT'S FATHER STATED HE WOULD CONTACT [facility] DEPARTMENT TO FIND A THERAPIST WHO SPECIALIZED WITH AUTISM. BALDO STATED THAT MANY DAY PROGRAMS ARE CLOSED DUE TO COVID BUT SHE WILL CONTACT FAMILY ONCE MORE TO PROVIDE RESOURCES. BALDO STATED THAT FAMILY WAS PROVIDED RESOURCES PRIOR, BUT DID NOT FOLLOW UP WITH BALDO. PER BALDO, SHE WAS UNAWARE OF HOSPITALIZATION OR THAT PATIENT HAS A PSYCHIATRIST. KM PROVIDED ALL PERTINENT INFORMATION TO BALDO AND BALDO STATED SHE WOULD CONTACT PATIENT'S FATHER, EMRE SOUZA. KM WILL FOLLOW UP NEEDED.
--- NOTE | 2019-07-08 11:09 | NUR ---
PT RESTING IN BED. ALL NEEDS MET. WILL CONTINUE TO ROUND ON PT. SITTER 1:1 AT BEDSIDE.
--- NOTE | 2019-07-08 13:24 | NUR ---
PT IN RESTROOM. SITTER AT BATHROOM DOOR ESCORTING PT. ALL NEEDS CURRENTLY MET. WILL CONTINUE TO ROUND FREQUENTLY ON PT.
--- NOTE | 2019-07-08 15:54 | NUR ---
PT RESTING IN BED. ALL NEEDS CURRENTLY MET. WILL CONTINUE TO ROUND FREQUENTLY ON PT. SITTER 1:1 AT BEDSIDE.
[2019-07-08 16:00] VITALS: BP 98/64
--- NOTE | 2019-07-08 17:02 | NUR ---
RECEIVED REPORT FROM DAY SHIFT RN, DANIEL, FOR CONTINUITY OF CARE. PT IS AAOX4. AMBULATORY. ABLE TO MAKE NEEDS KNOWN. DENIES ANY PAIN. RESPIRATIONS EVEN AND UNLABORED TO ROOM AIR. SKIN IS WARM, DRY, AND INTACT. PLAN OF CARE DISCUSSED WITH PT AND PT VERBALIZED UNDERSTANDING. SAFETY MEASURES IN PLACE. SITTER AT BEDSIDE. WILL MONITOR PT CLOSELY THROUGHOUT THE SHIFT.
--- NOTE | 2019-07-08 17:03 | NUR ---
ENDORSED PT TO SIXTO RAYGOZA FOR CONTINUITY FOR CONTINUITY OF CARE. PT IN STABLE CONDITION AT THIS TIME.
--- NOTE | 2019-07-08 19:15 | NUR ---
ENDORSED TO GRADES 1 THRU 6 HOME TEACHER RNTERRY, FOR CONTINUITY OF CARE.
--- NOTE | 2019-07-08 19:16 | NUR ---
RECD. RESTING IN BED, AWAKE, A/OX3-4. RESPIRATION EVEN AND UNLABORED. NO IV LINE, REFUSED IV INSERTION. STATED SHE IS HEARING VOICES TELLING HER TO KILL SELF. 1:1 SITTER AT THE DOOR MONITORING PATIENT FOR SAFETY. PLAN OF CARE FOR THE SHIFT DISCUSSED. VERBALIZED UNDERSTANDING. DENIES PAIN 0/10.
--- NOTE | 2019-07-08 19:30 | NUR ---
DR. HAN, WILL FOLLOW UP WITH ANY NEW ORDER.
--- NOTE | 2019-07-08 21:00 | NUR ---
Patient's Plan of Care was discussed and reviewed with ELECTRONIC TECH: TERRY GARCIA
--- NOTE | 2019-07-08 21:11 | NUR ---
DUE PO MEDICATIONS GIVEN, COOPERATIVE.
[2019-07-09] VITALS: BP 92/45
--- NOTE | 2019-07-09 | NUR ---
SLEEPING COMFORTABLY IN BED.
--- NOTE | 2019-07-09 04:00 | NUR ---
STILL SLEEPING COMFORTABLY IN BED. SITTER MONITORING NEAR DOOR.
--- NOTE | 2019-07-09 05:56 | NUR ---
There are still no beds at any of the designated facilities. [facility] for [facility] list
--- NOTE | 2019-07-09 07:20 | NUR ---
RECEIVED REPORT FROM SUPERVISOR ABATTOIR RNTERRY, FOR CONTINUITY OF CARE. PT IS AAOX4. AMBULATORY. ABLE TO MAKE NEEDS KNOWN. DENIES ANY PAIN. RESPIRATIONS EVEN AND UNLABORED TO ROOM AIR. SKIN IS WARM, DRY, AND INTACT. PLAN OF CARE DISCUSSED WITH PT AND PT VERBALIZED UNDERSTANDING. SAFETY MEASURES IN PLACE. SITTER AT BEDSIDE. WILL MONITOR PT CLOSELY THROUGHOUT THE SHIFT.
--- NOTE | 2019-07-09 07:20 | NUR ---
STILL SLEEPING COMFORTABLY IN BED. NEW SITTER MONITORING AT THE DOOR. SAFETY MAINTAINED DURING SHIFT. ENDORSED TO AM SHIFT NURSE FOR CONTINUITY OF CARE.
[2019-07-09 08:00] VITALS: BP 116/62
--- NOTE | 2019-07-09 09:55 | NUR ---
FAXED PACKET TO [facility] AND [facility] Addendum: 07/09/19 at 1047 by Poly Goldman CM SPOKE TO SHEY IN ADMISSIONS AT [facility], THE PATIENTS PACKET IS IN REVIEW AND WILL FOLLOW UP WITH ME ONCE FINISHED. Addendum: 07/09/19 at 1304 by Poly Goldman CM FOLLOWED UP WITH SHEY AT [facility], THEY ARE STILL REVIEWING PATIENT PACKET, SHE SAID TO CALL BACK WITHIN 15 MINS Addendum: 07/09/19 at 1345 by Poly Goldman CM [facility] DENIED PATIENT BECAUSE PATIENT HAS PAST HISTORY OF AUTISM. THIS FACILITY DOES NOT ACCEPT AUTISTIC PATIENTS Addendum: 07/09/19 at 1415 by Poly Goldman CM FOLLOWED UP WITH [facility], NO FEMALE BEDS AVAILABLE BUT PATIENT IS ON WAIT LIST
--- NOTE | 2019-07-09 10:00 | NUR ---
MORNING MEDICATIONS GIVEN. NO SIGNS OF DISTRESS NOTED. ASSESSED PT., PT. VERBALIZES STILL HEARING VOICES. WILL CONTINUE TO MONITOR.
[2019-07-09] MEDS: OXcarbazepine 150 MG TAB PO SCH ×2 (10:14→20:39)
[2019-07-09] MEDS: risperiDONE 1 MG TAB PO SCH ×2 (10:14→20:39)
[2019-07-09] MEDS: FLUoxetine 10 MG CAP PO SCH (10:15)
--- NOTE | 2019-07-09 12:00 | NUR ---
PT. IS IN BED WITH LUNCH. NO SIGNS OF DISTRESS NOTED. WILL CONTINUE TO MONITOR.
--- NOTE | 2019-07-09 14:56 | NUR ---
Psych referral re-faxed tot he following facilities: [facility]
--- NOTE | 2019-07-09 15:30 | NUR ---
PT. IS ASLEEP IN BED. NO SIGNS OF DISTRESS NOTED. WILL CONTINUE TO MONITOR.
[2019-07-09 16:00] VITALS: BP 121/63
--- NOTE | 2019-07-09 19:10 | NUR ---
RECD. SITTING ON BED, AWAKE, A/OX4. RESPIRATION EVEN AND UNLABORED. STILL REFUSING TO HAVE NEW IV LINE INSERTED. STATED SHE IS STILL HEARING VOICES THAT TELLS HER TO CUT HERSELF. 1:1 SITTER MONITORING PATIENT NEAR DOOR. PLAN OF CARE FOR THE SHIFT DISCUSSED. VERBALIZED UNDERSTANDING. DENIES PAIN 0/10.
--- NOTE | 2019-07-09 19:10 | NUR ---
ENDORSED TO ORCHARD SPRAYER NURSETERRY, FOR CONTINUITY OF CARE.
--- NOTE | 2019-07-09 22:20 | NUR ---
STATED SHE IS FEELING SUICIDAL, WENT OUT OF THE ROOM AND SIT ON THE CHAIR, INSTRUCTED TO GO BACK TO BED AND WILL CALL MD.
--- NOTE | 2019-07-09 22:40 | NUR ---
SECURITY CAME AND ASSISTED PATIENT BACK TO BED WITH SITTER.
[2019-07-09] MEDS ORDERED: LORazepam 2 MG/ML VIAL IVP PRN (23:00)
[2019-07-10] VITALS: BP 103/75
--- NOTE | 2019-07-10 00:14 | NUR ---
WITH ANXIETY, AGITATED. MEDICATED WITH ATIVAN 2 MG. IM PER MD ORDER.
--- NOTE | 2019-07-10 00:40 | NUR ---
NO AGITATION NOTED, SLEEPING COMFORTABLY IN BED.
--- NOTE | 2019-07-10 05:27 | NUR ---
Still no beds at any of the designated facility [facility]
--- NOTE | 2019-07-10 07:00 | NUR ---
ABLE TO SLEEP WELL. CONDITION REMAIN STABLE. WILL ENDORSE TO AM SHIFT NURSE FOR CONTINUITY OF CARE.
--- NOTE | 2019-07-10 07:12 | NUR ---
RECEIVED REPORT FROM NIGHT NURSE PT IS SLEEPING COMFORTABLY ENVIRONMENTAL AIDE DISTRESS NOTED ON ROOM AIR, SAFETY MEASURES IN PLACE, CALL LIGHT WITHIN REACH. WILL CONTINUE TO MONITOR.
--- NOTE | 2019-07-10 07:52 | NUR ---
recieved report from noc shift at this time there are no avail beds at contracted facilities will cont to monitor and assist in placement
[2019-07-10 08:00] VITALS: BP 106/69
[2019-07-10] MEDS: OXcarbazepine 150 MG TAB PO SCH ×2 (08:50→20:34)
[2019-07-10] MEDS: FLUoxetine 10 MG CAP PO SCH (08:50)
[2019-07-10] MEDS: risperiDONE 1 MG TAB PO SCH ×2 (08:51→20:34)
--- NOTE | 2019-07-10 12:00 | NUR ---
PT IS STABLE AND EATING WELL, NO DISTRESS NOTED. PT IS CALM AND COOPERATIVE. SAFETY MEASURES IN PLACE CALL LIGHT WITHIN REACH. WILL CONTINUE TO MONITOR.
[2019-07-10 16:00] VITALS: BP 105/76
--- NOTE | 2019-07-10 17:00 | NUR ---
PT IS CALM AND STATED SHES OK AND SMILING. WILL CONTINUE TO MONITOR
--- NOTE | 2019-07-10 19:15 | NUR ---
ENDORSED PT TO NIGHT NURSE FOR CONTINUITY OF CARE.PT IS STABLE
--- NOTE | 2019-07-10 19:15 | NUR ---
RECEIVED BEDSIDE REPORT FROM AM SHIFT RN FOR PT'S CONTINUITY OF CARE. PT APPEARS TO BE ASLEEP WITH NO SIGNS OF DISTRESS. SITTER AT BEDSIDE, PT IS ON ROOM AIR, NO IV SITE (PT REFUSED PER RN). SAFETY MEASURES IN PLACE. WILL MONITOR PT THROUGHOUT SHIFT.
--- NOTE | 2019-07-10 20:37 | NUR ---
ADMINISTERED SCHEDULED MEDICATIONS ORDERED. PT TOLERATED THEM WELL. PT STATED SHE "HEARS VOICES TELLING HER TO CUT HERSELF" PT HAS NOT ACT UPON IT. ENCOURAGED PT TO VERBALIZE IF FURTHER VOICES ARE HEARD. FLORIST HELPER MD AWARE. WILL CONTINUE TO MONITOR PT.
--- NOTE | 2019-07-10 22:30 | NUR ---
PT APPEARS TO BE ASLEEP WITH NO SIGNS OF DISTRESS OR DISCOMFORT. SITTER AT BEDSIDE, SAFETY MEASURES IN PLACE. WILL CONTINUE TO MONITOR PT.
[2019-07-11] VITALS: BP 93/60
--- NOTE | 2019-07-11 02:50 | NUR ---
MADE ROUNDS. PT ASLEEP WITH NO SIGNS OF DISTRESS. SITTER AT BEDSIDE. WILL CONTINUE TO MONITOR PT.
--- NOTE | 2019-07-11 06:11 | NUR ---
PT LYING DOWN COMFORTABLY, APPEARS TO BE ASLEEP WITH NO SIGNS OF DISTRESS OR DISCOMFORT. WILL ENDORSE TO AM SHIFT RN FOR PT'S CONTINUITY OF CARE.
--- NOTE | 2019-07-11 07:08 | NUR ---
RECEIVED REPORT FROM NIGHT NURSE, PT IS SLEEPING, SKIN INTACT, ON ROOM AIR, SAFETY MEASURES IN PLACE CALL LIGHT WITHIN REACH. WILL CONTINUE TO MONITOR.
[2019-07-11 08:00] VITALS: BP 104/73
--- NOTE | 2019-07-11 08:25 | NUR ---
RECIEVED REPORT FROM SECURITY PROJECT MANAGER THERE ARE NO BEDS AT CONTRACTED FACILITIES WILL CONT TO MONITOR AND ASSIST IN PLACEMENT
--- NOTE | 2019-07-11 09:30 | NUR ---
MEDICATIONS DUE GIVEN PT VERBALIZES THAT SHES HEARING VOICES AND TELLING HER TO CUT HERSELF. ENCOURAGE HER TO NOT CUT HERSELF AND TO TALK TO THE NURSES OR SITTER.SAFETY MEASURES IN PLACE AND CALL LIGHT WITHIN REACH. WILL CONTINUE TO MONITOR.
[2019-07-11] MEDS: OXcarbazepine 150 MG TAB PO SCH ×2 (09:37→21:04)
[2019-07-11] MEDS: FLUoxetine 10 MG CAP PO SCH (09:37)
[2019-07-11] MEDS: risperiDONE 1 MG TAB PO SCH (09:38)
--- NOTE | 2019-07-11 12:27 | NUR ---
MADE ROUNDS AND PT IS STABLE, NO DISTRESS NOTED, DENIES PAIN SAFETY MEASURES IN PLACE. WILL CONTINUE TO MONITOR.
--- NOTE | 2019-07-11 13:00 | NUR ---
PT IS FEELING ANXIOUS AT THIS TIME AND PT HEARS VOICES TELLING HER TO KILL HERSELF. ENCOURAGED PT TO WATCH TV AND DO PUZZLES.SAFETY ,MEASURES IN PLACE, CALL LIGHT WITHIN REACH. WILL CONTINUE TO MONITOR
--- NOTE | 2019-07-11 14:00 | NUR ---
PT WAS ABLE TO TALK TO HER MOM AND PT IS CRYING, TRIED TO CALM HER DOWN AND WALKED HER. PT IS STABLE AND FEELS RELIEVED.
[2019-07-11] MEDS: LORazepam 0.5 MG TAB PO PRN (14:52)
[2019-07-11 16:00] VITALS: BP 116/75
[2019-07-11] MEDS ORDERED: risperiDONE 1 MG TAB PO SCH (18:00)
--- NOTE | 2019-07-11 19:10 | NUR ---
ENDORSED PT TO NIGHT NURSE FOR CONTINUITY OF CARE, PT IS STABLE.
--- NOTE | 2019-07-11 19:11 | NUR ---
RECEIVED REPORT FROM DAY SHIFT NURSE. PT IN BED RESTING. PT IS AWAKE, ALERT, AND ORIENTED. ABLE TO MAKE NEEDS KNOWN. RESPIRATIONS EVEN AND UNLABORED. SKIN IS WARM, DRY, AND INTACT. RESPIRATIONS ARE EVEN AND UNLABORED TO ROOM AIR. PT DENIES ANY PAIN OR DISCOMFORT. VERBALIZED HEARING VOICES. PT ENCOURAGED TO WATCH TV FOR DISTRACTION. PLAN OF CARE DISCUSSED. PT VERBALIZED UNDERSTANDING. NO REQUESTS MADE AT THIS TIME. SAFETY MEASURES IN PLACE. SITTER AT BEDSIDE. WILL CONTINUE TO MONITOR.
--- NOTE | 2019-07-11 21:04 | NUR ---
SCHEDULED MEDICATIONS GIVEN ORDERED. PT NOT IN DISTRESS. SAFETY MEASURES IN PLACE. SITTER AT BEDSIDE. WILL CONTINUE TO MONITOR.
--- NOTE | 2019-07-11 22:27 | NUR ---
PT ASLEEP. NO S/SX OF DISTRESS NOTED. SITTER AT BEDSIDE. WILL CONTINUE TO MONITOR.
[2019-07-12] VITALS: BP 111/71
--- NOTE | 2019-07-12 | NUR ---
VS STABLE. PT WENT BACK TO SLEEP. NO S/SX OF DISTRESS NOTED. SAFETY MEASURES IN PLACE. SITTER AT BEDSIDE. WILL CONTINUE TO MONITOR.
--- NOTE | 2019-07-12 02:32 | NUR ---
PT ASLEEP. RESPIRATIONS EVEN AND UNLABORED. NO S/SX OF DISTRESS. SITTER IN PLACE. WILL CONTINUE TO MONITOR.
--- NOTE | 2019-07-12 04:28 | NUR ---
PT ASLEEP. NO S/SX OF DISTRESS. PT KEPT COMFORTABLE. SAFETY MEASURES IN PLACE. SITTER AT BEDSIDE. WILL CONTINUE TO MONITOR.
--- NOTE | 2019-07-12 07:11 | NUR ---
ENDORSED TO DAY SHIFT NURSE FOR CONTINUITY OF CARE. PATIENT IN STABLE CONDITION.
--- NOTE | 2019-07-12 07:12 | NUR ---
RECEIVED REPORT FROM FINANCIAL UNDERWRITER NURSE FADUMO. PT RESTING IN BED SLEEPING, AOX4, ON ROOM AIR WITHOUT IV SITE. NO S/S OF RESPIRATORY DISTRESS OR DISCOMFORT NOTED AT THIS TIME. WILL CONTINUE TO MONITOR.
[2019-07-12 07:59] VITALS: BP 98/41
[2019-07-12] MEDS: FLUoxetine 10 MG CAP PO SCH (08:52)
[2019-07-12] MEDS: OXcarbazepine 150 MG TAB PO SCH ×2 (08:53→20:09)
[2019-07-12] MEDS: risperiDONE 1 MG TAB PO SCH ×3 (08:53→17:27)
--- NOTE | 2019-07-12 08:53 | NUR ---
SCHEDULED MEDICATIONS GIVEN AND TOLERATED WELL. PT STATED SHE WAS HEARING VOICES TO CUT HERSELF. REDIRECTED PT TO THINK OF MORE POSITIVE THOUGHTS SUCH MUSIC, BREAKFAST SELECTION AND FAMILY. NO S/S OF RESPIRATORY DISTRESS OR DISCOMFORT NOTED AT THIS TIME. WILL CONTINUE TO MONITOR.
--- NOTE | 2019-07-12 10:00 | NUR ---
SELENA LOPEZ ASSISTED PT WITH LINEN CHANGE, NEW GOWN, SPONGE BATH.
--- NOTE | 2019-07-12 12:37 | NUR ---
SCHEDULED MEDICATION RISPERDAL GIVEN AND TOLERATED WELL. NO S/S OF RESPIRATORY DISTRESS OR DISCOMFORT NOTED AT THIS TIME. WILL CONTINUE TO MONITOR.
--- NOTE | 2019-07-12 14:00 | NUR ---
PT RESTING IN BED. NO S/S OF RESPIRATORY DISTRESS OR DISCOMFORT NOTED AT THIS TIME. WILL CONTINUE TO MONITOR.
[2019-07-12 16:00] VITALS: BP 102/77
--- NOTE | 2019-07-12 16:00 | NUR ---
PT RESTING IN BED. NO S/S OF RESPIRATORY DISTRESS OR DISCOMFORT AT THIS TIME. WILL CONTINUE TO MONITOR.
--- NOTE | 2019-07-12 19:20 | NUR ---
RECEIVED PATIENT IN STABLE CONDITION FROM AM SHIFT NURSE FOR CONTINUITY OF CARE. RESPIRATIONS EVEN, UNLABORED. SKIN WARM/DRY. NO C/O PAIN. NO S/S ACUTE DISTRESS. SITTER AT BEDSIDE. CALL LIGHT WITHIN REACH. WILL CONTINUE TO MONITOR.
--- NOTE | 2019-07-12 19:23 | NUR ---
ENDORSED PT TO HEALTHCARE ADMINISTRATOR NURSE MYRTLE-IDALMIS FOR CONTINUITY OF CARE. PT STABLE AT THIS TIME.
--- NOTE | 2019-07-12 21:17 | NUR ---
PATIENT SITTING IN BED QUIETLY AND CONTINUES TO VERBALIZE PRESENCE OF AUDITORY HALLUCINATIONS. PATIENT IS CALM AND BEHAVIOR IS APPROPRIATE. DUE MEDS GIVEN. SITTER AT BEDSIDE. WILL CONTINUE TO MONITOR.
--- NOTE | 2019-07-12 23:11 | NUR ---
MADE ROUNDS. PATIENT IS ASLEEP. NO S/S ACUTE DISTRESS. SITTER AT BEDSIDE. WILL CONTINUE TO MONITOR.
[2019-07-13] VITALS: BP 94/67
--- NOTE | 2019-07-13 01:10 | NUR ---
PATIENT CONTINUES IN STABLE CONDITION. ASLEEP. NO S/S ACUTE DISTRESS. CALL LIGHT WITHIN REACH. WILL CONTINUE TO MONITOR. Addendum: 07/13/19 at 0445 by Xiomara Martinez RN AMEND: CALL LIGHT WITHIN REACH AND REPLACE WITH: SITTER AT BEDSIDE.
--- NOTE | 2019-07-13 03:33 | NUR ---
PATIENT ASLEEP AND IN STABLE CONDITION. NO S/S ACUTE DISTRESS. SITTER AT BEDSIDE. WILL CONTINUE TO MONITOR.
--- NOTE | 2019-07-13 05:22 | NUR ---
PATIENT IS IN STABLE CONDITION. NO S/S ACUTE DISTRESS. SITTER AT BEDSIDE. WILL CONTINUE TO MONITOR.
--- NOTE | 2019-07-13 06:26 | NUR ---
PATIENT SLEEPING. NO S/S ACUTE DISTRESS. CONTINUES IN STABLE CONDITION. SITTER AT BEDSIDE. WILL CONTINUE TO MONITOR.
--- NOTE | 2019-07-13 07:15 | NUR ---
RECEIVED REPORT FROM PIPE STRAIGHTENER RNTAYLA, FOR CONTINUITY OF CARE. PT IN BED AND ASLEEP. ABLE TO MAKE NEEDS KNOWN. PT. IS ON ROOM AIR, NO SIGNS OF DISTRESS NOTED. SKIN IS WARM, DRY, AND INTACT. PT DENIES ANY PAIN OR DISCOMFORT. PLAN OF CARE DISCUSSED. PT VERBALIZED UNDERSTANDING. NO REQUESTS MADE AT THIS TIME. SAFETY MEASURES IN PLACE. SITTER AT BEDSIDE. WILL CONTINUE TO MONITOR.
[2019-07-13 08:00] VITALS: BP 100/52
--- NOTE | 2019-07-13 09:20 | NUR ---
MORNING MEDICATIONS GIVEN. NO SIGNS OF DISTRESS NOTED. WILL CONTINUE TO MONITOR.
[2019-07-13] MEDS: FLUoxetine 10 MG CAP PO SCH (09:23)
[2019-07-13] MEDS: OXcarbazepine 150 MG TAB PO SCH ×2 (09:24→20:46)
[2019-07-13] MEDS: risperiDONE 1 MG TAB PO SCH ×3 (09:24→16:31)
--- NOTE | 2019-07-13 10:40 | NUR ---
DR. JOY BY THE BEDSIDE. NEW ORDERS FOR INCREASED FREQUENCY OF RISPERDAL, FOR DEPRESSIVE EPISODE. RENEWAL OF 5150 IS GIVEN. WILL CONTINUE TO MONITOR.
--- NOTE | 2019-07-13 11:30 | NUR ---
RECIEVED REPORT FROM STUDENT FINANCIAL SERVICES COUNSELOR THERE ARE NO BEDS AVAIL AT THIS TIME WILL CONT TO MONITOR AND ASSIST IN PLACEMENT
--- NOTE | 2019-07-13 11:35 | NUR ---
SPOKE WITH SIXTO RAYGOZA WHO STATES PT IS ON [id number] AND SHE WILL FAX THAT TO THE CALL CENTER
--- NOTE | 2019-07-13 11:40 | NUR ---
SPOKE TO [facility], AMBER, ON RENEWAL ORDER OF 5154. WILL FAX COPY TO HER.
--- NOTE | 2019-07-13 13:04 | NUR ---
RECIEVED 2CD 0618, RE FAXED PTS PKT TO THE FOLLOWING; [facility] WILL CONT TO MONITOR AND ASSIST IN PLACEMENT
[2019-07-13 16:00] VITALS: BP 102/68
--- NOTE | 2019-07-13 16:30 | NUR ---
AFTERNOON MEDICATIONS GIVEN. PT. STATES INCREASE IN FREQUENCY AND VOLUME IN HEARING VOICES. RELAXATION TECHNIQUES GIVEN TO PT, TV IS TURNED ON DISTRACTION. WILL CONTINUE TO MONITOR.
--- NOTE | 2019-07-13 18:50 | NUR ---
PAGED DR. MEJIA ABOUT PT'S CONDITION. WILL CONTINUE TO MONITOR.
--- NOTE | 2019-07-13 19:10 | NUR ---
ENDORSED TO SENIOR DIRECTOR FINANCE RNTERRY, FOR CONTINUITY OF CARE.
--- NOTE | 2019-07-13 19:11 | NUR ---
RECD. RESTING ON BED, AWAKE, A/OX4. RESPIRATION EVEN AND UNLABORED. STATED STILL HEARING VOICES TELLING HER TO CUT HERSELF. SITTER MONITORING PATIENT FOR SAFETY NEAR DOOR. PLAN OF CARE FOR THE SHIFT DISCUSSED. NEEDS REINFORCEMENT. DENIES PAIN 0/10.
--- NOTE | 2019-07-13 19:30 | NUR ---
Patient's Plan of Care was discussed and reviewed with FANS CLERK: TERRY GARCIA
--- NOTE | 2019-07-13 20:46 | NUR ---
DUE MEDICATION FOR THE NIGHT GIVEN. COOPERATIVE.
[2019-07-13] MEDS: LORazepam 0.5 MG TAB PO PRN (20:47)
--- NOTE | 2019-07-13 20:47 | NUR ---
WITH ANXIETY, MEDICATED WITH ATIVAN PO.
--- NOTE | 2019-07-13 22:40 | NUR ---
OCCASIONALLY TOSSING IN BED. QUIET, NO AGITATION NOTED.
--- NOTE | 2019-07-13 23:40 | NUR ---
SLEEPING COMFORTABLY IN BED.
[2019-07-14] VITALS: BP 100/50
--- NOTE | 2019-07-14 00:04 | NUR ---
No beds still available at any of the facilities packet were faxed to , will continue to make calls for placement.
--- NOTE | 2019-07-14 02:30 | NUR ---
STILL SLEEPING COMFORTABLY IN BED.
--- NOTE | 2019-07-14 04:10 | NUR ---
At this time there are still no vacancy at any of the designated facilities , charge nurse Kaleb RAYGOZA made aware.
--- NOTE | 2019-07-14 04:30 | NUR ---
COMFORTABLE IN BED, SLEEPING.
--- NOTE | 2019-07-14 06:20 | NUR ---
ABLE TO SLEEP WELL. SAFETY MAINTAINED DURING SHIFT.
--- NOTE | 2019-07-14 07:00 | NUR ---
CONDITION REMAIN STABLE. ENDORSED TO IDALMIS OZUNA FOR CONTINUITY OF CARE.
--- NOTE | 2019-07-14 07:00 | NUR ---
RECEIVED REPORT FROM FISHERIES INSPECTOR NURSE NAHUM. PT RESTING IN BED, AOX4, THAI SPEAKING, ON ROOM AIR, W/O IV SITE. DISCUSSED PLAN OF CARE AND PT VERBALIZED UNDERSTANDING. NO S/S OF RESPIRATORY DISTRESS OR DISCOMFORT NOTED AT THIS TIME. WILL CONTINUE TO MONITOR.
[2019-07-14 07:59] VITALS: BP 101/59
[2019-07-14] MEDS: OXcarbazepine 150 MG TAB PO SCH ×2 (09:25→20:07)
[2019-07-14] MEDS: risperiDONE 1 MG TAB PO SCH ×3 (09:25→16:30)
[2019-07-14] MEDS: FLUoxetine 10 MG CAP PO SCH (09:25)
--- NOTE | 2019-07-14 09:25 | NUR ---
SCHEDULED MEDICATIONS GIVEN AND TOLERATED WELL. NO S/S OF RESPIRATORY DISTRESS OR DISCOMFORT NOTED AT THIS TIME. WILL CONTINUE TO MONITOR.
[2019-07-14] MEDS ORDERED: RIS1 PO (10:38)
[2019-07-14] MEDS ORDERED: FLUO10CA24 PO (10:38)
--- NOTE | 2019-07-14 11:16 | NUR ---
PT RESTING IN BED. NO S/S OF RESPIRATORY DISTRESS OR DISCOMFORT NOTED AT THIS TIME. WILL CONTINUE TO MONITOR.
--- NOTE | 2019-07-14 13:12 | NUR ---
SCHEDULED MEDICATION RISPERDAL GIVEN AND TOLERATED WELL. NO S/S OF RESPIRATORY DISTRESS OR DISCOMFORT NOTED AT THIS TIME. WILL CONTINUE TO MONITOR.
--- NOTE | 2019-07-14 15:19 | NUR ---
PT SPEAKING TO FATHER OVER THE PHONE AFTER WAKING UP FROM A NAP. NO S/S OF RESPIRATORY DISTRESS OR DISCOMFORT NOTED AT THIS TIME. WILL CONTINUE TO MONITOR.
[2019-07-14 16:00] VITALS: BP 118/80
--- NOTE | 2019-07-14 16:00 | NUR ---
DR. CRUZREES IN TO SEE PT AND SPOKE WITH PT PARENTS OVER THE PHONE.
--- NOTE | 2019-07-14 16:00 | NUR ---
07/14/2019 RD INITIAL ASSESSMENT COMPLETED PLEASE REFER TO NUTRITION ASSESSMENT UNDER CARE ACTIVITY FOR ESTIMATED NUTRITIONAL NEEDS. RD RECOMMENDATIONS: 1. RECOMMEND CONTINUE REGULAR DIET 2. F/U 7 DAYS; LOW RISK EUGENIA SUBRAMANIAN MBA, RD
--- NOTE | 2019-07-14 16:30 | NUR ---
SCHEDULED MEDICATION RISPERDAL GIVEN AND TOLERATED WELL. NO S/S OF RESPIRATORY DISTRESS OR DISCOMFORT NOTED AT THIS TIME. WILL CONTINUE TO MONITOR.
--- NOTE | 2019-07-14 18:07 | NUR ---
PT RESTING IN BED EATING DINNER. NO S/S OF RESPIRATORY DISTRESS OR DISCOMFORT NOTED AT THIS TIME. WILL CONTINUE TO MONITOR.
--- NOTE | 2019-07-14 19:15 | NUR ---
RECEIVED PATIENT IN STABLE CONDITION FROM AM SHIFT NURSE FOR CONTINUITY OF CARE. RESPIRATIONS EVEN, UNLABORED. SKIN WARM, DRY TO TOUCH. NO C/O PAIN. NO S/S ACUTE DISTRESS. PATIENT VERBALIZED AUDITORY HALLUCINATIONS AT THIS TIME. MOOD IS CALM AND COMPLIANT. SPONGE BATH PROVIDED BY STAFF. SITTER AT BEDSIDE. WILL CONTINUE TO MONITOR.
--- NOTE | 2019-07-14 21:40 | NUR ---
PATIENT READING MAGAZINE AT BEDSIDE. PATIENT IS CALM. NO S/S ACUTE DISTRESS. SITTER AT BEDSIDE. WILL CONTINUE TO MONITOR.
--- NOTE | 2019-07-14 23:34 | NUR ---
PATIENT SLEEPING. NO S/S ACUTE DISTRESS. SITTER AT BEDSIDE. WILL CONTINUE TO MONITOR.
[2019-07-15] VITALS: BP 98/55
--- NOTE | 2019-07-15 01:14 | NUR ---
MADE ROUNDS. PATIENT CONTINUES IN STABLE CONDITION. NO S/S ACUTE DISTRESS. SITTER AT BEDSIDE. WILL CONTINUE TO MONITOR.
--- NOTE | 2019-07-15 03:25 | NUR ---
PATIENT CONTINUES IN STABLE CONDITION. ASLEEP AND IN NO S/S ACUTE DISTRESS. SITTER AT BEDSIDE. WILL CONTINUE TO MONITOR.
--- NOTE | 2019-07-15 05:21 | NUR ---
AWAKE AND IN STABLE CONDITION. CONTINUES TO EXPERIENCE AUDITORY HALLUCINATIONS. PATIENT IS CALM AT THIS TIME. NO C/O PAIN. NO S/S ACUTE DISTRESS. SITTER AT BEDSIDE. WILL CONTINUE TO MONITOR.
--- NOTE | 2019-07-15 07:20 | NUR ---
RECEIVED PATIENT FROM NIGHT NURSE. PATIENT IS RESTING COMFORTABLY AT THIS TIME. NO REPORTS OF ANY SUICIDAL IDEATIONS AT THIS TIME, CALL LIGHT WITHIN REACH. WILL CONTINUE WITH CARE.
[2019-07-15 08:00] VITALS: BP 101/50
[2019-07-15] MEDS: FLUoxetine 10 MG CAP PO SCH (08:16)
[2019-07-15] MEDS: risperiDONE 1 MG TAB PO SCH ×3 (08:17→16:11)
[2019-07-15] MEDS: OXcarbazepine 150 MG TAB PO SCH ×2 (08:17→22:09)
--- NOTE | 2019-07-15 08:17 | NUR ---
PT WAS GIVEN THE SCHEDULED AM MEDICATIONS, PT IS CALM SEATED ON THE BED, 1:1 SITTER ON BEDSIDE, V/S STABLE AND NO SIGN OF DISTRESS NOTED. WILL MONITOR PT.
--- NOTE | 2019-07-15 12:15 | NUR ---
PATIENT ATE LUNCH AND SITTING IN BED COMFORTABLY. PATIENT IS IN GOOD SPIRIT. SITTER AT BEDSIDE. WILL CONTINUE TO MONITOR.
[2019-07-15 16:00] VITALS: BP 114/67
--- NOTE | 2019-07-15 16:11 | NUR ---
Intake paperwork was refaxed to the following facilities for placement. [facility]/ Sarah/ [facility]/ [facility]/ [facility] Will keep facility updated with any information
--- NOTE | 2019-07-15 16:15 | NUR ---
RISPERDAL GIVEN ORDERED. PATIENT IS LAYING COMFORTABLY IN BED. NO SUICIDAL IDEATIONS AT THIS TIME. PATIENT IS ENCOURAGED TO USE COPING SKILLS WHEN HEARING VOICES. SITTER NEAR BEDSIDE. WILL CONTINUE TO MONITOR.
--- NOTE | 2019-07-15 19:10 | NUR ---
IBRAHIMA GARCIA CALLED AND MADE AWARE THAT FACILITY IS NOT ABLE TO ADMIT PATIENT BECAUSE THEY DONT HAVE THE NECESSARY MEANS TO TREAT AUTISM. DR MEJIA IS MADE AWARE. PATIENT'S FATHER CALLED AND WAS MADE AWARE OF STATUS AND IS WILLING TO TAKE DAUGHTER HOME.
--- NOTE | 2019-07-15 19:20 | NUR ---
ENDORSED TO NIGHT NURSE. PATIENT IN STABLE CONDITION.
--- NOTE | 2019-07-15 19:21 | NUR ---
RECEIVED PATIENT IN STABLE CONDITION FROM AM SHIFT NURSE FOR CONTINUITY OF CARE. RESPIRATIONS EVEN, UNLABORED. SKIN WARM, DRY TO TOUCH. NO C/O PAIN. NO S/S ACUTE DISTRESS. PATIENT VERBALIZED AUDITORY HALLUCINATIONS AT THIS TIME. MOOD IS CALM AND COMPLIANT. SITTER AT BEDSIDE. WILL CONTINUE TO MONITOR.
[2019-07-15] MEDS ORDERED: OXCA300T PO (19:39)
--- NOTE | 2019-07-15 19:40 | NUR ---
DR. REN WAS HERE. PER DOCTOR 2276 DISCONTINUED,. WILL INFORM DR. IRBY / SOCIAL INSURANCE ANALYST DOCTOR.
--- NOTE | 2019-07-15 19:45 | NUR ---
MADE A CALL TO DR. SUREKHA Zarco/O OF [facility], AWAITING FOR A CALL BACK
--- NOTE | 2019-07-15 19:54 | NUR ---
DR. SHIPLEY CHECK WRITING MACHINE OPERATOR OF DR. IRBY, ABLE TO CALL BACK AND WAS INFORMED THAT THE 5150 FROM [facility] WAS DISCONTINUED. [facility] PER ENDORSEMENT DOES NOT HAVE FACILITIES FOR AUTISM THUS THEY COULD NOT ACCEPT THE PT. DR. SHIPLEY MADE AWARE, AND FATHER ENDORSED SAID HE COULD TAKE PATIENT HOME. SO DR. SHIPLEY ORDERED DISCHARGE TO HOME
[2019-07-15 19:57] VITALS: BP 115/78
--- NOTE | 2019-07-15 20:00 | NUR ---
DAD OF PATIENT WAS INFORMED THAT DAUGHTER IS BEING DISCHARGED TODAY. BUT PER DAD, DUE TO WORK COULD NOT GET HER DAUGHTER RIGHT NOW. HE SAID HE WILL PICK HER UP AT 10 PM.
[2019-07-15 20:16] VITALS: BP 115/78
--- NOTE | 2019-07-15 22:00 | NUR ---
DAD OF PATIENT AGAIN CALLED AND SAID HE COULD NOT MAKE IT BECAUSE OF WORK AND SAID IF HE CAN PICK HER UP AT 12 MIDNIGHT. INFORMED CHARGE NURSE.
--- NOTE | 2019-07-15 22:01 | NUR ---
DAD TALKED TO HIS DAUGHTER OVER THE PHONE, AND INFORMED HER THAT HE WILL BE DELAYED
--- NOTE | 2019-07-16 | NUR ---
DAD OF PATIENT AGAIN CALLED AND SAID HE COULD NOT MAKE IT BECAUSE OF WORK AND SAID IF HE CAN PICK HER UP AT 1 AM OR 2 AM. INFORMED CHARGE NURSE.
--- NOTE | 2019-07-16 01:30 | NUR ---
PT WAS PICKED UP BY DAD JUST NOW DUE TO WORK RESPONSIBILITIES, PATIENT WAS WHEELED TO THE LOBBY, AND MET BY DAD OUTSIDE.
== END 2019-07-16 01:30 | disposition home or self-care (01) | DRG 753 ==
LOC: MED 15:47 → MTU 07-08 01:45 → OBSVTOIN 07-10 13:02
PROVIDERS: ADMIT Hospitalist; ATTEND Hospitalist
DX: F31.9 Bipolar disorder, unspecified (principal); R45.851 Suicidal ideations; Z68.42 Body mass index [BMI] 45.0-49.9, adult; G40.909 Epilepsy, unspecified, not intractable, without status epilepticus; F84.0 Autistic disorder; E66.9 Obesity, unspecified
CPT/HCPCS: 36415; 80053; 80305; 81003; 85025; 87081; 99285; G0378; G0480; G0482; J2060

== ENCOUNTER 2019-08-18 19:58 | Emergency (ER) | payer OTHER ==
[~2019-08-18] VITALS: Ht 177.8 cm; Wt 104.3 kg
[~2019-08-18 19:58] MED LIST changes: -ARIP30TA1 PO; +FLUO10CA24 PO; -OLAN2.5T1 PO; +OXCA300T PO; -PAX20 PO; +RIS1 PO
[2019-08-18 20:00] VITALS: BP 123/62
--- NOTE | 2019-08-18 20:05 | NUR ---
PT TO BED 7 ASSUME CARE TO RADHA RAYGOZA
--- NOTE | 2019-08-18 20:10 | NUR ---
29 YEAR OLD FEMALE BIBA FROM HOME FOR SEIZURES, PER EMS PT HAS HAD 5-6 SEIZURES TODAY AND LAST SEIZURE WAS 5-10MINS. PT STATES THAT SHE CAN TELL BEFORE SHE IS GOING TO HAVE A SEIZURE, NOT AT THIS TIME. PT AOX3 TO NAME, , LOCATION. PT GCS 15. PER MOTHER PT HAS HISTORY OF SEIZURE AND HAS TAKEN ALL MEDICATIONS ON TIME AND NOT MISS ANY. MOTHER AND PT DENIES TRAUMA OR FALL FROM SEIZURE. PT BREATHING EVEN AND UNLABORED, LUNGS CLEAR BL, SKIN WARM AND DRY. BED IN LOWEST POSITION, LOCKED, BED RAIL UPX2. SEIZURE PADS ON BED. PT PLACED ON BEDSIDE MONITOR, VS STABLE. ERMD MADE AWARE PMH - SEIZURE, AUTISM ALLERGIES - NKA
--- NOTE | 2019-08-18 20:43 | NUR ---
MOTHER AT BEDSIDE OF PT
--- NOTE | 2019-08-18 20:45 | NUR ---
PER ERMD WILL CHANGE ORDER OF KENDRARA
[2019-08-18] MEDS ORDERED: levETIRAcetam 500 MG in NACL 0.9% 100 ML IV ONE (20:50)
--- NOTE | 2019-08-18 20:54 | NUR ---
CALLED RADIOLOGY THERAPIST REGARDING NO NEIDA IN [facility], STATES SHE WILL CALL ME BACK
[2019-08-18] MEDS ORDERED: levETIRAcetam 100 MG/ML VIAL IV ONE (20:59)
[2019-08-18] MEDS ORDERED: levETIRAcetam 500 MG in NACL 0.9% 100 ML IV SCH (21:00)
[2019-08-18 21:03] LABS: BASOPHILS # (AUTO) 0.1 K/uL (0.00-0.22); BASOPHILS % (AUTO) 0.7 % (0.0-2.0); EOSINOPHILS % (AUTO) 0.5 % (0.0-4.0); HEMATOCRIT 40.5 % (36-48); HEMOGLOBIN 13.4 g/dL (12.0-16.0); LYMPHOCYTES % (AUTO) 11.3 % (20.5-51.1); MEAN CORPUSCULAR HEMOGLOBIN 29 pg (27-31); MEAN CORPUSCULAR HGB CONC 33 g/dL (33-37); MEAN CORPUSCULAR VOLUME 88.3 fL (80-94); MONOCYTES # (AUTO) 0.4 K/uL (0.8-1.0); MONOCYTES % (AUTO) 4.8 % (1.7-9.3); NEUTROPHILS # (AUTO) 7.5 K/uL (1.8-7.7); NEUTROPHILS % (AUTO) 82.7 % (42.2-75.2); PLATELET COUNT (AUTO) 181 K/uL (140-450); RED BLOOD CELL COUNT(AUTO) 4.59 MIL/uL (4.20-5.40); RED CELL DISTRIBUTION WIDTH 14.2 % (11.6-13.7)
--- NOTE | 2019-08-18 21:05 | NUR ---
MEDICATION STARTED ORDERED. PT ALERT AND AWAKE, BREATHING EVEN AND UNLABORED
--- NOTE | 2019-08-18 21:09 | NUR ---
BEDSIDE COMMODE PLACED AT BEDSIDE, UNABLE TO URINATE AT THIS TIME
[2019-08-18 21:28] LABS: ALBUMIN 3.7 g/dL (3.4-5.0); ANION GAP 15.3 (8-16); CARBON DIOXIDE 24.7 mmol/L (21-32); CREATININE 1.2 mg/dL (0.6-1.3); TOTAL BILIRUBIN 0.3 mg/dL (0.0-1.0)
--- NOTE | 2019-08-18 21:50 | NUR ---
PT ALERT AND AWAKE, BREATHING EVEN AND UNLABORED. WILL CONTINUE TO MONITOR. MOTHER REMAINS AT BEDSIDE
--- NOTE | 2019-08-18 22:04 | NUR ---
XRAY AT BEDSIDE
[2019-08-18 22:10] LABS: APPEARANCE,URINE CLEAR (CLEAR); BILIRUBIN,URINE NEGATIVE (NEGATIVE); BLOOD, URINE NEGATIVE (NEGATIVE); COLOR,URINE YELLOW (YELLOW); LEUKOCYTE ESTERASE ,URINE NEGATIVE (NEGATIVE); NITRITE, URINE NEGATIVE (NEGATIVE); PH,URINE 5.5 (5.0-9.0); UGLUCOSE NEGATIVE (NEGATIVE)
--- NOTE | 2019-08-18 22:26 | NUR ---
PT ALERT AND AWAKE, BREATHING EVEN AND UNLABORED. WILL CONTINUE TO MONITOR. MOTHER REMAINS AT BEDSIDE
--- NOTE | 2019-08-18 22:28 | NUR ---
Note kavitha in EDM - 08/18/19 at 2259 by MEDJellyJ Patient discharged with v/s stable by Dr Olivas. Written and verbal after care instructions about vaginal bleeding during given and explained. Patient verbalized understanding. Ambulatory with steady gait. All questions addressed prior to discharge. Advised to follow up with PMD. Excuse from work form given.
[2019-08-19 00:21] VITALS: BP 103/64
--- NOTE | 2019-08-19 00:22 | NUR ---
Patient discharged with v/s stable. Written and verbal after care instructions given and explained. Patient verbalized understanding. Wheel Chair Assisted with to home. All questions addressed prior to discharge. Advised to follow up with PMD.
== END 2019-08-19 00:04 | disposition home or self-care (01) ==
LOC: MED 19:58
DX: G40.909 Epilepsy, unspecified, not intractable, without status epilepticus (principal); Z79.899 Other long term (current) drug therapy
CPT/HCPCS: 36415; 71045; 80053; 81003; 85025; 96365; 99284; J1953; Q0092

== ENCOUNTER 2019-10-07 14:04 | Observation (INO) | payer OTHER, SELFPAY ==
[~2019-10-07] VITALS: Ht 172.7 cm; Wt 108.4 kg
--- NOTE | 2019-10-07 14:04 | NUR ---
THEODORE VEGA ALS TO ER BED 05
[2019-10-07 14:13] VITALS: BP 121/75
--- NOTE | 2019-10-07 14:20 | NUR ---
Pt biba from home for SI and placed on 5150 by [facility]. Pt states she wants to take her life and tried to slit bilateral wrists with shaving razor. Denies HI. Multiple SI attempts in the past. 3 superfacial lacerations on the left anterior wrist and 2 superfacial lacerations on the right anterior wrist w/o active bleeding noticed. Donavan hands are with full ROM, radial pulses are +3 bilaterally. AAOX3 WITH EVEN AND STEADY GAIT; HR EVEN AND REGULAR; PT DENIES ANY FEVER, CP, SOB, OR COUGH AT THIS TIME; PATIENT STATES PAIN OF 0/10 AT THIS TIME; VSS; PATIENT POSITIONED FOR COMFORT; HOB ELEVATED; BEDRAILS UP X2; BED DOWN. ER MD MADE AWARE OF PT STATUS. 1-1 sitter is at bedside.
--- NOTE | 2019-10-07 14:58 | NUR ---
Covid swab collected from pt and sent to lab
--- NOTE | 2019-10-07 14:59 | NUR ---
Dr Spears at bedside examining pt
--- NOTE | 2019-10-07 15:10 | NUR ---
20 G IV INSERTED ON PT'S RIGHT HAND. PT STATES SHE IS HEARING VOICES OF SOMEONE IS TELLING HER TO CUT HERSELF AND KILL HERSELF. TOLD PT THAT WHAT SHE IS HEARING IS NOT REAL, PT DEMONSTRATES UNDERSTANDING AND IS ABLE TO CALM DOWN.
[2019-10-07 15:36] LABS: BASOPHILS % (AUTO) 0.7 % (0.0-2.0); EOSINOPHILS # (AUTO) 0.1 K/uL (0-0.4); EOSINOPHILS % (AUTO) 2.4 % (0.0-4.0); HEMATOCRIT 42.5 % (36-48); LYMPHOCYTES # (AUTO) 1.1 K/uL (2.5-16.5); MEAN CORPUSCULAR HEMOGLOBIN 29 pg (27-31); MEAN CORPUSCULAR HGB CONC 33 g/dL (33-37); MEAN CORPUSCULAR VOLUME 87.6 fL (80-94); MONOCYTES # (AUTO) 0.5 K/uL (0.8-1.0); NEUTROPHILS # (AUTO) 4.2 K/uL (1.8-7.7); NEUTROPHILS % (AUTO) 69.9 % (42.2-75.2); PLATELET COUNT (AUTO) 195 K/uL (140-450); RED BLOOD CELL COUNT(AUTO) 4.85 MIL/uL (4.20-5.40); RED CELL DISTRIBUTION WIDTH 14.3 % (11.6-13.7); WHITE BLOOD COUNT (AUTO) 5.9 K/uL (4.8-10.8)
[2019-10-07 15:40] LABS: APPEARANCE,URINE SL CLOUDY (CLEAR); BILIRUBIN,URINE NEGATIVE (NEGATIVE); BLOOD, URINE NEGATIVE (NEGATIVE); COLOR,URINE YELLOW (YELLOW); LEUKOCYTE ESTERASE ,URINE TRACE (NEGATIVE); NITRITE, URINE NEGATIVE (NEGATIVE); PH,URINE 7.5 (5.0-9.0); UGLUCOSE NEGATIVE (NEGATIVE)
[2019-10-07 16:06] LABS: BARBITURATE, URINE NEGATIVE ng/ml (NEG <=200); BENZODIAZEPINE, URINE NEGATIVE ng/mL (NEG <=200); CANNABINOID, URINE NEGATIVE ng/mL (NEG <=50); COCAINE, URINE NEGATIVE ng/mL (NEG <=300); OPIATE, URINE NEGATIVE ng/mL (NEG <=2000); PHENCYCLIDINE SCREEN,URINE NEGATIVE ng/mL (NEG <=25)
[2019-10-07 16:30] LABS: RBC,URINE 0-5 /HPF (0-5); WBC,URINE 0-5 /HPF (0-5)
--- NOTE | 2019-10-07 17:17 | NUR ---
PT IS RESTING IN THE BED QUIETLY AND STATES SHE IS STILL HEARING VOICES TO TELL HER CUT HERSELF. PT IS CALM AND UNDISTRESS AT THIS TIME.
--- NOTE | 2019-10-07 17:54 | NUR ---
DINNER PROVIDED TO PT TO BEDSIDE. PT IS EATING IN THE BED.
[2019-10-07] MEDS ORDERED: ONDANSETRON 4 MG/2 ML VIAL IVP PRN (19:10)
[2019-10-07] MEDS ORDERED: ACETAMINOPHEN 325 MG TAB PO PRN (19:10)
--- NOTE | 2019-10-07 19:12 | NUR ---
REPORT GAVE TO IDALMIS CELAYA. TRANSFER CARE AT THIS TIME.
--- NOTE | 2019-10-07 19:13 | NUR ---
REPORT FROM TABBY RAYGOZA
[2019-10-07] MEDS ORDERED: HAL5 PO (19:22)
[2019-10-07] MEDS ORDERED: RISP0.5T3 PO (19:22)
[2019-10-07] MEDS ORDERED: FLUO40CA6 PO (19:22)
--- NOTE | 2019-10-08 00:08 | NUR ---
PT RESTING IN BED, AROUSABEL TO VOICE, PT DENIES PAIN AT THIS TIME. PT STATES SHE HEARS AUDITORY HALLUCINATIONS TELLING HER TO CUT HERSELF.
--- NOTE | 2019-10-08 02:14 | NUR ---
providing relief and cover for primary IDALMIS Godoy.assumed pt care at this time.
--- NOTE | 2019-10-08 04:00 | NUR ---
PT SLEEPING IN BED, AROUSABLE TO VOICE, VSS, PT REPORTS SHE STILL HAS AUDITORY HALLUCINATIONS TELLING HER TO "CUT MYSELF"
--- NOTE | 2019-10-08 07:15 | NUR ---
Patient will be admitted to care of [facility]. Admited to med/surg. Will go to room 110. Belongings list completed. Report to Trav RAYGOZA.
--- NOTE | 2019-10-08 07:30 | NUR ---
received report from [facility] nurse, assumed care. pt resting comfortably with no s/s of pain and/or distress at this time. personal belongings, bedside table, call light within reach. will continue to monitor.
[2019-10-08 08:00] VITALS: BP 130/89
--- NOTE | 2019-10-08 08:39 | NUR ---
Received report from manager shift. [facility] aware patient is still pending Covid results.
--- NOTE | 2019-10-08 09:15 | NUR ---
PATIENT HAS BEEN SCREENED AND CATEGORIZED LOW NUTRITION RISK. PATIENT WILL BE SEEN WITHIN 7 DAYS OF ADMISSION. 10/14/[address]
--- NOTE | 2019-10-08 12:52 | NUR ---
PT CONTINUES ON SUICIDE WATCH WITH 11/09 SITTER AT DOOR. PT STATES "THERE'S NOTHING I NEED." ROUNDING ON PT EVERY HOUR. WILL CONTINUE TO MONITOR.
--- NOTE | 2019-10-08 14:20 | NUR ---
DC PLANNIN YRS OLD FEMALE PATIENT WAS ADMITTED FROM HOME WITH A DX OF SUICIDAL IDEATION. PATIENT HAS A HX OF AUTISM , BIPOLAR ,SEIZURE, SCHIZOPHRENIA AND MORBID OBESITY. COVID TEST PENDING. CONSULTED WITH PSYCHIATRY DR MEJIA. DC PLAN PER PSYCH PRIYANKA. CM TO FOLLOW Addendum: 10/09/19 at 1401 by Poly Goldman CM SET UP TRANSPORTATION WITH [facility]. [facility] FOR TRANSPORTATION OS 2:30 PM. NOTIFIED IDALMIS REYES Addendum: 10/09/19 at 1404 by Poly Goldman CM IDALMIS REYES WILL NOTIFY FAMILY MEMBER OF PATIENT THAT SHE IS BEING TRANSFERRED
--- NOTE | 2019-10-08 14:53 | NUR ---
PT PIV TO RIGHT HAND FELL OUT WHILE PT WAS SLEEPING. GAUZE AND SECURED WITH TAPE. PT TOLERATED WELL.
[2019-10-08 16:00] VITALS: BP 130/84
--- NOTE | 2019-10-08 16:53 | NUR ---
MEAT AND SEAFOOD MANAGER NOTE: SW ATTEMPTED TO CONTACT PATIENT'S ROOM'S PHONE AND PATIENT'S EMERGENCY CONTACT JONATHAN KRUSE [phone]. PATIENT DID NOT ANSWER THE PHONE. SW CONTACTED PATIENT'S NURSE IDALMIS HERNADEZ BUT PATIENT DID NOT RESPOND. KM WILL FOLLOW UP. Addendum: 10/09/19 at 1410 by Shahid Munoz SS KM FOLLOWED UP WITH PATIENT BUT PATIENT IS BEING DISCHARGED TO PSYCH FACILITY.
--- NOTE | 2019-10-08 18:05 | NUR ---
care plan reviewed, interventions implemented: continuous monitoring d/t suicidal ideation (sitter present), pt repositioned frequently throughout shift, labs and i/o monitored. VSS, afebrile, o2 sat >92% on RA. no c/o pain throughout shift. pt sleeping majority of shift; spoke with pt's mother (Larissa), she stated that pt also sleeps a lot at home. personal belongings, bedside table, call light within reach. will continue to monitor.
--- NOTE | 2019-10-08 19:00 | NUR ---
Received report from day shift and will continue to monitor notes and labs, patient is still pending COVID results.
--- NOTE | 2019-10-08 19:05 | NUR ---
RECEIVED PT IN STABLE CONDITION FROM AM NURSE. PT IS AWAKE ALERT AND ORIENTEDX4. M/S PT, NO DISCOMFORT NOTED. NO IV ACCESS ACCORDING TO AM NURSE, IS AWARE. PT COMFORTABLY RESTING ON BED. 1:1 SITTER IN ATTENDANCE. BED IN LOWEST POSITION, SIDE RAILS UP X2. WILL CONTINUE TO MONITOR.
[2019-10-08 20:00] VITALS: BP 93/45
--- NOTE | 2019-10-08 21:00 | NUR ---
CHECKED ON PT. SLEEPING ON BED, 1:1 SITTER STILL IN ATTENDANCE.
--- NOTE | 2019-10-08 23:00 | NUR ---
MADE ROUNDS. PT SLEEPING COMFORTABLY IN BED.
[2019-10-09] VITALS: BP 100/60
--- NOTE | 2019-10-09 00:30 | NUR ---
Called the following [facility] Vern Ryan contracted psych facilities regarding bed placement, currently no bed vacancies at this time. [facility], spoke with Razia, patient still on wait list. [facility], spoke with Cullen, can not accommodate patient due to pending admissions. [facility], spoke with Radha. [facility], spoke with Joanie. [place] [facility], spoke with Nedra. Tele unit will be notified if and when a bed becomes available. 5150 will 10/09 @ 7118
--- NOTE | 2019-10-09 01:00 | NUR ---
ROUNDS DONE, PT STILL SLEEPING IN BED, AROUSABLE TO NAME. WILL CONTINUE TO MONITOR.
--- NOTE | 2019-10-09 02:28 | NUR ---
ENDORSED PT TO SALVADOR FOR CONTINUITY OF CARE.
--- NOTE | 2019-10-09 02:30 | NUR ---
RECEIVED PT FROM GRETEL MASTERS RN PT SLEEPING AT THIS TIME NOT DISTRESS NOTED , NOT IV ACCESS ACCORDING TO THE REPORT DOCTOR ALREADY AWARE . AND SITTER AT BED SIDE ALL TIME
--- NOTE | 2019-10-09 04:00 | NUR ---
PT RESTING ON BED NOT DISTRESS NOTED , SITTER AT BED SIDE
--- NOTE | 2019-10-09 06:00 | NUR ---
PT REMAIN CALM AT THIS TIME , NOT DISTRESS NOTED , SITTER AT BED SIDE
--- NOTE | 2019-10-09 07:25 | NUR ---
PT IS ENDORSED TO DY SHIFT NURSE FOR CONTINUE OF CARE
--- NOTE | 2019-10-09 07:26 | NUR ---
RECEIVED REPORT FROM SCHOOL CLEANER NURSE. PATIENT LYING DOWN IN BED SLEEPING, AROUSABLE BY VOICE. NO DISTRESS NOTED. AAOX3, CALM, COOPERATIVE, NO THOUGHTS OF HURTING SELF AT THIS TIME. SKIN COLOR APPROPRIATE TO ETHNICITY, WARM TO TOUCH. HAS WRIST EXCORIATIONS FROM CUTTING SELF. NO IV SITE AT THIS TIME, PATIENT REFUSED NEW IV INSERTION PER NIGHT RN. MD ALREADY AWARE. REVIEWED PLAN OF CARE WITH PATIENT. PATIENT VERBALIZED UNDERSTANDING. SAFETY MEASURES IN PLACE, SITTER AT BEDSIDE. WILL CONTINUE TO MONITOR.
--- NOTE | 2019-10-09 07:57 | NUR ---
Packet faxed to the following facilities: [facility]
[2019-10-09 08:00] VITALS: BP 103/63
--- NOTE | 2019-10-09 09:00 | NUR ---
PATIENT SITTING IN BED. NO DISTRESS NOTED.
--- NOTE | 2019-10-09 11:33 | NUR ---
PATIENT LYING DOWN IN BED SLEEPING, AROUSABLE BY VOICE. NO DISTRESS NOTED. DENIES ANY PAIN. DENIES THOUGHTS OF HARMING SELF AT THIS TIME. WILL CONTINUE TO MONITOR.
--- NOTE | 2019-10-09 13:37 | NUR ---
Patient has been accepted to [facility] Unit #2, Room#1617-C, under Dr. Bonilla. For report, please call [phone]. Address is [address] [place] [id number].
--- NOTE | 2019-10-09 14:30 | NUR ---
[facility] HAS FOUND A INPATIENT PSYCH BED FOR PATIENT AT [facility] IN [place]. NOTIFIED [facility] VILLA CM TO ARRANGE FOR TRANSPORT.
--- NOTE | 2019-10-09 15:00 | NUR ---
DISCHARGE INSTRUCTIONS PROVIDED TO PATIENT IN PREFERRED LANGUAGE OF CZECH. INSTRUCTIONS ON MEDICATION REGIMEN AND SIDE EFFECTS, AND WAYS TO MANAGE SUICIDAL IDEATION. PATIENT VERBALIZED COMPLETE UNDERSTANDING. ANSWERED ALL OF PATIENT'S QUESTIONS REGARDING TRANSFER TO [facility]. CALLED PATIENT'S MOTHER, JONATHAN AND NOTIFIED HER THAT HER DAUGHTER WAS BEING TRANSFERRED TODAY. JONATHAN VERBALIZED UNDERSTANDING AND ANSWERED ALL HER QUESTIONS REGARDING TRANSFER. [facility] TANSPORT ON UNIT. REPORT GIVEN TO [facility] TRANSPORTERS. ID BANDS REMOVED. ALL PATIENT'S BELONGINGS WITH [facility] TRANSPORT. PATIENT TRANSFERRED AT THIS TIME TO [facility] IN STABLE CONDITION.
== END 2019-10-09 15:00 ==
LOC: MED 14:04 → MMU 19:06 → MTU 10-08 06:17
PROVIDERS: ADMIT Internal Medicine; ATTEND Internal Medicine
DX: R45.851 Suicidal ideations (principal); Z20.828 Contact with and (suspected) exposure to other viral communicable diseases; F31.9 Bipolar disorder, unspecified; G40.909 Epilepsy, unspecified, not intractable, without status epilepticus; F20.9 Schizophrenia, unspecified; E66.01 Morbid (severe) obesity due to excess calories; S61.512A Laceration without foreign body of left wrist, initial encounter; Z23 Encounter for immunization; Z79.899 Other long term (current) drug therapy; Z68.36 Body mass index [BMI] 36.0-36.9, adult; W26.8XXA Contact with other sharp object(s), not elsewhere classified, initial encounter; Y93.89 Activity, other specified; Y92.009 Unspecified place in unspecified non-institutional (private) residence as the place of occurrence of the external cause
CPT/HCPCS: 36415; 80053; 80305; 81001; 85025; 90471; 90715; 99285; G0378; G0482; U0003; G0480

== ENCOUNTER 2022-12-10 17:19 | Emergency (ER) | payer OTHER ==
[~2022-12-10] VITALS: Ht 163.1 cm; Wt 141.5 kg
[~2022-12-10 17:19] MED LIST changes: -FLUO10CA24 PO; +FLUO40CA6 PO; +HAL5 PO; -RIS1 PO; +RISP0.5T3 PO
[2022-12-10 17:53] VITALS: BP 124/92; PULSE 99; RESP 18; TEMP 99.8; O2SAT 98
[2022-12-10 17:55] LABS: APPEARANCE,URINE CLEAR (CLEAR); BILIRUBIN,URINE NEGATIVE (NEGATIVE); BLOOD, URINE 3+ (NEGATIVE); COLOR,URINE YELLOW (YELLOW); LEUKOCYTE ESTERASE ,URINE 1+ (NEGATIVE); NITRITE, URINE NEGATIVE (NEGATIVE); PROTEIN,URINE 1+ (NEGATIVE); UGLUCOSE NEGATIVE (NEGATIVE); UROBILINOGEN,URINE 0.2 EU/dL (0.2 - 1)
[2022-12-10 18:04] LABS: BACTERIA,URINE 2+ /HPF (None Seen)
[2022-12-10 18:05] LABS: MUCUS,URINE 1+ /LPF (None Seen); SQUAMOUS EPITHELIAL CELL,UR >10 (MANY) /LPF (0-3 (FEW))
[2022-12-10] MEDS ORDERED: CIPR500T4 PO (18:19)
[2022-12-10] MEDS ORDERED: IBUP-2213 PO (18:19)
== END 2022-12-10 18:38 | disposition home or self-care (01) ==
LOC: MED 17:19
DX: N39.0 Urinary tract infection, site not specified (principal); Z79.899 Other long term (current) drug therapy
CPT/HCPCS: 81001; 81025; 87086; 99283

== ENCOUNTER 2022-12-16 11:18 | Emergency (ER) | payer OTHER ==
[~2022-12-16] VITALS: Ht 167.6 cm; Wt 142.0 kg
[~2022-12-16 11:18] MED LIST changes: +CIPR500T4 PO; +IBUP-2213 PO
[2022-12-16 11:30] VITALS: BP 117/91; PULSE 99; RESP 18; TEMP 99; O2SAT 100
[2022-12-16 12:08] VITALS: O2SAT 100
[2022-12-16 12:08] LABS: APPEARANCE,URINE CLEAR (CLEAR); BILIRUBIN,URINE NEGATIVE (NEGATIVE); BLOOD, URINE NEGATIVE (NEGATIVE); COLOR,URINE YELLOW (YELLOW); LEUKOCYTE ESTERASE ,URINE NEGATIVE (NEGATIVE); NITRITE, URINE NEGATIVE (NEGATIVE); PH,URINE 7.5 (5.0-9.0); PROTEIN,URINE NEGATIVE (NEGATIVE); UGLUCOSE NEGATIVE (NEGATIVE); UROBILINOGEN,URINE 0.2 EU/dL (0.2 - 1)
[2022-12-16 12:39] VITALS: BP 117/91; PULSE 99; RESP 18; TEMP 99; O2SAT 100
== END 2022-12-16 12:43 | disposition home or self-care (01) ==
LOC: MED 11:18
DX: R30.0 Dysuria (principal); Z79.899 Other long term (current) drug therapy; Z79.1 Long term (current) use of non-steroidal anti-inflammatories (NSAID)
CPT/HCPCS: 81003; 81025; 99283